=== PATIENT | female | born 1935 | race Caucasian/White ===

== ENCOUNTER 2024-10-03 18:05 | Inpatient (IN) | payer MEDICARE, SELFPAY ==
[2024-10-03] VITALS (13 sets, daily range): BP systolic 95–109; BP diastolic 48–83; PULSE 83–165; RESP 16–23; TEMP 37.2–37.4; O2SAT 96–99; BMI 19.4
--- NOTE | 2024-10-03 18:19 | EKG_ITS ---
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
--- NOTE | 2024-10-03 19:09 | EDNOTE_ITS ---
ED Arrhythmia Palp. RME/HPI General Chief Complaint: Arrhythmia/Palpitations Stated Complaint: WEAKNESS Time Seen by Provider: 10/03/24 18:58 Arrival date/time: 10/03/24 18:05 RME / HPI RME / HPI narrative: 89 y/o female presents to ED BIBA from [facility] c/o heart palpitations x 1 day. In addition, patient also complains of constipation, dark colored urine, and rectal pain x 1 week. Patient lives in an independent residential facility. She states she requested laxatives each time she had a visitor, but none have obliged her request. Also states that staff does not regularly check up on her. Patient had an appointment with an at-home health nurse at 3 PM today, but the nurse failed to show to the appointment. She has been frequently changing her pads and noted passing only small amounts of excrement but feels that she cannot get it all out. Denies any vomiting. Also denies fever and chills. Denies any dysuria or any other associated symptoms or aggravating factors. No modifying factors, no radiation, no migration. Patient also denies any use of blood thinners or history of elevated heart rate. No other concerns or complaints expressed at this time. Related Data Home Medications ?Medication ?Instructions ?Recorded ?Confirmed chlorpheniramine maleate 4 mg 4 mg PO Q8H PRN Allergy Symptoms 05/28/23 05/28/23 tablet (Allergy (chlorpheniramine)) melatonin 1 mg tablet 1 mg PO HS PRN Insomnia 05/1305/28/23 fsqntthokzvl-Wa-axza-minerals 18 1 tab PO QDAY 4 05/28/23 mg-0.4 mg tablet naproxen sodium 220 mg capsule 220 mg PO BID PRN Pain, Mild 05/28/23 05/28/23 (Aleve) Allergies Allergy/AdvReac Type Severity Reaction Status Date / Time adhesive tape Allergy Verified 10/03/24 18:17 codeine Allergy Verified 10/03/24 18:17 isosorbide (From Imdur) Allergy Verified 10/03/24 18:17 Penicillins Allergy Verified 10/03/24 18:17 Review of Systems Review of Systems Systems Reviewed: All systems reviewed, normal except as documented Past Medical History Past Medical History MUSCULOSKELETAL: Positive Musculoskeletal Disorders, Arthritis and Carpal Tunnel Syndrome ENT: Positive Cataracts and Deafness OTHER HISTORY: Positive Chicken Pox, Measles and Mumps Surgical History SURGICAL: Positive Abdominal Surgery (ulcer repair, rectal seal), Joint Replacement (feet bilateral), Knee Sx and Hysterectomy ED Exam Narrative Physical exam: GENERAL APPEARANCE: alert and oriented x 4, well-developed, well-nourished, no acute distress VITALS: All vitals were reviewed and the pulse ox is 99% on room air, which is normal according to my interpretation. HEENT: Normocephalic, atraumatic; pupils equal, round, reactive to light; EOMI; mucous membranes pink, moist; oropharynx clear NECK: Supple LUNGS: CTABL; no wheezes, no rales, no rhonchi HEART: Tachycardia, regular rhythm; normal S1, S2; no murmurs ABDOMEN: non distended; normal BS; soft, no tenderness, no guarding, no rebound; no masses, no organomegaly, no hernia BACK: no CVA tenderness EXTREMITIES: atraumatic; no edema NEUROLOGIC: awake; alert and oriented x4; cranial nerves II-XII grossly intact; no focal sensory or motor deficits PSYCHIATRIC: appropriate mood and affect SKIN: warm, dry, palor; no rashes Course Quality Measures none Orders Category Date Time Status Bedside COVID-19 Antigen Test NOW Care 10/03/24 18:59 Active Bedside Influenza A&B Antigen Test NOW Care 10/03/24 18:59 Active University Relations Recruiter NOW Care 10/03/24 18:59 Active EKG (ED ONLY) *Do not use* NOW Care 10/03/24 18:19 Completed EKG (ED Only) Stat Exams 10/03/24 18:19 Draft XR abdomen series w chest 1V Stat Exams 10/03/24 19:08 Ordered XR chest 1V portable Stat Exams 10/03/24 18:59 Stop Req B-Type Natriuretic Peptide Stat Lab 10/03/24 18:59 Ordered CBC Stat Lab 10/03/24 18:59 Ordered Comprehensive Metabolic Panel Stat Lab 10/03/24 18:59 Ordered Lipase Stat Lab 10/03/24 18:59 Ordered Magnesium Stat Lab 10/03/24 18:59 Ordered Partial Thromboplastin Time Stat Lab 10/03/24 18:59 Ordered Prothrombin Time with INR Stat Lab 10/03/24 18:59 Ordered Troponin I Stat Lab 10/03/24 18:59 Ordered Vital Signs Vital signs: Vital Signs Temperature 99.3 F 10/03/24 18:07 Pulse Rate 126 H 10/03/24 18:07 Respiratory Rate 18 10/03/24 18:07 Blood Pressure 109/70 10/03/24 18:07 Pulse Oximetry (%) 96 10/03/24 18:07 Oxygen Delivery Method Room Air 10/03/24 18:07 Arrhythmia/Palpitations MDM Narrative MDM Narrative:: Scribe Attestation: Carline Arzate, am scribing for and in the presence of Dr. Marvin. Provider Notation: Although this document has been carefully reviewed, there may still be some phonetic and other typographical errors.? These errors are purely grammatical due to imperfections in the software program and should not be construed in any way to? compromise the substance of the patient's medical care during this visit. Patient data External records reviewed:: [facility] previous records (Reviewed prior ED records from 11/01/23. Patient was seen for Closed fracture of distal clavicle.), EMS form and PCP records Clinical information provided by:: patient and EMS Social determinants that could affect healthcare access:: housing (Independent residential facility) Patient has the following chronic illnesses:: Arthritis, Carpal Tunnel Syndrome, Cataracts and Deafness How is presenting disease/condition affected by chronic disease/condition?: uneffected by Evaluation data The following diagnostics were reviewed and interpreted by me:: lab results, radiology exam(s) and EKG tracing(s) (EKG performed at 18:24, manual reading, my interpretation: Atrial fibrillation, rate: 127 bpm, no acute ischemic changes.) Lab and/or radiology exams considered but not ordered:: None Interpretation Summary: RADIOLOGY Chest/Abdomen X-Ray: Patient: BEKA BURGOS. Record#: [id number] Birthdate: 1935 Age/Sex: 89 / F Location: [facility] Attending Dr: Ordering Physician: Rosalie Marvin MD Date of Service: 10/03/24 Procedure(s): XR abdomen series w chest 1V Accession Number(s): [id number] cc: Braxton Newby MD; Agustín Dawson MD; Rosalie Marvin MD~ Examination: Abdominal series 3 views including AP portable upright chest TECHNIQUE: AP portable upright chest AP upright AP supine abdomen total 3 views October 03, 2024 1923 hours INDICATIONS: Abdominal pain today. FINDINGS: Normal heart size Lungs are clear Abundant stool throughout the colon No obstruction A few loops of air distended small bowel No free air History vascular congestion Severe osteopenia IMPRESSION: Abundant stool throughout the colon, no obstruction Dictated By: Agustín Dawson MD Signed By: <Electronically signed by Agustín Dawson MD in OV> 10/03/242106 Medications / Prescriptions Medications or Prescriptions considered but not ordered:: None Medication administrations:: See above if any. Consultations Consultation(s) initiated? (list below): Yes Consultation #1 (Physician, Specialty, Details): Discussed with Dr. Clancy for admission. Reviewed the patient?s HPI, PMHx, lab and/or radiology results. Discussed treatment plan. Will consult an admission to the hospitalist. Time: 02:35 Diagnosis Differential diagnosis arrhythmia/palpitations: palpitations, anxiety, sinus tachycardia, artial fibrillation, artial flutter, supraventricular tachycardia and ventricular tachycardia Most likely diagnosis given after review of the tests above:: Atrial Fibrillation with RvR, Constipation Admission Indicated Admission indicated?: indicated Explain why admission is indicated or not indicated:: Atrial Fibrillation with RvR, Constipation Admission Request Was there a request for admission?: Yes Admission Attestation Admission request attestation: Discussed case with [] from Hospitalist service regarding admission. Discussed patients ED course, exam findings, labs, and radiology results. The Hospitalist [agrees,declines] to accept the patient for admission. Disposition Plan Disposition Plan: Admit Discharge Plan Plan Patient Disposition: Admit Acute Care w/in Hospital Problem List Clinical Impression: Atrial fibrillation with RVR, Constipation
[2024-10-03 20:01] LABS: Basophils # (Auto) 0.1 Thou/mm3 (0.0-0.2); Basophils % (Auto) 1 % (0-2.5); Eosinophils # (Auto) 0.0 Thou/mm3 (0.0-0.5); Eosinophils % (Auto) 0 % (0-10); Hematocrit 36.9 % (36.0-46.0); Hemoglobin 12.8 g/dL (12.0-16.0); Immature Granulocytes Auto 0.05 Thou/mm3 (0.00-0.00); Lymphocytes # (Auto) 1.9 Thou/mm3 (1.0-4.8); Lymphocytes % (Auto) 22 % (10-50); Mean Corpuscular HGB Conc 34.7 g/dl (31.0-37.0); Mean Corpuscular Hemoglobin 31.6 pg (25.0-35.0); Mean Corpuscular Volume 91 fL (80-100); Monocytes # (Auto) 1.1 Thou/mm3 (0.0-0.8); Monocytes % (Auto) 13 % (0-12); Neutrophils # (Auto) 5.7 Thou/mm3 (1.8-7.7); Neutrophils % (Auto) 64 % (37-80); Nucleated Red Blood Cell # 0.00 Thou/mm3 (0.00-0.00); Nucleated Red Blood Cell % 0 /100 WBC (0); Platelet Count 279 Thou/mm3 (140-440); RDW Standard Deviation 48.7 fL (36.4-46.3); Red Blood Count 4.05 Miln/mm3 (4.00-5.20); White Blood Count 8.8 Thou/mm3 (3.6-11.0)
--- NOTE | 2024-10-03 20:07 | PC.NURSE ---
pt resting quietly at this time. family frialexandre came in to see pt.
[2024-10-03 20:18] LABS: INR 1.1 (0.9-1.3); Partial Thromboplastin Time 26.9 Seconds (22.0-36.0); Prothrombin Time 11.8 Seconds (9.0-12.2)
[2024-10-03 20:22] LABS: B-Type Natriuretic Peptide 264 pg/mL (0-100)
[2024-10-03 20:23] LABS: Alanine Aminotransferase 21 U/L (10-49); Albumin, Serum 4.5 gm/dL (3.4-4.8); Albumin/Globulin Ratio 2.6 (1.2-2.2); Alkaline Phosphatase 79 U/L (46-116); Anion Gap 11 (7-16); Aspartate Amino Transferase 25 U/L (0-34); BUN/Creatinine Ratio 17 Ratio (12-20); Bilirubin,Total 1.0 mg/dL (0.3-1.2); Blood Urea Nitrogen 15 mg/dL (9-23); Calcium 10.2 mg/dL (8.3-10.6); Calcium (Corrected) 10.2 mg/dL (8.5-10.1); Carbon Dioxide 26.4 mMol/L (20.0-31.0); Chloride 104 mMol/L (98-107); Creatinine (Component) 0.9 mg/dL (0.6-1.3); Estimated Creatinine Clearance 36.9 mL/min (>60); Globulin 1.7 gm/dL (2.3-3.5); Glucose 126 mg/dL (74-106); Lipase 24 U/L (12-53); Magnesium 2.0 mg/dL (1.6-2.6); Osmolality,Calculated 284 (275-295); Potassium 4.0 mMol/L (3.4-5.1); Sodium 141 mMol/L (136-145); Total Protein 6.2 gm/dL (5.7-8.2); Troponin I < 0.020 ng/mL (0.0-0.045); eGFR > 60 See Note
[2024-10-03] MEDS: DILTIAZEM INJ 5 MG/ML VIAL 5 ML 15 MG IV (21:33)
--- NOTE | 2024-10-03 23:55 | PC.NURSE ---
pt was given an enema and placed on BSC. no results. However, pt used her finger and was able to pull small to medium amount of stool out.
[2024-10-04] VITALS (18 sets, daily range): BP systolic 93–120; BP diastolic 63–99; PULSE 86–136; RESP 14–23; TEMP 36.3–37.2; O2SAT 94–99
--- NOTE | 2024-10-04 00:53 | EKG_ITS ---
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
--- NOTE | 2024-10-04 02:57 | ECHO_ITS ---
Transthoracic Echo Report Ht (in): 65 Wt (lb): 117 Exam Location: Echo Lab Status: Emergency Court Registry Officer: Lennie Barrow Indications: Procedure Performed: BP: 107 / 72 HR: 107 Technical Quality: Adequate MEASUREMENTS (Male / Female) Normal Values 2D ECHO LV Diastolic Diameter PLAX 4.1 cm 4.2 - 5.9 / 3.9 - 5.3 cm LV Systolic Diameter PLAX 3.0 cm IVS Diastolic Thickness 0.7 cm 0.6 - 1.0 / 0.6 - 0.9 cm LVPW Diastolic Thickness 0.9 cm 0.6 - 1.0 / 0.6 - 0.9 cm LV Relative Wall Thickness 0.4 LVOT Diameter 1.8 cm LA Volume Index 58.8 cm?/m? 16 - 28 cm?/m? DOPPLER AV Peak Velocity 101.6 cm/s AV Peak Gradient 4.1 mmHg LVOT Peak Velocity 55.0 cm/s LVOT Peak Gradient 1.2 mmHg AV Area Cont Eq pk 1.4 cm? TR Peak Velocity 204.0 cm/s TR Peak Gradient 16.6 mmHg PV Peak Velocity 57.5 cm/s PV Peak Gradient 1.3 mmHg FINDINGS Left Ventricle Normal left ventricular size, wall thickness, systolic function with no obvious regional wall motion abnormalities. Diastology not assessed due to Afib. The ejection fraction is visually estimated at 55%. Right Ventricle The right ventricle is mildly enlarged. The estimated right ventricular systolic pressure 16 mmHg. RAP 10mmHg. Left Atrium The left atrium is severely enlarged. Right Atrium The right atrium is normal by two-dimensional imaging, color flow and Doppler imaging with no structural abnormalities, no thrombus formation present. Atrial Septum There is a small PFO per color flow/Doppler with left to right shunting. Aorta The aorta is normal by two-dimensional, color flow and Doppler interrogation. Mitral Valve The mitral valve annulus is mildly calcified without stenosis. There are two mild regurgitant jets noted. Aortic Valve The aortic valve is mildly calcified without stenosis. There is no significant aortic valve regurgitation. Tricuspid Valve The tricuspid valve is normal by two-dimensional, color flow and Doppler interrogation. There is mild to moderate tricuspid regurgitation. Pulmonic Valve The pulmonic valve is not well visualized. There is no significant pulmonic valve regurgitation. Vessels The pulmonary artery appears normal. The inferior vena cava pulmonary and hepatic veins appear normal. Pericardium The pericardium is normal by two-dimensional imaging. There is no significant pericardial effusion. CONCLUSIONS Indications: New Onset Afib Normal LV. Estimated EF 55%. Mild RVE. RVSP 16mmHg. RAP 10mmHg. Severe LAE. Mild MAC. Dual Jet Mild MR. Mild AOV Calcification. Mild to Moderate TR. Small PFO. No Pericardial Effusion. Nel Edwards (Electronically Signed) Final Date: 04 October 2024 14:32
--- NOTE | 2024-10-04 03:06 | ESHP_ITS ---
<Statement entered by Joe Troncoso MD - 10/04/24 06:37> I Joe Troncoso MD reviewed the note and agree with the resident's assessment & plan with exceptions as below. I have personally reviewed labs, imaging, home meds/prior records, examined the patient, formulated and discussed management plan with the IM team. An 89-year-old female with history of gastric ulcer, CTS was sent from [facility] to ED after being noted to be in A-fib with RVR. Patient does not have any palpitations, chest pain, shortness of breath however has been having constipation and attempting manual disimpaction for herself. S/p IV digoxin bolus with resultant rate control currently in 100-110. Will start on metoprolol 25 mg twice daily, continue high intensity statin, obtain TSH, echocardiogram, lipid panel. Will provide aggressive bowel regimen. Documentation for date of: 10/04/24 HPI History of Present Illness Chief complaint: New onset atrial fibrillation with RVR History of present illness: 89-year-old female with past medical history of cataracts, gastric ulcer, and carpal tunnel syndrome who is very hard of hearing presented to the ED from [facility] due to palpitations. Apparently patient has been constipated for couple days while living in a senior assisted facility was requesting laxatives but nobody would help her. She states she had to scoop out her feces herself. Later started developing some rectal pain and heart palpitations and was brought here to the ER. In the ED patient was found with atrial fibrillation with RVR with rate approximately in the 140s was given 1 push of diltiazem and rate was controlled in the low 90s. When I went to evaluate the patient heart rate was back in the 140s 150s while speaking when she goes back to sleep break goes down to 120s. When patient was asked if she has any cardiac history she denies having any medical conditions as she always feels fine. At this time patient denies any fever, chills, blurry vision, lightheadedness, shortness of breath, chest pain, palpitations. Patient will be admitted for further atrial fibrillation. ED course: ED vitals: BP 109/70, HR 126, temperature 99.3 ?F, saturating 96% on room air ED labs: CBC unremarkable, CHEM panel unremarkable, BNP 264, EKG shows atrial fibrillation rate in the 120s, subsequent EKGs show atrial fibrillation with a rate in the 90s Chest abdomen x-ray shows abundant stool throughout the colon. PMHx: As above SX Hx: Unknown Social Hx: Denies cigarette use, denies alcohol use, denies illicit substance including THC Hx: Unknown Review of Systems Review of Systems Systems Reviewed: All systems reviewed, normal except as documented Narrative Review of Systems: All 12 systems reviewed and found negative unless otherwise stated in the HPI. Exam Vital Signs Temp Pulse Resp BP Pulse Ox O2 Del Method 98.3 F 97 19 114/74 95 Room Air 10/04/24 01:33 10/04/24 02:00 10/04/24 02:00 10/04/24 02:00 10/04/24 02:00 10/04/24 01:33 Narrative Exam Physical Exam GENERAL: NAD, AAOx3, very hard of hearing, HEENT: Moist mucosa. Eyes open, symmetrical, & clear CARDIO: Heart RRR, no obvious murmurs PULM: No noted coughing/dyspnea CTA B/L, no R/W/R GI: Abdomen soft, nondistended, no pain on palpation. BSx4 SKIN/MSK/EXT: +1 bilateral lower extremity edema, no pain on palpation. Pedal pulses present B/L NEURO: AAOx3, no focal neuro deficits, able to move all 4 extremities Results: Labs 10/03/24 19:43 10/03/24 19:43 Labs: Short CBC 10/03/24 Range/Units 19:43 WBC 8.8 (3.6-11.0) Thou/mm3 Hgb 12.8 (12.0-16.0) g/dL Hct 36.9 (36.0-46.0) % Plt Count 279 (140-440) Thou/mm3 BMP 10/03/24 19:43 Sodium 141 Potassium 4.0 Chloride 104 Carbon Dioxide 26.4 BUN 15 Creatinine 0.9 Glucose 126 H Calcium 10.2 Cardiac Enzymes 10/03/24 Range/Units 19:43 Troponin I < 0.020 (0.0-0.045) ng/mL Liver Function 10/03/24 Range/Units 19:43 Total Bilirubin 1.0 (0.3-1.2) mg/dL AST 25 (0-34) U/L ALT 21 (10-49) U/L Alkaline Phosphatase 79 (46-116) U/L Albumin 4.5 (3.4-4.8) gm/dL Quality Measures Quality Measures none Advance care planning discussed with:: patient Medications Home Medications and Allergies Home Medications ?Medication ?Instructions ?Recorded ?Confirmed ?Type chlorpheniramine maleate 4 mg 4 mg PO Q8H PRN Allergy Symptoms 05/28/23 05/28/23 History tablet (Allergy (chlorpheniramine)) melatonin 1 mg tablet 1 mg PO HS PRN Insomnia 05/1305/28/23 History zyckvrqqybud-Ns-wyow-minerals 18 1 tab PO QDAY 4 05/28/23 History mg-0.4 mg tablet naproxen sodium 220 mg capsule 220 mg PO BID PRN Pain, Mild 05/28/23 05/28/23 History (Aleve) Allergies Allergy/AdvReac Type Severity Reaction Status Date / Time adhesive tape Allergy Verified 10/03/24 18:17 codeine Allergy Verified 10/03/24 18:17 isosorbide (From Imdur) Allergy Verified 10/03/24 18:17 Penicillins Allergy Verified 10/03/24 18:17 Visit Medications Acetaminophen (Acetaminophen 325 Mg Tablet) 650 mg PO Q6H PRN PRN Reason: Fever >100.5 Stop: 11/03/24 02:56 Acetaminophen (Acetaminophen 325 Mg Tablet) 1,000 mg PO Q6H PRN PRN Reason: PAIN SCALE 1-3 (mild Stop: 11/03/24 02:56 Docusate Sodium (Docusate Sod 100 Mg Capsule) 100 mg PO QDAY [place]; Protocol Stop: 11/03/24 08:59 Enoxaparin Sodium (Enoxaparin Sod Inj 100 Mg/Ml Syringe) 53 mg 1 mg/kg (53 mg) SC BID [place] Stop: 10/18/24 08:59 Magnesium Hydroxide (Milk Of Magnesia Susp 30 Ml Udc) 30 ml PO QDAY PRN; Protocol PRN Reason: CONSTIPATION Stop: 11/03/24 02:56 Metoprolol Succinate (Metoprolol Succinate Xl 25 Mg Tabcr) 25 mg PO QDAY [place] Stop: 11/03/24 08:59 Ondansetron HCl (Ondansetron Inj 2 Mg/Ml Inj 2 Ml) 4 mg IVP Q6H PRN; Protocol PRN Reason: NAUSEA OR VOMITING Stop: 11/03/24 02:56 Sennosides (Senna Tablet) 1 tab PO QDAY [place]; Protocol Stop: 11/03/24 08:59 Discontinued Medications Diltiazem HCl (Diltiazem Inj 5 Mg/Ml Vial 5 Ml) 15 mg IV X1 ONE Stop: 10/03/24 20:51 Last Admin: 10/03/24 21:33 Dose: 15 mg Assessment & Plan Plan 89-year-old female with past medical history as stated above who presented to the ED with heart palpitations patient will be admitted for management of atrial fibrillation with RVR. #New onset atrial fibrillation with RVR Presented with new-onset atrial fibrillation with rate in the 140s EKG shows: Atrial fibrillation with RVR, post diltiazem 50 mg x 1 EKG shows A- fib rate controlled CHADSVasc= 3 indicating 3.2% risk of stroke per year HAS-BLED= 0 Current rate in the 120s, but patient is asymptomatic denies any chest pain, palpitations, shortness of breath and hemodynamically stable ? Telemetry ? Metoprolol XL for rate control ? Keep K> 4, Mg> 2 ? Echo ordered ? Lovenox 1 Mg per KG twice daily ? Follow-up TSH, free T4, lipid panel ? Consider consult to cardiology #Constipation ? Bowel regimen ordered Health Maintenance: Disposition: Telemetry, eval for A-fib with RVR Fluids: None Feeding: Low-sodium diet Thrombo prophylaxis: Lovenox 1 Mg per KG twice daily Gastric Ulcer prophylaxis: Not indicated CODE STATUS: DNR Case discussed with my attending Dr. Aba Newby MD PGY-1 Disclaimer: Despite multiple revisions, due to the dictation software being used, the document bellow may not be free of grammatical errors including phonetic/typographic errors. However, this does not deter from our commitment to providing health care in the patient's best interest in mind.
--- NOTE | 2024-10-04 05:02 | PC.NURSE ---
pot inc of sm brown loose stool. pt cleaned and changed.
--- NOTE | 2024-10-04 05:32 | PC.NURSE ---
pt still afib. hr 108.
--- NOTE | 2024-10-04 06:25 | PC.NURSE ---
pt resting quietly. no changes. wating for rm. remains in a fib hr 102.
[2024-10-04 06:38] LABS: Basophils # (Auto) 0.1 Thou/mm3 (0.0-0.2); Basophils % (Auto) 1 % (0-2.5); Eosinophils # (Auto) 0.1 Thou/mm3 (0.0-0.5); Eosinophils % (Auto) 1 % (0-10); Hematocrit 35.3 % (36.0-46.0); Hemoglobin 12.4 g/dL (12.0-16.0); Immature Granulocytes Auto 0.02 Thou/mm3 (0.00-0.00); Lymphocytes # (Auto) 2.6 Thou/mm3 (1.0-4.8); Lymphocytes % (Auto) 33 % (10-50); Mean Corpuscular HGB Conc 35.1 g/dl (31.0-37.0); Mean Corpuscular Hemoglobin 31.1 pg (25.0-35.0); Mean Corpuscular Volume 89 fL (80-100); Monocytes # (Auto) 1.1 Thou/mm3 (0.0-0.8); Monocytes % (Auto) 14 % (0-12); Neutrophils # (Auto) 4.0 Thou/mm3 (1.8-7.7); Neutrophils % (Auto) 51 % (37-80); Nucleated Red Blood Cell # 0.00 Thou/mm3 (0.00-0.00); Nucleated Red Blood Cell % 0 /100 WBC (0); Platelet Count 245 Thou/mm3 (140-440); RDW Standard Deviation 46.9 fL (36.4-46.3); Red Blood Count 3.99 Miln/mm3 (4.00-5.20); White Blood Count 7.9 Thou/mm3 (3.6-11.0)
[2024-10-04 07:03] LABS: Alanine Aminotransferase 20 U/L (10-49); Albumin, Serum 3.9 gm/dL (3.4-4.8); Albumin/Globulin Ratio 2.1 (1.2-2.2); Alkaline Phosphatase 79 U/L (46-116); Anion Gap 8 (7-16); Aspartate Amino Transferase 23 U/L (0-34); BUN/Creatinine Ratio 18 Ratio (12-20); Bilirubin,Total 0.8 mg/dL (0.3-1.2); Blood Urea Nitrogen 14 mg/dL (9-23); Calcium 8.8 mg/dL (8.3-10.6); Calcium (Corrected) 8.9 mg/dL (8.5-10.1); Carbon Dioxide 30.0 mMol/L (20.0-31.0); Cardiac Risk Estimate 2.7 RATIO (3.7-5.6); Chloride 106 mMol/L (98-107); Cholesterol 124 mg/dL (132-200); Creatinine (Component) 0.8 mg/dL (0.6-1.3); Estimated Creatinine Clearance 41.5 mL/min (>60); Free T4 (Free Thyroxine) 1.13 ng/dL (0.89-1.76); Globulin 1.9 gm/dL (2.3-3.5); Glucose 117 mg/dL (74-106); HDL Cholesterol 46 mg/dL (40-60); LDL Cholesterol,Calculated 63 mg/dL (0-130); Magnesium 2.0 mg/dL (1.6-2.6); Osmolality,Calculated 288 (275-295); Potassium 3.8 mMol/L (3.4-5.1); Sodium 144 mMol/L (136-145); Thyroid Stimulating Hormone 1.92 uIU/mL (0.55-4.78); Total Protein 5.8 gm/dL (5.7-8.2); Triglycerides 77 mg/dL (30-150); eGFR > 60 See Note
--- NOTE | 2024-10-04 07:25 | PC.NURSE ---
report called to Floor RN
[2024-10-04] MEDS: METOPROLOL SUCCINATE XL 25 MG TABCR PO (08:56)
[2024-10-04] MEDS: DOCUSATE SOD 100 MG CAPSULE PO (08:57)
[2024-10-04] MEDS: ENOXAPARIN SOD INJ 100 MG/ML SYRINGE 50 MG SC ×2 (08:58→20:22)
[2024-10-04] MEDS: AMIODARONE 150 MG IVPB 150 MG/100 ML BAG 600 MG IV (11:23)
[2024-10-04] MEDS: AMIODARONE 360 MG IVPB 360 MG/200 ML BAG 33.333 MG IV (11:56)
--- NOTE | 2024-10-04 13:22 | PD.RESPRO ---
Documentation for date of: 10/04/24 Subjective Subjective Interval history: Patient examined at bedside. Has no major complaints states that she did have a bowel movement since admission. She has tried minimal hukn-vrb-vibermh remedies the past week for treatment of her constipation. Currently denies any shortness of breath, chest pain, palpitations, headaches. Reviewed telemetry this morning and she remains in A-fib at a rate of 120?130. We consulted cardiology Dr. Edwards, appreciate the recommendations. Started amiodarone drip and continue PO metoprolol 25 mg XL for rhythm and rate control. Patient's Adi Vascor calculated to be 3 (+2 points for age, +1 for gender). Therefore she was started on Lovenox 50mg BID and will transition to p.o. Eliquis 5 mg twice daily at discharge. Continue monitoring symptoms and replete electrolytes. Echo is pending. Continue daily bowel regimen until regular. Exam Vital Signs Temp Pulse Resp BP Pulse Ox O2 Del Method 97.3 F 96 18 118/76 98 Room Air 10/04/24 11:59 10/04/24 11:59 10/04/24 11:59 10/04/24 11:59 10/04/24 11:59 10/04/24 11:59 Narrative Exam General: Elderly female, no acute distress, cooperative HEENT: NCAT, No JVD noted. Mucosa moist. Pupils are equal and reactive to light bilaterally Cardiovascular: Normal S1 and S2. Irregular rhythm and rate Respiratory: Lungs are clear to auscultation bilaterally. No wheezing or crackles heard. Abdomen: Soft, nontender, not distended, normal bowel sounds. Skin: Warm to touch, dry, no rashes noted Musculoskeletal: No gross injuries. Able to move all 4 extremities. No pitting edema Neuro: Alert and oriented x3. No focal neuro deficits. Psych: Normal affect and mood Objective Labs 10/05/24 04:48 10/05/24 04:48 Labs: Laboratory Results - last 24 hr 10/03/24 10/04/24 19:43 06:28 WBC 8.8 7.9 RBC 4.05 3.99 L Hgb 12.8 12.4 Hct 36.9 35.3 L MCV 91 89 MCH 31.6 31.1 MCHC 34.7 35.1 RDW Std Deviation 48.7 H 46.9 H Plt Count 279 245 D Neut % (Auto) 64 51 Lymph % (Auto) 22 33 [place] % (Auto) 13 H 14 H Eos % (Auto) 0 1 Baso % (Auto) 1 1 Neut # (Auto) 5.7 4.0 Lymph # (Auto) 1.9 2.6 [place] # (Auto) 1.1 H 1.1 H Eos # (Auto) 0.0 0.1 Baso # (Auto) 0.1 0.1 Immature Gran # (Auto) 0.05 H 0.02 H Absolute Nucleated RBC 0.00 0.00 Immature Gran % 1 H 0 Nucleated RBC % 0 0 PT 11.8 INR 1.1 APTT 26.9 Sodium 141 144 Potassium 4.0 3.8 Chloride 104 106 Carbon Dioxide 26.4 30.0 Anion Gap 11 8 BUN 15 14 Creatinine 0.9 0.8 Estim Creat Clear Calc 36.9 L 41.5 L eGFR > 60 > 60 BUN/Creatinine Ratio 17 18 Glucose 126 H 117 H Calculated Osmolality 284 288 Calcium 10.2 8.8 Corrected Calcium 10.2 H 8.9 Magnesium 2.0 2.0 Total Bilirubin 1.0 0.8 AST 25 23 ALT 21 20 Alkaline Phosphatase 79 79 Troponin I < 0.020 B-Natriuretic Peptide 264 H Total Protein 6.2 5.8 Albumin 4.5 3.9 D Globulin 1.7 L 1.9 L Albumin/Globulin Ratio 2.6 H 2.1 Triglycerides 77 Cholesterol 124 L LDL Cholesterol, Calc 63 HDL Cholesterol 46 Cholesterol/HDL Ratio 2.7 L Lipase 24 TSH 1.92 Free T4 1.13 Quality Measures Quality Measures none Advance care planning discussed with:: patient Assessment & Plan Assessment Current Active Medications: Generic Name Dose Route Start Last Admin Trade Name Freq PRN Reason Stop Dose Admin Acetaminophen 650 mg 10/04/24 02:57 Acetaminophen 325 Mg Tablet PO 11/03/24 02:56 Q6H PRN Fever >100.5 Acetaminophen 1,000 mg 10/04/24 03:07 Acetaminophen 500 Mg Tablet PO 11/03/24 03:06 Q6H PRN PAIN SCALE 1-3 (mild Docusate Sodium 100 mg 10/04/24 09:00 10/04/24 08:57 Docusate Sod 100 Mg Capsule PO 11/03/24 08:59 100 mg QDAY GEOR[place]NA Administration Protocol Enoxaparin Sodium 50 mg 10/04/24 09:00 10/04/24 08:58 Enoxaparin Sod Inj 100 Mg/Ml Syringe SC 10/18/24 08:59 50 mg BID GE[place]NA Administration Protocol Amiodarone HCl/Dextrose 360 mg in 200 mls @ 33.333 mls/hr 10/04/24 10:59 10/04/24 11:56 Nexterone Ivpb IV 10/04/24 16:58 33.333 mls/hr .Q6H ONE Administration Amiodarone HCl/Dextrose 360 mg in 200 mls @ 16.667 mls/hr 10/04/24 16:58 Nexterone Ivpb IV 10/05/24 16:57 .Q12H GE[place]NA Magnesium Hydroxide 30 ml 10/04/24 02:57 Milk Of Magnesia Susp 30 Ml Udc PO 11/03/24 02:56 QDAY PRN CONSTIPATION Protocol Melatonin 3 mg 10/04/24 21:00 Melatonin 3 Mg Tablet PO 11/03/24 20:59 HS GEORG[place]NA Metoprolol Succinate 25 mg 10/04/24 03:20 10/04/24 08:56 Metoprolol Succinate Xl 25 Mg Tabcr PO 11/03/24 03:19 25 mg QDAY GE[place]NA Administration Ondansetron HCl 4 mg 10/04/24 02:57 Ondansetron Inj 2 Mg/Ml Inj 2 Ml IVP 11/03/24 02:56 Q6H PRN NAUSEA OR VOMITING Protocol Sennosides 1 tab 10/04/24 09:00 10/04/24 08:56 Senna Tablet PO 11/03/24 08:59 1 tab QDAY GE[place]NA Administration Protocol Plan Ysabel Campbell is 89-year-old female with past medical history cataracts, gastric ulcer, carpal tunnel syndrome who presented to the ED from senior resident home with chief complaint of constipation. For the past week has not been able to have a bowel movement. While in the ED workup showed A-fib with RVR rate 140?150. Cardiology Dr. Edwards was consulted and patient mated for management of constipation and new onset A-fib with RVR. #New onset atrial fibrillation with RVR Presented with new-onset atrial fibrillation with rate in the 140s EKG showed: Atrial fibrillation with RVR, post diltiazem 50 mg x 1. She was started on p.o. metoprolol succinate 25 mg daily. Currently denying any shortness of breath, chest pain, palpitations. Possible cause of onset of this atrial fibrillation may be due to stress from the constipation, autonomic dysfunction. CHADSVasc= 3 indicating 3.2% risk of stroke per year HAS-BLED= 0 TSH normal (1.92), lipid panel normal -Cardiology Dr. Edwards was consulted, appreciate recommendations--start amiodarone drip, PO Eliquis 5mg BID on discharge ? Metoprolol XL25 mg daily for rate control ? Keep K> 4, Mg> 2 ? Echo pending ? Lovenox 1 Mg per KG twice daily (50mg BID) #Constipation Ongoing for the past 1 week, has used minimal gmlb-znd-fvibuyo medications. Ended up trying to manually disimpact herself did not appear to be successful. Presented to ED for management of constipation. Since starting docusate, she has had 2 BM. ? docusate 100mg daily -monitor BM Health Maintenance: Disposition: Telemetry, A-fib with RVR, echo Feeding: Low-sodium diet DVT proph: Lovenox 1 Mg per KG BID (50mg BID) CODE STATUS: DNR The patient's management plan was discussed with my attending physician Dr. Ingram. Michelle Madison, PGY-1 Attending Provider Attestation/Addendum I have examined the patient, reviewed labs and imaging findings, discussed the case with the resident(s), and reviewed entered orders. I agree with the plan of care as outlined in this note, with these additional summaries/recommendations: Patient seen at bedside. She currently denies shortness of breath, palpitations or chest pain. Patient was diagnosed with new onset atrial fibrillation with rapid ventricular response. Patient remains in RVR this morning with rates into the 130s. Cardiology consulted and patient started on amiodarone drip. We will monitor for improvement. Patient was also started on daily metoprolol. Echocardiogram pending. Unclear trigger for new onset A-fib although patient endorses being severely constipated and not having a bowel movement in over 1 week. Patient found to have elevated [id number] score and started on therapeutic Lovenox which we will continue and likely transition to NOAC within the next 24 to 48 hours. Patient reports she had a bowel movement and has had significant improvement in abdominal discomfort. Continue to monitor electrolytes and hemodynamics closely. Patient updated on the plan and in agreement. All questions answered to satisfaction. Please see residents note for additional details and management. Dr. Nataly MD
--- NOTE | 2024-10-04 16:52 | PC.NURSE ---
pt does not have list of medications, per pt family to bring in medication list, med rec not complete at this time
--- NOTE | 2024-10-04 16:53 | PC.NURSE ---
at 0900, Dr. Madison notified of patient heart rate in 150s at times, no orders received
[2024-10-04] MEDS: AMIODARONE 360 MG IVPB 360 MG/200 ML BAG 16.667 MG IV (19:34)
[2024-10-04] MEDS: MELATONIN 3 MG TABLET PO (20:21)
[2024-10-05] VITALS (16 sets, daily range): BP systolic 96–116; BP diastolic 57–76; PULSE 74–130; RESP 18–26; TEMP 36.1–36.9; O2SAT 93–96; BMI 19.1
[2024-10-05 06:04] LABS: Basophils # (Auto) 0.0 Thou/mm3 (0.0-0.2); Basophils % (Auto) 0 % (0-2.5); Eosinophils # (Auto) 0.1 Thou/mm3 (0.0-0.5); Eosinophils % (Auto) 1 % (0-10); Hematocrit 37.5 % (36.0-46.0); Hemoglobin 12.4 g/dL (12.0-16.0); Immature Granulocytes Auto 0.03 Thou/mm3 (0.00-0.00); Lymphocytes # (Auto) 2.1 Thou/mm3 (1.0-4.8); Lymphocytes % (Auto) 24 % (10-50); Mean Corpuscular HGB Conc 33.1 g/dl (31.0-37.0); Mean Corpuscular Hemoglobin 30.8 pg (25.0-35.0); Mean Corpuscular Volume 93 fL (80-100); Monocytes # (Auto) 1.3 Thou/mm3 (0.0-0.8); Monocytes % (Auto) 15 % (0-12); Neutrophils # (Auto) 5.4 Thou/mm3 (1.8-7.7); Neutrophils % (Auto) 60 % (37-80); Nucleated Red Blood Cell # 0.00 Thou/mm3 (0.00-0.00); Nucleated Red Blood Cell % 0 /100 WBC (0); Platelet Count 231 Thou/mm3 (140-440); RDW Standard Deviation 50.3 fL (36.4-46.3); Red Blood Count 4.03 Miln/mm3 (4.00-5.20); White Blood Count 8.9 Thou/mm3 (3.6-11.0)
[2024-10-05 06:26] LABS: Alanine Aminotransferase 16 U/L (10-49); Albumin, Serum 3.7 gm/dL (3.4-4.8); Albumin/Globulin Ratio 2.1 (1.2-2.2); Alkaline Phosphatase 76 U/L (46-116); Anion Gap 9 (7-16); Aspartate Amino Transferase 20 U/L (0-34); BUN/Creatinine Ratio 15 Ratio (12-20); Bilirubin,Total 0.5 mg/dL (0.3-1.2); Blood Urea Nitrogen 12 mg/dL (9-23); Calcium 8.9 mg/dL (8.3-10.6); Calcium (Corrected) 9.1 mg/dL (8.5-10.1); Carbon Dioxide 29.5 mMol/L (20.0-31.0); Chloride 103 mMol/L (98-107); Creatinine (Component) 0.8 mg/dL (0.6-1.3); Estimated Creatinine Clearance 40.7 mL/min (>60); Globulin 1.8 gm/dL (2.3-3.5); Glucose 115 mg/dL (74-106); Magnesium 1.8 mg/dL (1.6-2.6); Osmolality,Calculated 281 (275-295); Phosphorous 3.1 mg/dL (2.4-5.1); Potassium 4.0 mMol/L (3.4-5.1); Sodium 141 mMol/L (136-145); Total Protein 5.5 gm/dL (5.7-8.2); eGFR > 60 See Note
--- NOTE | 2024-10-05 07:51 | PD.IMCONS ---
HPI Data of Consult Requesting Physician: Chris Ingram MD Primary Care Provider: Braxton Newby MD Consult Narrative History of present illness: This is a 89-year-old female with past medical history of cataracts, gastric ulcer, and carpal tunnel syndrome Patient was seen in the emergency room with a history of palpitation Also gives a history of constipation In the emergency room patient's EKG shows rapid atrial fibrillation heart rate was 140-150 range Patient received diltiazem IV push Patient's. Subsequently was started on amiodarone drip as per protocol Also receiving metoprolol 25 Daily Patient denies any prior cardiac history no prior history of atrial fibrillation Echocardiographic exam shows normal LV size and function Small PFO noted Ejection fraction 55% cc:: cc: Chris Ingram MD Meds Home Medications and Allergies Home Medications ?Medication ?Instructions ?Recorded ?Confirmed ?Type chlorpheniramine maleate 4 mg 4 mg PO Q8H PRN Allergy Symptoms 05/28/23 05/28/23 History tablet (Allergy (chlorpheniramine)) melatonin 1 mg tablet 1 mg PO HS PRN Insomnia 05/28/23 05/28/23 History wbqtuydpsfvf-Ql-wjun-minerals 18 1 tab PO QDAY 05/28/23 05/28/23 History mg-0.4 mg tablet naproxen sodium 220 mg capsule 220 mg PO BID PRN Pain, Mild 05/28/23 05/28/23 History (Aleve) Allergies Allergy/AdvReac Type Severity Reaction Status Date / Time adhesive tape Allergy Verified 10/03/24 18:17 codeine Allergy Verified 10/03/24 18:17 isosorbide (From Imdur) Allergy Verified 10/03/24 18:17 Penicillins Allergy Verified 10/03/24 18:17 Exam Vital Signs Temp Pulse Resp BP Pulse Ox O2 Del Method 97.5 F 94 19 103/63 94 L Room Air 10/05/24 04:00 10/05/24 04:00 10/05/24 04:00 10/05/24 04:00 10/05/24 04:00 10/05/24 04:00 Routine HEENT Exam Head: Present normocephalic and atraumatic Eye: Present EOMI and PERRL ENT: Present mucous membranes moist Routine Neck Exam Neck: Present supple and trachea midline Routine Respiratory Exam Respiratory: Present chest non-tender, lungs clear, normal breath sounds and no resp distress Routine Cardiovascular Exam Cardiovascular: Present RRR Routine Abdominal Exam Abdominal: Present soft and normoactive bowel sounds Routine Extremities Exam Extremities: Present full ROM Routine Skin Exam Skin: Present intact, dry and warm Routine Neurological Exam Neurological: Present alert, oriented X3 and CN II-XII intact Routine Psychiatric Exam Psychiatric: Present normal affect and normal thought process Results Labs 10/05/24 04:48 10/05/24 04:48 Labs: Short CBC 10/05/24 Range/Units 04:48 WBC 8.9 (3.6-11.0) Thou/mm3 Hgb 12.4 (12.0-16.0) g/dL Hct 37.5 (36.0-46.0) % Plt Count 231 (140-440) Thou/mm3 BMP 10/05/24 04:48 Sodium 141 Potassium 4.0 Chloride 103 Carbon Dioxide 29.5 BUN 12 Creatinine 0.8 Glucose 115 H Calcium 8.9 Liver Function 10/05/24 Range/Units 04:48 Total Bilirubin 0.5 (0.3-1.2) mg/dL AST 20 (0-34) U/L ALT 16 (10-49) U/L Alkaline Phosphatase 76 (46-116) U/L Albumin 3.7 (3.4-4.8) gm/dL Assessment and Plan Assessment and plan (1) Atrial fibrillation with RVR: Status: Acute (2) Constipation: Status: Acute Additional Assessment & Plan Additional Plan: Continue amiodarone as per protocol Heart rate currently varies between 90-110 Agree with treatment with metoprolol Continue anticoagulation start Eliquis 5 mg twice daily if there is no bleeding issues Echo shows normal LV size and function small PFO the PFO could be managed as outpatient Troponins negative If patient's heart rate does not improve we will add jad Hill
[2024-10-05] MEDS: DOCUSATE SOD 100 MG CAPSULE PO (08:21)
[2024-10-05] MEDS: METOPROLOL SUCCINATE XL 25 MG TABCR PO (08:21)
[2024-10-05] MEDS: ENOXAPARIN SOD INJ 100 MG/ML SYRINGE 50 MG SC (08:22)
[2024-10-05] MEDS: AMIODARONE 360 MG IVPB 360 MG/200 ML BAG 16.667 MG IV (08:26)
[2024-10-05] MEDS: Magnesium Sulfate 2 GM Ivpb 2 GM/50 ML BAG IV (08:37)
[2024-10-05] MEDS: APIXABAN 2.5 MG TABLET 5 MG PO (08:39)
--- NOTE | 2024-10-05 10:05 | PC.SS ---
PC MAINTENANCE TECHNICIAN conducted bedside contact with the patient conduct initial assessment and to discuss discharge planning.? Patient confirmed demographic information.? Patient resides alone at home. ?Patient is retired.? Patient utilizes a walker to assist with ambulation.? Patient does not utilize home oxygen.? Patient describes the ability to complete ADL?s independently.? Patient identified sister in law, Tena Campbell ; as medical surrogate decision maker.? Patient?s PCP is Dr. Newby [facility].? Patient does not possess any specialty provider.? Patient utilizes [facility] for medication services.? Patient confirms access to provisions and basic utilities.? Plan is for the patient to return home at the time of discharge.? Family will provide transportation on behalf of the patient. ?No further discharge needs identified by the patient.? No further intervention required at this time, older adult social work specialist will be available to address any further concerns.? Next of Kin: Tena Campbell D/C Plan: Home
[2024-10-05] MEDS: LACTULOSE SYRUP 20 GM/30 ML UDC PO (10:34)
[2024-10-05] MEDS: DILTIAZEM 30 MG TABLET PO ×3 (12:19→23:36)
--- NOTE | 2024-10-05 14:22 | PD.RESPRO ---
Documentation for date of: 10/05/24 Subjective Subjective Interval history: Patient examined at bedside. No events overnight. No major complaints. Per nursing, patient has had good bowel movement. Continue current bowel regimen. Reviewed telemetry and patient remains in A-fib with heart rate 110?115 while even on metoprolol. She will finish her last bag of amiodarone loading dose this afternoon. Transition to p.o. amiodarone 200 twice daily. Echo completed yesterday showed EF 55%, small PFO. She will continue p.o. Eliquis 2.5 twice daily and diltiazem 30 mg q6hr PO for rate control as BP not permissible for metoprolol. Physical therapy evaluation is pending. Anticipate discharge next 24 hours. Exam Vital Signs Temp Pulse Resp BP Pulse Ox O2 Del Method 97.0 F 98 18 98/76 94 L Room Air 10/05/24 12:00 10/05/24 12:19 10/05/24 12:00 10/05/24 12:19 10/05/24 12:00 10/05/24 12:00 Narrative Exam General: Elderly female, no acute distress, cooperative HEENT: NCAT, No JVD noted. Mucosa moist. Pupils are equal and reactive to light bilaterally Cardiovascular: Normal S1 and S2. Irregular rhythm and rate Respiratory: Lungs are clear to auscultation bilaterally. No wheezing or crackles heard. Abdomen: Soft, nontender, not distended, normal bowel sounds. Skin: Warm to touch, dry, no rashes noted Musculoskeletal: No gross injuries. Able to move all 4 extremities. No pitting edema Neuro: Alert and oriented x3. No focal neuro deficits. Psych: Normal affect and mood Objective Labs 10/06/24 04:38 10/06/24 04:38 Labs: Laboratory Results - last 24 hr 10/05/24 04:48 WBC 8.9 RBC 4.03 Hgb 12.4 Hct 37.5 MCV 93 MCH 30.8 MCHC 33.1 RDW Std Deviation 50.3 H Plt Count 231 Neut % (Auto) 60 Lymph % (Auto) 24 [place] % (Auto) 15 H Eos % (Auto) 1 Baso % (Auto) 0 Neut # (Auto) 5.4 Lymph # (Auto) 2.1 [place] # (Auto) 1.3 H Eos # (Auto) 0.1 Baso # (Auto) 0.0 Immature Gran # (Auto) 0.03 H Absolute Nucleated RBC 0.00 Immature Gran % 0 Nucleated RBC % 0 Sodium 141 Potassium 4.0 Chloride 103 Carbon Dioxide 29.5 Anion Gap 9 BUN 12 Creatinine 0.8 Estim Creat Clear Calc 40.7 L eGFR > 60 BUN/Creatinine Ratio 15 Glucose 115 H Calculated Osmolality 281 Calcium 8.9 Corrected Calcium 9.1 Phosphorus 3.1 Magnesium 1.8 Total Bilirubin 0.5 AST 20 ALT 16 Alkaline Phosphatase 76 Total Protein 5.5 L Albumin 3.7 Globulin 1.8 L Albumin/Globulin Ratio 2.1 Quality Measures Quality Measures none Advance care planning discussed with:: patient Assessment & Plan Assessment Current Active Medications: Generic Name Dose Route Start Last Admin Trade Name Freq PRN Reason Stop Dose Admin Acetaminophen 650 mg 10/04/24 02:57 Acetaminophen 325 Mg Tablet PO 11/03/24 02:56 Q6H PRN Fever >100.5 Acetaminophen 1,000 mg 10/04/24 03:07 Acetaminophen 500 Mg Tablet PO 11/03/24 03:06 Q6H PRN PAIN SCALE 1-3 (mild Amiodarone HCl 200 mg 10/05/24 17:00 Amiodarone Hcl 200 Mg Tablet PO 11/04/24 16:59 BID GEOR[place]NA Apixaban 5 mg 10/05/24 09:00 10/05/24 08:39 Apixaban 2.5 Mg Tablet PO 11/04/24 08:59 5 mg BID GE[place]NA Administration Diltiazem HCl 30 mg 10/05/24 12:00 10/05/24 12:19 Diltiazem 30 Mg Tablet PO 11/04/24 11:59 30 mg Q6HR GE[place]NA Administration Docusate Sodium 100 mg 10/04/24 09:00 10/05/24 08:21 Docusate Sod 100 Mg Capsule PO 11/03/24 08:59 100 mg QDAY GE[place]NA Administration Protocol Amiodarone HCl/Dextrose 360 mg in 200 mls @ 16.667 mls/hr 10/04/24 16:58 10/05/24 08:26 Nexterone Ivpb IV 10/05/24 16:57 16.667 mls/hr .Q12H GE[place]NA Administration Lactulose 20 gm 10/05/24 10:30 10/05/24 10:34 Lactulose Syrup 20 Gm/30 Ml Udc PO 11/04/24 10:29 20 gm DAILY GEOR[place]NA Administration Protocol Magnesium Hydroxide 30 ml 10/04/24 02:57 Milk Of Magnesia Susp 30 Ml Udc PO 11/03/24 02:56 QDAY PRN CONSTIPATION Protocol Melatonin 3 mg 10/04/24 21:00 10/04/24 20:21 Melatonin 3 Mg Tablet PO 11/03/24 20:59 3 mg HS GE[place]NA Administration Ondansetron HCl 4 mg 10/04/24 02:57 Ondansetron Inj 2 Mg/Ml Inj 2 Ml IVP 11/03/24 02:56 Q6H PRN NAUSEA OR VOMITING Protocol Plan Ysabel Campbell is 89-year-old female with past medical history cataracts, gastric ulcer, carpal tunnel syndrome who presented to the ED from senior resident home with chief complaint of constipation. For the past week has not been able to have a bowel movement. While in the ED workup showed A-fib with RVR rate 140?150. Cardiology Dr. Edwards was consulted and patient mated for management of constipation and new onset A-fib with RVR. #New onset atrial fibrillation with RVR Presented with new-onset atrial fibrillation with rate in the 140s EKG showed: Atrial fibrillation with RVR, post diltiazem 50 mg x 1. She was started on p.o. metoprolol succinate 25 mg daily. Currently denying any shortness of breath, chest pain, palpitations. Possible cause of onset of this atrial fibrillation may be due to stress from the constipation, autonomic dysfunction. CHADSVasc= 3 indicating 3.2% risk of stroke per year HAS-BLED= 0 TSH normal (1.92), lipid panel normal Echo completed 10/04/24 showed EF 55%, small PFO. -Cardiology Dr. Edwards was consulted, appreciate recommendations--will complete IV amiodarone this PM, transition to PO Eliquis 2.5mg BID ? held Metoprolol XL25 mg daily due to low BP ? Keep K> 4, Mg> 2 - Discharge on diltiazem 30 mg q6hr and PO amiodarone 200mg BID #Constipation-improving Ongoing for the past 1 week, has used minimal eswk-qtr-xmrwufo medications. Ended up trying to manually disimpact herself did not appear to be successful. Presented to ED for management of constipation. Since starting docusate, she has had 2 BM. ? docusate 100mg daily -lacutlose 20mg daily -monitor BM Health Maintenance: Disposition: Telemetry, A-fib with RVR, PT pending Feeding: Low-sodium diet DVT proph:Elquis 2.5 BID CODE STATUS: DNR The patient's management plan was discussed with my attending physician Dr. Ingram. Michelle Madison, PGY-1 Attending Provider Attestation/Addendum I have examined the patient, reviewed labs and imaging findings, discussed the case with the resident(s), and reviewed entered orders. I agree with the plan of care as outlined in this note, with these additional summaries/recommendations: Patient seen at bedside. She currently denies shortness of breath, palpitations or chest pain. Patient noted to have soft blood pressure this morning although no complaints at this time. Patient was diagnosed with new onset atrial fibrillation with rapid ventricular response. Overall heart rate has significantly improved after starting amiodarone gtt, although pulse remains labile. Cardiology following. We will monitor for improvement. S/P Amio drip and transitioned to oral amiodarone 200mg PO BID. Start oral Cardizem for better rate control and monitor hemodynamics closely. Echocardiogram howed EF 55%, Severe LAE, and small PFO. Patient found to have elevated [id number] score and started on therapeutic Lovenox and transitioned to NOAC. Risks and benefits of anticoagulation explained to patient and daughter and both in agreement with anticoagulation at this time. Continue aggressive bowel regimen or severe constipation. Patient updated on the plan and in agreement. All questions answered to satisfaction. Please see residents note for additional details and management. Dr. Nataly MD
--- NOTE | 2024-10-05 16:01 | PC.SS ---
ROLLING MACHINE OPERATOR conducted bedside contact with the patient. Patient informed ROLLING MACHINE OPERATOR of desire to transition to SNF upon discharge. Preferred SNF is [facility]. ROLLING MACHINE OPERATOR informed patient that authorization would need to be obtained and that physical therapy would be required. ROLLING MACHINE OPERATOR notified bedside nurse of revised d/c plan and need to submit PT order.
--- NOTE | 2024-10-05 16:04 | PC.SS ---
Patient's friend at bedside, Vipul Mosqueda; .
[2024-10-05] MEDS: AMIODARONE HCL 200 MG TABLET PO ×2 (16:41→20:49)
--- NOTE | 2024-10-05 17:18 | PC.SS ---
PASSR completed. Meets Level I criteria.
--- NOTE | 2024-10-05 17:19 | PC.SS ---
SNF referral submitted. Responses pending. [facility] preferred. PT evaluation pending.
[2024-10-05] MEDS: APIXABAN 2.5 MG TABLET PO (20:49)
[2024-10-05] MEDS: MELATONIN 3 MG TABLET PO (20:50)
[2024-10-06] VITALS (12 sets, daily range): BP systolic 97–123; BP diastolic 54–66; PULSE 57–89; RESP 13–25; TEMP 36.1–36.8; O2SAT 92–96; BMI 19.6; BMI 13.0
[2024-10-06 05:35] LABS: Basophils # (Auto) 0.0 Thou/mm3 (0.0-0.2); Basophils % (Auto) 0 % (0-2.5); Eosinophils # (Auto) 0.1 Thou/mm3 (0.0-0.5); Eosinophils % (Auto) 1 % (0-10); Hematocrit 36.6 % (36.0-46.0); Hemoglobin 12.3 g/dL (12.0-16.0); Immature Granulocytes Auto 0.03 Thou/mm3 (0.00-0.00); Lymphocytes # (Auto) 2.6 Thou/mm3 (1.0-4.8); Lymphocytes % (Auto) 31 % (10-50); Mean Corpuscular HGB Conc 33.6 g/dl (31.0-37.0); Mean Corpuscular Hemoglobin 30.9 pg (25.0-35.0); Mean Corpuscular Volume 92 fL (80-100); Monocytes # (Auto) 1.3 Thou/mm3 (0.0-0.8); Monocytes % (Auto) 15 % (0-12); Neutrophils # (Auto) 4.5 Thou/mm3 (1.8-7.7); Neutrophils % (Auto) 53 % (37-80); Nucleated Red Blood Cell # 0.00 Thou/mm3 (0.00-0.00); Nucleated Red Blood Cell % 0 /100 WBC (0); Platelet Count 258 Thou/mm3 (140-440); RDW Standard Deviation 49.9 fL (36.4-46.3); Red Blood Count 3.98 Miln/mm3 (4.00-5.20); White Blood Count 8.6 Thou/mm3 (3.6-11.0)
[2024-10-06 05:56] LABS: Alanine Aminotransferase 15 U/L (10-49); Albumin, Serum 3.8 gm/dL (3.4-4.8); Albumin/Globulin Ratio 2.4 (1.2-2.2); Alkaline Phosphatase 69 U/L (46-116); Anion Gap 10 (7-16); Aspartate Amino Transferase 15 U/L (0-34); BUN/Creatinine Ratio 20 Ratio (12-20); Bilirubin,Total 0.5 mg/dL (0.3-1.2); Blood Urea Nitrogen 16 mg/dL (9-23); Calcium 9.1 mg/dL (8.3-10.6); Calcium (Corrected) 9.3 mg/dL (8.5-10.1); Carbon Dioxide 27.0 mMol/L (20.0-31.0); Chloride 100 mMol/L (98-107); Creatinine (Component) 0.8 mg/dL (0.6-1.3); Estimated Creatinine Clearance 39.2 mL/min (>60); Globulin 1.6 gm/dL (2.3-3.5); Glucose 127 mg/dL (74-106); Magnesium 2.0 mg/dL (1.6-2.6); Osmolality,Calculated 277 (275-295); Phosphorous 3.9 mg/dL (2.4-5.1); Potassium 3.9 mMol/L (3.4-5.1); Sodium 137 mMol/L (136-145); Total Protein 5.4 gm/dL (5.7-8.2); eGFR > 60 See Note
[2024-10-06] MEDS: AMIODARONE HCL 200 MG TABLET PO (08:20)
[2024-10-06] MEDS: LACTULOSE SYRUP 20 GM/30 ML UDC PO (08:20)
[2024-10-06] MEDS: DOCUSATE SOD 100 MG CAPSULE PO (08:21)
[2024-10-06] MEDS: APIXABAN 2.5 MG TABLET PO ×2 (08:21→20:40)
--- NOTE | 2024-10-06 10:05 | PD.IMCONS ---
HPI Data of Consult Requesting Physician: Chris Ingram MD Primary Care Provider: rBaxton Newby MD Consult Narrative History of present illness: Patient converted to sinus rhythm heart rate 66 Continue amiodarone p.o. Eliquis and diltiazem 30 mg 3 times daily Patient appears hemodynamically stable Denies any chest pain neck pain left arm pain cc:: cc: Chris Ingram MD Meds Home Medications and Allergies Home Medications ?Medication ?Instructions ?Recorded ?Confirmed ?Type chlorpheniramine maleate 4 mg 4 mg PO Q8H PRN Allergy Symptoms 05/28/23 05/28/23 History tablet (Allergy (chlorpheniramine)) melatonin 1 mg tablet 1 mg PO HS PRN Insomnia 05/28/23 05/28/23 History cqmueswghzwh-Pi-mzcw-minerals 18 1 tab PO QDAY 05/28/23 05/28/23 History mg-0.4 mg tablet Allergies Allergy/AdvReac Type Severity Reaction Status Date / Time adhesive tape Allergy Verified 10/03/24 18:17 codeine Allergy Verified 10/03/24 18:17 isosorbide (From Imdur) Allergy Verified 10/03/24 18:17 Penicillins Allergy Verified 10/03/24 18:17 Exam Vital Signs Temp Pulse Resp BP Pulse Ox O2 Del Method 96.9 F 66 25 H 113/66 95 Room Air 10/06/24 08:00 10/06/24 08:20 10/06/24 08:00 10/06/24 08:20 10/06/24 08:00 10/06/24 08:00 Routine HEENT Exam Head: Present normocephalic and atraumatic Eye: Present EOMI and PERRL ENT: Present mucous membranes moist Routine Neck Exam Neck: Present supple and trachea midline Routine Respiratory Exam Respiratory: Present chest non-tender, lungs clear, normal breath sounds and no resp distress Routine Cardiovascular Exam Cardiovascular: Present RRR Routine Abdominal Exam Abdominal: Present soft and normoactive bowel sounds Routine Extremities Exam Extremities: Present full ROM Routine Skin Exam Skin: Present intact, dry and warm Routine Neurological Exam Neurological: Present alert, oriented X3 and CN II-XII intact Routine Psychiatric Exam Psychiatric: Present normal affect and normal thought process Results Labs 10/06/24 04:38 10/06/24 04:38 Labs: Short CBC 10/06/24 Range/Units 04:38 WBC 8.6 (3.6-11.0) Thou/mm3 Hgb 12.3 (12.0-16.0) g/dL Hct 36.6 (36.0-46.0) % Plt Count 258 (140-440) Thou/mm3 BMP 10/06/24 04:38 Sodium 137 Potassium 3.9 Chloride 100 Carbon Dioxide 27.0 BUN 16 Creatinine 0.8 Glucose 127 H Calcium 9.1 Liver Function 10/06/24 Range/Units 04:38 Total Bilirubin 0.5 (0.3-1.2) mg/dL AST 15 (0-34) U/L ALT 15 (10-49) U/L Alkaline Phosphatase 69 (46-116) U/L Albumin 3.8 (3.4-4.8) gm/dL Assessment and Plan Assessment and plan (1) Atrial fibrillation with RVR: Status: Acute (2) Closed sacral fracture: Status: Acute (3) Constipation: Status: Acute Additional Assessment & Plan Additional Plan: Back in sinus rhythm continue current medical management amiodarone Eliquis to continue Stable hemodynamics
--- NOTE | 2024-10-06 12:22 | PC.PT ---
Patient is safe to ambulate to the bathroom with 1 staff and a FWW. RN made aware.
--- NOTE | 2024-10-06 13:56 | PC.SS ---
Addendum entered by EMMA Landis 10/06/24 14:28: Rounding note: patient medically cleared for d/c. Insurance authorization is pending to [facility]- SNF. Original Note: SS follow up: provided choices for SNF to the patient. She selected [facility]. Dina is aware and will initiate insurance authorization today. PT note sent via [employer].
--- NOTE | 2024-10-06 15:19 | PD.RESPRO ---
Documentation for date of: 10/06/24 Subjective Subjective Interval history: Patient was seen and examined at bedside. Overnight blood pressure intact. Was on the lower end, diltiazem was held, cardiology was contacted, evaluated the patient and recommended to switch amiodarone 200 twice daily to amiodarone 200 daily, will stop diltiazem as patient cannot is in sinus rhythm. PT evaluated the patient, recommended SNF placement. Pending insurance authorization, patient is interested to going to coordinate placement. Will follow-up with the social workers. Exam Vital Signs Temp Pulse Resp BP Pulse Ox O2 Del Method 98.0 F 61 16 113/56 L 94 L Room Air 10/06/24 12:00 10/06/24 13:11 10/06/24 13:11 10/06/24 12:00 10/06/24 13:11 10/06/24 12:00 Narrative Exam GENERAL: no acute distress, AAO x3, elderly female, comfortably laying in bed HEENT: Head AT/ NC. Mucous membranes moist. PERRL. Left ear hearing device NECK: Supple, no lymphadenopathy, no carotid bruits. CARDIOVASCULAR: RRR. Normal S1/S2, No m/r/g. No pitting edema of bilateral LEs. RESPIRATORY: CTAB. No wheezing, rhonchi, crackles. GASTROINTESTINAL: Abdomen soft, non tender no palpable masses. Bowel sounds present in all 4 quadrants. MUSCULOSKELETAL:? No cyanosis or edema, no visible joint swelling. NEUROLOGICAL: CN II-XII grossly intact. No focal deficits. Sensation intact, symmetric. PSYCHIATRIC: Awake and alert, not agitated, normal mood and affect. INTEGUMENTARY: No obvious rashes, no jaundice, normal turgor. Objective Labs 10/07/24 05:14 10/07/24 05:14 Labs: Laboratory Results - last 24 hr 10/06/24 04:38 WBC 8.6 RBC 3.98 L Hgb 12.3 Hct 36.6 MCV 92 MCH 30.9 MCHC 33.6 RDW Std Deviation 49.9 H Plt Count 258 Neut % (Auto) 53 Lymph % (Auto) 31 [place] % (Auto) 15 H Eos % (Auto) 1 Baso % (Auto) 0 Neut # (Auto) 4.5 Lymph # (Auto) 2.6 [place] # (Auto) 1.3 H Eos # (Auto) 0.1 Baso # (Auto) 0.0 Immature Gran # (Auto) 0.03 H Absolute Nucleated RBC 0.00 Immature Gran % 0 Nucleated RBC % 0 Sodium 137 Potassium 3.9 Chloride 100 Carbon Dioxide 27.0 Anion Gap 10 BUN 16 Creatinine 0.8 Estim Creat Clear Calc 39.2 L eGFR > 60 BUN/Creatinine Ratio 20 Glucose 127 H Calculated Osmolality 277 Calcium 9.1 Corrected Calcium 9.3 Phosphorus 3.9 Magnesium 2.0 Total Bilirubin 0.5 AST 15 ALT 15 Alkaline Phosphatase 69 Total Protein 5.4 L Albumin 3.8 Globulin 1.6 L Albumin/Globulin Ratio 2.4 H Quality Measures Quality Measures none Advance care planning discussed with:: patient Assessment & Plan Assessment Current Active Medications: Generic Name Dose Route Start Last Admin Trade Name Freq PRN Reason Stop Dose Admin Acetaminophen 650 mg 10/04/24 02:57 Acetaminophen 325 Mg Tablet PO 11/03/24 02:56 Q6H PRN Fever >100.5 Acetaminophen 1,000 mg 10/04/24 03:07 Acetaminophen 500 Mg Tablet PO 11/03/24 03:06 Q6H PRN PAIN SCALE 1-3 (mild Amiodarone HCl 200 mg 10/05/24 17:00 10/06/24 08:20 Amiodarone Hcl 200 Mg Tablet PO 11/04/24 16:59 200 mg BID [place] Administration Apixaban 2.5 mg 10/05/24 21:00 10/06/24 08:21 Apixaban 2.5 Mg Tablet PO 11/04/24 20:59 2.5 mg BID [place] Administration Docusate Sodium 100 mg 10/04/24 09:00 10/06/24 08:21 Docusate Sod 100 Mg Capsule PO 11/03/24 08:59 100 mg QDAY [place] Administration Protocol Lactulose 20 gm 10/05/24 10:30 10/06/24 08:20 Lactulose Syrup 20 Gm/30 Ml Udc PO 11/04/24 10:29 20 gm DAILY [place] Administration Protocol Magnesium Hydroxide 30 ml 10/04/24 02:57 Milk Of Magnesia Susp 30 Ml Udc PO 11/03/24 02:56 QDAY PRN CONSTIPATION Protocol Melatonin 3 mg 10/04/24 21:00 10/05/24 20:50 Melatonin 3 Mg Tablet PO 11/03/24 20:59 3 mg HS [place] Administration Ondansetron HCl 4 mg 06/25/25 02:57 Ondansetron Inj 2 Mg/Ml Inj 2 Ml IVP 11/03/24 02:56 Q6H PRN NAUSEA OR VOMITING Protocol Plan Ysabel Campbell is 89-year-old female with past medical history cataracts, gastric ulcer, carpal tunnel syndrome who presented to the ED from [facility] with chief complaint of constipation. For the past week has not been able to have a bowel movement. While in the ED workup showed A-fib with RVR rate 140?150. Cardiology Dr. Edwards was consulted and patient mated for management of constipation and new onset A-fib with RVR. #New onset atrial fibrillation with RVR #Paroxismal Afib Presented with new-onset atrial fibrillation with rate in the 140s EKG showed: Atrial fibrillation with RVR, post diltiazem 50 mg x 1. She was started on p.o. metoprolol succinate 25 mg daily. Currently denying any shortness of breath, chest pain, palpitations. Possible cause of onset of this atrial fibrillation may be due to stress from the constipation, autonomic dysfunction. CHADSVasc= 3 indicating 3.2% risk of stroke per year HAS-BLED= 0 TSH normal (1.92), lipid panel normal Echo completed 10/04/24 showed EF 55%, small PFO. - Cardiology Dr. Edwards was consulted, appreciate recommendations-,completed Amiodoron drip and transitioned to PO amiodoron 200 qday - on Elequise BID, will be continued ? Keep K> 4, Mg> 2 - patient back to sinus rhythm, plan is to DC with PO amio and Elequise , #Constipation-resolved Ongoing for the past 1 week, has used minimal [id number]-[id number] medications. Ended up trying to manually disimpact herself did not appear to be successful. Presented to ED for management of constipation. Since starting docusate, she has had 2 BM. ?docusate 100mg daily -lacutlose 20mg daily -monitor BM Health Maintenance: Disposition: Telemetry, A-fib with RVR, PT recs -> SNF placement, pending insurance Authorization Feeding: Low-sodium diet DVT proph:Elquis BID CODE STATUS: DNR Patient care was discussed with attending physician Dr. Nataly Cárdenas MD PGY-2 I have carefully reviewed this document. Due to imperfections in the voice software, there could be grammatical errors including phonetic/typographic errors. This in no way compromises the medical care the patient is receiving Attending Provider Attestation/Addendum I have examined the patient, reviewed labs and imaging findings, discussed the case with the resident(s), and reviewed entered orders. I agree with the plan of care as outlined in this note, with these additional summaries/recommendations: Patient seen at bedside. She currently denies shortness of breath, palpitations or chest pain. Patient was diagnosed with new onset atrial fibrillation with rapid ventricular response. S/P Amio drip and transitioned to oral amiodarone 200mg PO BID. Start oral Cardizem for better rate control and monitor hemodynamics closely. Echocardiogram howed EF 55%, Severe LAE, and small PFO. Patient found to have elevated [id number] score and started on therapeutic Lovenox and transitioned to NOAC. Risks and benefits of anticoagulation explained to patient and daughter and both in agreement with anticoagulation at this time. Continue aggressive bowel regimen or severe constipation. Patient seen by physical therapy who recommends SNF placement. Patient updated on the plan and in agreement. All questions answered to satisfaction. Please see residents note for additional details and management. Dr. Nataly MD
[2024-10-06] MEDS: MELATONIN 3 MG TABLET PO (20:39)
[2024-10-07] VITALS (12 sets, daily range): BP systolic 104–114; BP diastolic 50–90; PULSE 56–122; RESP 16–98; TEMP 36.3–36.7; O2SAT 93–99; BMI 20.1
[2024-10-07 06:19] LABS: Basophils # (Auto) 0.0 Thou/mm3 (0.0-0.2); Basophils % (Auto) 0 % (0-2.5); Eosinophils # (Auto) 0.1 Thou/mm3 (0.0-0.5); Eosinophils % (Auto) 1 % (0-10); Hematocrit 34.2 % (36.0-46.0); Hemoglobin 11.7 g/dL (12.0-16.0); Immature Granulocytes Auto 0.03 Thou/mm3 (0.00-0.00); Lymphocytes # (Auto) 2.5 Thou/mm3 (1.0-4.8); Lymphocytes % (Auto) 30 % (10-50); Mean Corpuscular HGB Conc 34.2 g/dl (31.0-37.0); Mean Corpuscular Hemoglobin 31.0 pg (25.0-35.0); Mean Corpuscular Volume 91 fL (80-100); Monocytes # (Auto) 1.3 Thou/mm3 (0.0-0.8); Monocytes % (Auto) 16 % (0-12); Neutrophils # (Auto) 4.3 Thou/mm3 (1.8-7.7); Neutrophils % (Auto) 52 % (37-80); Nucleated Red Blood Cell # 0.00 Thou/mm3 (0.00-0.00); Nucleated Red Blood Cell % 0 /100 WBC (0); Platelet Count 249 Thou/mm3 (140-440); RDW Standard Deviation 49.1 fL (36.4-46.3); Red Blood Count 3.77 Miln/mm3 (4.00-5.20); White Blood Count 8.2 Thou/mm3 (3.6-11.0)
[2024-10-07 06:49] LABS: Alanine Aminotransferase 15 U/L (10-49); Albumin, Serum 3.7 gm/dL (3.4-4.8); Albumin/Globulin Ratio 1.9 (1.2-2.2); Alkaline Phosphatase 73 U/L (46-116); Anion Gap 7 (7-16); Aspartate Amino Transferase 17 U/L (0-34); BUN/Creatinine Ratio 20 Ratio (12-20); Bilirubin,Total 0.8 mg/dL (0.3-1.2); Blood Urea Nitrogen 16 mg/dL (9-23); Calcium 8.8 mg/dL (8.3-10.6); Calcium (Corrected) 9.0 mg/dL (8.5-10.1); Carbon Dioxide 30.0 mMol/L (20.0-31.0); Chloride 104 mMol/L (98-107); Creatinine (Component) 0.8 mg/dL (0.6-1.3); Estimated Creatinine Clearance 42.6 mL/min (>60); Globulin 2.0 gm/dL (2.3-3.5); Glucose 111 mg/dL (74-106); Osmolality,Calculated 283 (275-295); Phosphorous 3.7 mg/dL (2.4-5.1); Potassium 3.9 mMol/L (3.4-5.1); Sodium 141 mMol/L (136-145); Total Protein 5.7 gm/dL (5.7-8.2); eGFR > 60 See Note
[2024-10-07] MEDS: APIXABAN 2.5 MG TABLET PO ×2 (08:54→20:31)
[2024-10-07] MEDS: DOCUSATE SOD 100 MG CAPSULE PO (08:54)
[2024-10-07] MEDS: AMIODARONE HCL 200 MG TABLET PO (08:54)
[2024-10-07] MEDS: LACTULOSE SYRUP 20 GM/30 ML UDC PO (08:55)
--- NOTE | 2024-10-07 09:33 | PC.SS ---
Addendum entered by Kiana Mary 10/07/24 15:47: Dina [phone] from [facility] stated that if pt has a bowel movement later on this evening, she said to go ahead and arrange transport at any time and staff will accept the pt. Addendum entered by Kiana Mary 10/07/24 15:44: ASW cancelled transportation today due to the update from the rounding meeting. At rounding meeting, ASW as informed that pt has not had a bowel movement and was not truly medically cleared. Therefore, pts d/c was cancelled. Residence will inform SS if pt had a successful bowel movement tomorrow so pt can d/c to [facility]. ASW contacted Dina from [facility] Addendum entered by Kiana Mary 10/07/24 12:15: ASW ARRANGED TRANSPORTATION AND PT WILL BE PICKED UP AT 1400 AND TRANSPORTED TO [facility]. RN IS AWARE. Addendum entered by Kiana Mary 10/07/24 11:14: ASW SPOKE WITH DINA FROM [facility] AND THE AUTH WAS ACCEPTED. ASW WILL ARRANGE TRANSPORTATION Original Note: Pt is medically cleared and waiting on SNF placement to [facility]. [employer] contacted [facility] to inquire any updates on the AUTH; however, as of this writing Dina has not returned the call. As of now, pt remains admitted and is waiting on AUTH for SNF placement.
--- NOTE | 2024-10-07 11:44 | ESPR_ITS ---
Documentation for date of: 10/07/24 Subjective Subjective Interval history: Patient is back in sinus rhythm Currently continuing on amiodarone 200 daily Eliquis 2.5 mg twice a day Patient appears hemodynamically stable Exam Vital Signs Temp Pulse Resp BP Pulse Ox O2 Del Method 98.0 F 68 17 110/50 L 93 L Room Air 10/07/24 08:00 10/07/24 08:54 10/07/24 08:15 10/07/24 08:54 10/07/24 08:00 10/07/24 08:00 Routine HEENT Exam Head: Present normocephalic and atraumatic Eye: Present EOMI and PERRL ENT: Present mucous membranes moist Routine Neck Exam Neck: Present supple and trachea midline Routine Respiratory Exam Respiratory: Present chest non-tender, lungs clear, normal breath sounds and no resp distress Routine Cardiovascular Exam Cardiovascular: Present RRR Routine Abdominal Exam Abdominal: Present soft and normoactive bowel sounds Routine Extremities Exam Extremities: Present full ROM Routine Skin Exam Skin: Present intact, dry and warm Routine Neurological Exam Neurological: Present alert, oriented X3 and CN II-XII intact Routine Psychiatric Exam Psychiatric: Present normal affect and normal thought process Objective Labs 10/07/24 05:14 10/07/24 05:14 Labs: Laboratory Results - last 24 hr 10/07/24 05:14 WBC 8.2 RBC 3.77 L Hgb 11.7 L Hct 34.2 L MCV 91 MCH 31.0 MCHC 34.2 RDW Std Deviation 49.1 H Plt Count 249 Neut % (Auto) 52 Lymph % (Auto) 30 [place] % (Auto) 16 H Eos % (Auto) 1 Baso % (Auto) 0 Neut # (Auto) 4.3 Lymph # (Auto) 2.5 [place] # (Auto) 1.3 H Eos # (Auto) 0.1 Baso # (Auto) 0.0 Immature Gran # (Auto) 0.03 H Absolute Nucleated RBC 0.00 Immature Gran % 0 Nucleated RBC % 0 Sodium 141 Potassium 3.9 Chloride 104 Carbon Dioxide 30.0 Anion Gap 7 BUN 16 Creatinine 0.8 Estim Creat Clear Calc 42.6 L eGFR > 60 BUN/Creatinine Ratio 20 Glucose 111 H Calculated Osmolality 283 Calcium 8.8 Corrected Calcium 9.0 Phosphorus 3.7 Total Bilirubin 0.8 AST 17 ALT 15 Alkaline Phosphatase 73 Total Protein 5.7 Albumin 3.7 Globulin 2.0 L Albumin/Globulin Ratio 1.9 Assessment & Plan A&P Narrative Back in sinus rhythm continue current medical management amiodarone Eliquis to continue Stable hemodynamics Time Spent With Patient Time: Total time spent is greater than 50% in coordination of care (as documented) at patient's floor/unit and/or counseling patient:
--- NOTE | 2024-10-07 12:18 | PD.HHDS ---
Planned Discharge Date 10/07/24 DS: Providers Provider Date of admission: 10/04/24 02:57 Primary care physician: Braxton Newby MD Admitting Provider: Joe Troncoso MD Attending Provider on Admission: Chris Ingram MD Consults: 10/04/24 10:54 Consult to Cardiology Routine Comment: new onset afib rvr Consulting Provider: Neel Edwards 10/05/24 14:26 Referral Physical Therapy Routine Comment: Physician Instructions: Instructions: Lives in senior resident apts. chief complaint of constipation Attending Provider on DC: Chris Ingram MD Discharging Provider: Chris Ingram MD Hospital Course - Hospitalist Time Spent with Patient Time attestation: Total time spent providing and/or coordinating discharge services: Discharge Results Labs Diagrams: 10/07/24 05:14 10/07/24 05:14 Labs: Short CBC 10/07/24 Range/Units 05:14 WBC 8.2 (3.6-11.0) Thou/mm3 Hgb 11.7 L (12.0-16.0) g/dL Hct 34.2 L (36.0-46.0) % Plt Count 249 (140-440) Thou/mm3 BMP 10/07/24 05:14 Sodium 141 Potassium 3.9 Chloride 104 Carbon Dioxide 30.0 BUN 16 Creatinine 0.8 Glucose 111 H Calcium 8.8 Liver Function 10/07/24 Range/Units 05:14 Total Bilirubin 0.8 (0.3-1.2) mg/dL AST 17 (0-34) U/L ALT 15 (10-49) U/L Alkaline Phosphatase 73 (46-116) U/L Albumin 3.7 (3.4-4.8) gm/dL Exam Vital Signs Temp Pulse Resp BP Pulse Ox O2 Del Method 98.0 F 68 17 110/50 L 93 L Room Air 10/07/24 08:00 10/07/24 08:54 10/07/24 08:15 10/07/24 08:54 10/07/24 08:00 10/07/24 08:00 Discharge Plan Prescriptions/Referrals Prescriptions/Med Rec: New sennosides [Laxative (sennosides)] 8.6 mg tablet 8.6 mg PO QDAY PRN (Reason: constipation) 14 Days Qty: 14 0RF amiodarone 200 mg tablet 200 mg PO QDAY 30 Days Qty: 30 0RF Continued chlorpheniramine maleate [Allergy (chlorpheniramine)] 4 mg Tablet 4 mg PO Q8H PRN (Reason: Allergy Symptoms) Rx Instructions: do not exceed 2 doses per 24 hrs melatonin 1 mg Tablet 1 mg PO HS PRN (Reason: Insomnia) [id number]-Wp-ilce-minerals 18-0.4 mg Tablet 1 tab PO QDAY Discontinued naproxen sodium [Aleve] 220 mg Capsule 220 mg PO BID PRN (Reason: Pain, Mild) Referrals: Braxton Newby MD [Primary Care Provider] - Neel Edwards MD [Physician] - Patient/Caregiver Discharge Instructions Other Discharge Activity Instructions:: Start taking amiodarone 200 mg daily Close monitor blood pressure, if blood pressure drops, you can hold 1 dose of the diltiazem and follow-up with PCP and/or cardiology Start taking Eliquis twice daily, you started on anticoagulation, please watch signs of bleeding, if you notice any blood in the stool or in the urine, frequent bruises, please follow-up with primary care physician. Fall precaution is strongly advised. You are also prescribed senna which is a laxative as needed for constipation. Follow-up with PCP in 1 to 2 weeks after discharge You were referred to cardiology Dr Edwards, please follow-up outpatient with cardiology for further recommendation and management. Return to ED anytime symptoms worsens. Education Materials: AFL/Afib Print Language: Monegasque Discharge Order Discharge Orders: Discharge (Routine); Ordered 10/07/24 Ordered By: Chris Ingram
--- NOTE | 2024-10-07 13:30 | PC.NURSE ---
Pt scheduled for discharged @1400 to [facility], however upon assisting pt to bathroom on BSC pt was crying and straining, stating she can feel the BM at her rectum and unable to push. Pt was assisted back to bed and upon exam it felt like a soft ball size stool at the rectum. Pt was crying and I was unable to dis-impact manually. Dr. Ingram notified and examined patient at the bedside. Order for soap suds enema was ordered and carried out. During administration of enema, pt went back into A-fib/RVR, however a large BM was extracted and remaining residual of enema water was clear.
--- NOTE | 2024-10-07 14:00 | PC.NURSE ---
Dr. Madison notified of patient results of enema and pt back in A-Fib/RVR (HR 105-117bpm); HOLDING on discharge.
--- NOTE | 2024-10-07 14:19 | PD.HHPROG ---
Documentation for date of: 10/07/24 Subjective - Hospitalist Subjective Interval history: Patient seen at bedside. No acute overnight events. Patient was planned for discharge today although she endorsed significant constipation. On to direct examination patient appears to still have a significant stool burden with only minimal improvement with manual disimpaction. We will start aggressive bowel regimen today with enema and continued laxatives. Discussed that patient will remain hospitalized today and she is in agreement. Heart rate remains well-controlled. She reports she is hard of hearing but has no other acute complaints today. She is in agreement with group home facility when medically cleared for discharge. I spoke with patient's daughter Heather and updated her at patient's request and she is also in agreement with the plan. Patient denies headache, chest pain, abdominal pain, urinary symptoms, fever/chills, or shortness of breath. She continues to work with physical therapy. Review of Systems Review of Systems Systems Reviewed: All systems reviewed, normal except as documented Exam Vital Signs Temp Pulse Resp BP Pulse Ox O2 Del Method 97.9 F 64 16 104/52 L 94 L Room Air 10/07/24 12:00 10/07/24 12:00 10/07/24 12:00 10/07/24 12:00 10/07/24 12:10/07/24 12:00 Narrative GENERAL: no acute distress, AAO x3, elderly female, comfortably laying in bed HEENT: Head AT/ NC. Mucous membranes moist. PERRL. Left ear hearing device NECK: Supple, no lymphadenopathy, no carotid bruits. CARDIOVASCULAR: RRR. Normal S1/S2, No m/r/g. No pitting edema of bilateral LEs. RESPIRATORY: CTAB. No wheezing, rhonchi, crackles. GASTROINTESTINAL: Abdomen soft, non tender no palpable masses. Bowel sounds present in all 4 quadrants. MUSCULOSKELETAL: No cyanosis or edema, no visible joint swelling. NEUROLOGICAL: CN II-XII grossly intact. No focal deficits. Sensation intact, symmetric. PSYCHIATRIC: Awake and alert, not agitated, normal mood and affect. INTEGUMENTARY: No obvious rashes, no jaundice, normal turgor. Objective - Hospitalist Labs Diagram: 10/07/24 05:14 10/07/24 05:14 Labs: Laboratory Results - last 24 hr 10/07/24 05:14 WBC 8.2 RBC 3.77 L Hgb 11.7 L Hct 34.2 L MCV 91 MCH 31.0 MCHC 34.2 RDW Std Deviation 49.1 H Plt Count 249 Neut % (Auto) 52 Lymph % (Auto) 30 [place] % (Auto) 16 H Eos % (Auto) 1 Baso % (Auto) 0 Neut # (Auto) 4.3 Lymph # (Auto) 2.5 [place] # (Auto) 1.3 H Eos # (Auto) 0.1 Baso # (Auto) 0.0 Immature Gran # (Auto) 0.03 H Absolute Nucleated RBC 0.00 Immature Gran % 0 Nucleated RBC % 0 Sodium 141 Potassium 3.9 Chloride 104 Carbon Dioxide 30.0 Anion Gap 7 BUN 16 Creatinine 0.8 Estim Creat Clear Calc 42.6 L eGFR > 60 BUN/Creatinine Ratio 20 Glucose 111 H Calculated Osmolality 283 Calcium 8.8 Corrected Calcium 9.0 Phosphorus 3.7 Total Bilirubin 0.8 AST 17 ALT 15 Alkaline Phosphatase 73 Total Protein 5.7 Albumin 3.7 Globulin 2.0 L Albumin/Globulin Ratio 1.9 Assessment & Plan Plan: Ysabel Campbell is 89-year-old female with past medical history cataracts, gastric ulcer, carpal tunnel syndrome who [facility] with chief complaint of constipation. For the past week has not been able to have a bowel movement. While in the ED workup showed A-fib with RVR rate 140?150. Cardiology Dr. Edwards was consulted and patient mated for management of constipation and new onset A-fib with RVR. #Constipation-Severe Ongoing for the past 1 week, has used minimal vfrp-fen-tqqbjqw medications. Ended up trying to manually disimpact herself did not appear to be successful. Presented to ED for management of constipation. Since starting docusate, she has had 2 BM. ?docusate 100mg daily -lacutlose 20mg daily -Plan: Manual disimpaction was attempted today without significant improvement. Order soapsuds enema and continue oral laxatives. Given that patient developed new onset atrial fibrillation most likely secondary to severe constipation, she will remain hospitalized pending further improvement in stool burden. If unresolving we may have to call consult gastroenterology. #New onset atrial fibrillation #Paroxismal Afib Presented with new-onset atrial fibrillation with rate in the 140s EKG showed: Atrial fibrillation with RVR, post diltiazem 50 mg x 1. She was started on p.o. metoprolol succinate 25 mg daily. Currently denying any shortness of breath, chest pain, palpitations. Possible cause of onset of this atrial fibrillation may be due to stress from the constipation, autonomic dysfunction. CHADSVasc= 3 indicating 3.2% risk of stroke per year HAS-BLED= 0 TSH normal (1.92), lipid panel normal Echo completed 10/04/24 showed EF 55%, small PFO. - Cardiology Dr. Edwards was consulted, appreciate recommendations-,completed Amiodarone drip and transitioned to PO Amiodarone 200 qday - on Elequise BID, will be continued ? Keep K> 4, Mg> 2 - patient back to sinus rhythm, plan is to DC with PO amio and Eliquis Dr. Nataly MD Time Spent with Patient Time: Total time spent is greater than 50% in coordination of care (as documented) at patient's floor/unit and/or counseling patient: Time with patient: Greater than 35 minutes Reason for Continued Stay Reason for continued stay: further monitoring and other Quality Measures Quality Measures none Advance care planning discussed with:: patient and child
[2024-10-07] MEDS: ACETAMINOPHEN 500 MG TABLET 1000 MG PO (17:57)
--- NOTE | 2024-10-07 18:18 | PC.NURSE ---
Spoke with Db about pt maintaining a HR of 130-140s for quite awhile (over 30, while eating dinner and after). Awaiting new order
[2024-10-07] MEDS: MELATONIN 3 MG TABLET PO (20:31)
[2024-10-08] VITALS (10 sets, daily range): BP systolic 97–113; BP diastolic 57–79; PULSE 89–131; RESP 13–26; TEMP 36.3–36.7; O2SAT 94–99
[2024-10-08 06:09] LABS: Basophils # (Auto) 0.0 Thou/mm3 (0.0-0.2); Basophils % (Auto) 1 % (0-2.5); Eosinophils # (Auto) 0.1 Thou/mm3 (0.0-0.5); Eosinophils % (Auto) 2 % (0-10); Hematocrit 38.2 % (36.0-46.0); Hemoglobin 12.9 g/dL (12.0-16.0); Immature Granulocytes Auto 0.02 Thou/mm3 (0.00-0.00); Lymphocytes # (Auto) 1.8 Thou/mm3 (1.0-4.8); Lymphocytes % (Auto) 22 % (10-50); Mean Corpuscular HGB Conc 33.8 g/dl (31.0-37.0); Mean Corpuscular Hemoglobin 30.5 pg (25.0-35.0); Mean Corpuscular Volume 90 fL (80-100); Monocytes # (Auto) 1.2 Thou/mm3 (0.0-0.8); Monocytes % (Auto) 14 % (0-12); Neutrophils # (Auto) 5.3 Thou/mm3 (1.8-7.7); Neutrophils % (Auto) 62 % (37-80); Nucleated Red Blood Cell # 0.02 Thou/mm3 (0.00-0.00); Nucleated Red Blood Cell % 0 /100 WBC (0); Platelet Count 289 Thou/mm3 (140-440); RDW Standard Deviation 48.0 fL (36.4-46.3); Red Blood Count 4.23 Miln/mm3 (4.00-5.20); White Blood Count 8.5 Thou/mm3 (3.6-11.0)
[2024-10-08 06:51] LABS: Alanine Aminotransferase 14 U/L (10-49); Albumin, Serum 3.6 gm/dL (3.4-4.8); Albumin/Globulin Ratio 1.8 (1.2-2.2); Alkaline Phosphatase 79 U/L (46-116); Anion Gap 7 (7-16); Aspartate Amino Transferase 15 U/L (0-34); BUN/Creatinine Ratio 16 Ratio (12-20); Bilirubin,Total 1.1 mg/dL (0.3-1.2); Blood Urea Nitrogen 13 mg/dL (9-23); Calcium 8.9 mg/dL (8.3-10.6); Calcium (Corrected) 9.2 mg/dL (8.5-10.1); Carbon Dioxide 28.6 mMol/L (20.0-31.0); Chloride 106 mMol/L (98-107); Creatinine (Component) 0.8 mg/dL (0.6-1.3); Estimated Creatinine Clearance 42.6 mL/min (>60); Globulin 2.0 gm/dL (2.3-3.5); Glucose 117 mg/dL (74-106); Osmolality,Calculated 284 (275-295); Potassium 4.2 mMol/L (3.4-5.1); Sodium 142 mMol/L (136-145); Total Protein 5.6 gm/dL (5.7-8.2); eGFR > 60 See Note
--- NOTE | 2024-10-08 08:32 | PD.RESDS ---
Planned Discharge Date 10/08/24 DS: Providers Provider Date of admission: 10/04/24 02:57 Primary care physician: Braxton Newby MD Admitting Provider: Joe Troncoso MD Attending Provider on Admission: Chris Ingram MD Consults: 10/04/24 10:54 Consult to Cardiology Routine Comment: new onset afib rvr Consulting Provider: Neel Edwards 10/05/24 14:26 Referral Physical Therapy Routine Comment: Physician Instructions: Instructions: Lives in senior resident apts. chief complaint of constipation Attending Provider on DC: Cynthia Cárdenas MD Discharging Provider: Cynthia Cárdenas MD Hospital Course Hospital Course Hospital course: Patient is back in sinus rhythm Currently continuing on amiodarone 200 daily Eliquis 2.5 mg twice a day Patient appears hemodynamically stable Time Spent with Patient Time attestation: Total time spent providing and/or coordinating discharge services: Exam Vital Signs Temp Pulse Resp BP Pulse Ox O2 Del Method 97.4 F 105 H 17 104/69 98 Room Air 10/08/24 04:00 10/08/24 04:00 10/08/24 04:00 10/08/24 04:00 10/08/24 04:00 10/08/24 04:00 Discharge Plan Plan Patient Disposition: Xfer [facility]illed [facility] Fac (SNF) Patient condition on transfer: Stable Prescriptions/Referrals Prescriptions/Med Rec: New sennosides [Laxative (sennosides)] 8.6 mg tablet 8.6 mg PO QDAY PRN (Reason: constipation) 14 Days Qty: 14 0RF amiodarone 200 mg Tablet 200 mg PO QDAY Qty: 30 0RF apixaban 2.5 mg tablet 2.5 mg PO BID Qty: 30 0RF lactulose 10 gram/15 mL solution 15 ml PO QDAY MDD 3 PRN (Reason: constipation) Qty: 1200 0RF Rx Instructions: take as needed for constipation, Titrate if bowel movement is more than 2-3 daily Continued chlorpheniramine maleate [Allergy (chlorpheniramine)] 4 mg Tablet 4 mg PO Q8H PRN (Reason: Allergy Symptoms) Rx Instructions: do not exceed 2 doses per 24 hrs melatonin 1 mg Tablet 1 mg PO HS PRN (Reason: Insomnia) ivbghbiwvmye-Zz-dbha-minerals 18-0.4 mg Tablet 1 tab PO QDAY Discontinued naproxen sodium [Aleve] 220 mg Capsule 220 mg PO BID PRN (Reason: Pain, Mild) Referrals: Braxton Newby MD [Primary Care Provider] - Neel Edwards MD [Physician] - Patient/Caregiver Discharge Instructions Other Discharge Activity Instructions:: Start taking amiodarone 200 mg once a day and Eliquis 2.5 mg twice a day as management for your new onset atrial fibrillation. Eliquis is an anticoagulant and cause side effects of bleeding. Please watch for signs of bleeding. If you notice any blood in the stool, urine, or frequent bruises, please follow-up with primary care physician. Fall precaution is strongly advised. You are also prescribed senna which is a laxative as needed for constipation. Follow-up with PCP in 1 to 2 weeks after discharge. You were referred to cardiology Dr Edwards, please follow-up outpatient with cardiology for further recommendation and management. Return to ED anytime symptoms worsens. Education Materials: Eliquis Oral Tablet 2.5 mg, AFL/Afib, Discharge Instructions for ..., ED Constipation (Adult) Print Language: Slovenian Stand Alone Forms: Marily Award Info., Patient Portal Info Letter
[2024-10-08] MEDS: AMIODARONE HCL 200 MG TABLET PO ×2 (09:01→21:07)
[2024-10-08] MEDS: DOCUSATE SOD 100 MG CAPSULE PO (09:01)
[2024-10-08] MEDS: LACTULOSE SYRUP 20 GM/30 ML UDC PO (09:02)
[2024-10-08] MEDS: APIXABAN 2.5 MG TABLET PO ×2 (09:02→21:08)
--- NOTE | 2024-10-08 09:26 | PC.SS ---
Per RN Juan F [phone], pt had bowel movement last night. Per Dr. Madison, pt is in A-Fib again and is tachy but will consult to see if pt needs to stay longer due increases heart rate. Dr. Ivey will call back with a decision. Possible cancelation of d/c today or later d/c today if pt needs to stay longer for observation. SS to f/u with Dr. Ivey.
[2024-10-08] MEDS: SODIUM CHLORIDE 0.9% 250 ML 250 ML 999 ML IV (10:19)
[2024-10-08] MEDS: METOPROLOL TARTRATE INJ 1 MG/ML AMP 5 ML 2 MG IVP (10:47)
--- NOTE | 2024-10-08 10:53 | ESPR_ITS ---
Documentation for date of: 10/08/24 Subjective Subjective Interval history: Patient was seen and examined at bedside, Labs are stable. Overnight patient developed Afib with RVR with heart rate of 130s patient was evaluated at bedside, appears to be dehydrated, blood pressure on the lower side, patient was given a small bolus to 50 cc, which helped with the BP, 2 mg of IV metoprolol push was given. Patient is on and off of A-fib, cardiology was contacted and recommended to start diltiazem 3 times daily, will close monitor hemodynamics. Patient was encouraged to increase oral fluid intake and continue working with physical therapist. We will hold off on discharge, will evaluate the patient tomorrow. Exam Vital Signs Temp Pulse Resp BP Pulse Ox O2 Del Method 97.7 F 128 H 26 H 113/71 96 Room Air 10/08/24 08:00 10/08/24 10:47 10/08/24 08:00 10/08/24 10:47 10/08/24 08:00 10/08/24 08:00 Narrative Exam GENERAL: no acute distress, AAO x3, elderly female, comfortably laying in bed HEENT: Head AT/ NC. Mucous membranes moist. PERRL. Left ear hearing device NECK: Supple, no lymphadenopathy, no carotid bruits. CARDIOVASCULAR: RRR. Normal S1/S2, No m/r/g. No pitting edema of bilateral LEs. RESPIRATORY: CTAB. No wheezing, rhonchi, crackles. GASTROINTESTINAL: Abdomen soft, non tender no palpable masses. Bowel sounds present in all 4 quadrants. MUSCULOSKELETAL:? No cyanosis or edema, no visible joint swelling. NEUROLOGICAL: CN II-XII grossly intact. No focal deficits. Sensation intact, symmetric. PSYCHIATRIC: Awake and alert, not agitated, normal mood and affect. INTEGUMENTARY: No obvious rashes, no jaundice, normal turgor. Objective Labs 10/09/24 05:33 10/09/24 05:33 Labs: Laboratory Results - last 24 hr 10/08/24 05:31 WBC 8.5 RBC 4.23 Hgb 12.9 Hct 38.2 MCV 90 MCH 30.5 MCHC 33.8 RDW Std Deviation 48.0 H Plt Count 289 D Neut % (Auto) 62 Lymph % (Auto) 22 [place] % (Auto) 14 H Eos % (Auto) 2 Baso % (Auto) 1 Neut # (Auto) 5.3 Lymph # (Auto) 1.8 [place] # (Auto) 1.2 H Eos # (Auto) 0.1 Baso # (Auto) 0.0 Immature Gran # (Auto) 0.02 H Absolute Nucleated RBC 0.02 H Immature Gran % 0 Nucleated RBC % 0 Sodium 142 Potassium 4.2 Chloride 106 Carbon Dioxide 28.6 Anion Gap 7 BUN 13 Creatinine 0.8 Estim Creat Clear Calc 42.6 L eGFR > 60 BUN/Creatinine Ratio 16 Glucose 117 H Calculated Osmolality 284 Calcium 8.9 Corrected Calcium 9.2 Total Bilirubin 1.1 AST 15 ALT 14 Alkaline Phosphatase 79 Total Protein 5.6 L Albumin 3.6 Globulin 2.0 L Albumin/Globulin Ratio 1.8 Quality Measures Quality Measures none Advance care planning discussed with:: patient Assessment & Plan Assessment Current Active Medications: Generic Name Dose Route Start Last Admin Trade Name Freq PRN Reason Stop Dose Admin Acetaminophen 650 mg 10/04/24 02:57 Acetaminophen 325 Mg Tablet PO 11/03/24 02:56 Q6H PRN Fever >100.5 Acetaminophen 1,000 mg 10/04/24 03:07 10/07/24 17:57 Acetaminophen 500 Mg Tablet PO 11/03/24 03:06 1,000 mg Q6H PRN Administration PAIN SCALE 1-3 (mild Amiodarone HCl 200 mg 10/08/24 21:00 Amiodarone Hcl 200 Mg Tablet PO 11/07/24 20:59 BID [place] Apixaban 2.5 mg 10/05/24 21:00 10/08/24 09:02 Apixaban 2.5 Mg Tablet PO 11/04/24 20:59 2.5 mg BID [place] Administration Docusate Sodium 100 mg 10/04/24 09:00 10/08/24 09:01 Docusate Sod 100 Mg Capsule PO 11/03/24 08:59 100 mg QDAY [place] Administration Protocol Lactulose 20 gm 10/05/24 10:30 10/08/24 09:02 Lactulose Syrup 20 Gm/30 Ml Udc PO 11/04/24 10:29 20 gm DAILY [place] Administration Protocol Magnesium Hydroxide 30 ml 10/04/24 02:57 Milk Of Magnesia Susp 30 Ml Udc PO 11/03/24 02:56 QDAY PRN CONSTIPATION Protocol Melatonin 3 mg 10/04/24 21:00 10/07/24 20:31 Melatonin 3 Mg Tablet PO 11/03/24 20:59 3 mg HS [place] Administration Ondansetron HCl 4 mg 10/04/24 02:57 Ondansetron Inj 2 Mg/Ml Inj 2 Ml IVP 11/03/24 02:56 Q6H PRN NAUSEA OR VOMITING Protocol Plan Ysabel Campbell is 89-year-old female with past medical history cataracts, gastric ulcer, carpal tunnel syndrome who presented to the ED from senior resident home with chief complaint of constipation. For the past week has not been able to have a bowel movement. While in the ED workup showed A-fib with RVR rate 140?150. Cardiology Dr. Edwards was consulted and patient mated for management of constipation and new onset A-fib with RVR. #New onset atrial fibrillation with RVR #Paroxismal Afib Presented with new-onset atrial fibrillation with rate in the 140s EKG showed: Atrial fibrillation with RVR, post diltiazem 50 mg x 1. She was started on p.o. metoprolol succinate 25 mg daily. Currently denying any shortness of breath, chest pain, palpitations. Possible cause of onset of this atrial fibrillation may be due to stress from the constipation, autonomic dysfunction. CHADSVasc= 3 indicating 3.2% risk of stroke per year HAS-BLED= 0 TSH normal (1.92), lipid panel normal Echo completed 10/04/24 showed EF 55%, small PFO. - Cardiology Dr. Edwards was consulted, appreciate recommendations-,completed Amiodoron drip and transitioned to PO amiodoron 200 - increased amiodoron 200 qday to amiodoron 200 BID. - added Diltiazem 30 mg Q8H - on Elequise 2.5 BID, will be continued ? Keep K> 4, Mg> 2 - patient back to sinus rhythm, plan is to DC with PO amio and Elequise , #Constipation-resolved Ongoing for the past 1 week, has used minimal [id number] medications. Ended up trying to manually disimpact herself did not appear to be successful. Presented to ED for management of constipation. Since starting docusate, she has had 2 BM. Yesterday manual disimpaction was attempted without significant improvement. Order soapsuds enema and continue oral laxatives. had BM today ?docusate 100mg daily -lacutlose 20mg daily -monitor BM Health Maintenance: Disposition: Telemetry, Patient was accepted to SNF. Still need management of A-fib Feeding: Low-sodium diet DVT proph:Elquis BID CODE STATUS: DNR Patient care was discussed with attending physician Dr. Nataly Cárdenas MD PGY-2 I have carefully reviewed this document. Due to imperfections in the voice software, there could be grammatical errors including phonetic/typographic errors. This in no way compromises the medical care the patient is receiving Attending Provider Attestation/Addendum I have examined the patient, reviewed labs and imaging findings, discussed the case with the resident(s), and reviewed entered orders. I agree with the plan of care as outlined in this note, with these additional summaries/recommendations: Patient seen at bedside. Patient was planned for discharge yesterday although still noted to have significant stool burden. Manual disimpaction was attempted with only minimal relief. Patient unfortunately went back into atrial fibrillation with rapid ventricular response. Patient remained in RVR this morning and cardiology was contacted and patient was started on oral diltiazem. Continue amiodarone 200 mg p.o. twice daily, and Eliquis. Echocardiogram howed EF 55%, Severe LAE, and small PFO. Continue aggressive bowel regimen or severe constipation. Patient seen by physical therapy who recommends SNF placement and patient in agreement. Anticipate discharge in the next 24 to 48 hours if atrial fibrillation becomes controlled. Patient updated on the plan and in agreement. All questions answered to satisfaction. Please see residents note for additional details and management. Dr. Nataly MD
[2024-10-08] MEDS: DILTIAZEM 30 MG TABLET PO ×2 (11:59→21:07)
--- NOTE | 2024-10-08 13:17 | PD.IMPROG ---
Documentation for date of: 10/08/24 Subjective Subjective Interval history: pt developed rapid afib again start po cardizem ; [id number] Exam Vital Signs Temp Pulse Resp BP Pulse Ox O2 Del Method 97.4 F 89 13 101/57 L 94 L Room Air 10/08/24 12:00 10/08/24 12:00 10/08/24 12:00 10/08/24 12:00 10/08/24 12:00 10/08/24 12:00 Routine HEENT Exam Head: Present normocephalic and atraumatic Eye: Present EOMI and PERRL ENT: Present mucous membranes moist Routine Neck Exam Neck: Present supple and trachea midline Routine Respiratory Exam Respiratory: Present chest non-tender, lungs clear, normal breath sounds and no resp distress Routine Cardiovascular Exam Cardiovascular: Present RRR Routine Abdominal Exam Abdominal: Present soft and normoactive bowel sounds Routine Extremities Exam Extremities: Present full ROM Routine Skin Exam Skin: Present intact, dry and warm Routine Neurological Exam Neurological: Present alert, oriented X3 and CN II-XII intact Routine Psychiatric Exam Psychiatric: Present normal affect and normal thought process Objective Labs 10/08/24 05:31 10/08/24 05:31 Labs: Laboratory Results - last 24 hr 10/08/24 05:31 WBC 8.5 RBC 4.23 Hgb 12.9 Hct 38.2 MCV 90 MCH 30.5 MCHC 33.8 RDW Std Deviation 48.0 H Plt Count 289 D Neut % (Auto) 62 Lymph % (Auto) 22 [place] % (Auto) 14 H Eos % (Auto) 2 Baso % (Auto) 1 Neut # (Auto) 5.3 Lymph # (Auto) 1.8 [place] # (Auto) 1.2 H Eos # (Auto) 0.1 Baso # (Auto) 0.0 Immature Gran # (Auto) 0.02 H Absolute Nucleated RBC 0.02 H Immature Gran % 0 Nucleated RBC % 0 Sodium 142 Potassium 4.2 Chloride 106 Carbon Dioxide 28.6 Anion Gap 7 BUN 13 Creatinine 0.8 Estim Creat Clear Calc 42.6 L eGFR > 60 BUN/Creatinine Ratio 16 Glucose 117 H Calculated Osmolality 284 Calcium 8.9 Corrected Calcium 9.2 Total Bilirubin 1.1 AST 15 ALT 14 Alkaline Phosphatase 79 Total Protein 5.6 L Albumin 3.6 Globulin 2.0 L Albumin/Globulin Ratio 1.8 Assessment & Plan A&P Narrative pt developed rapid afib currently on amiodrone / eliquis ; PO cardizem to start Time Spent With Patient Time: Total time spent is greater than 50% in coordination of care (as documented) at patient's floor/unit and/or counseling patient:
[2024-10-08] MEDS: MELATONIN 3 MG TABLET PO (21:08)
[2024-10-09] VITALS (12 sets, daily range): BP systolic 104–119; BP diastolic 64–79; PULSE 89–132; RESP 18–24; TEMP 36.1–37.1; O2SAT 92–99; BMI 19.9; BMI 13.0
[2024-10-09] MEDS: DILTIAZEM 30 MG TABLET PO ×3 (05:13→21:16)
[2024-10-09 06:12] LABS: Basophils # (Auto) 0.0 Thou/mm3 (0.0-0.2); Basophils % (Auto) 1 % (0-2.5); Eosinophils # (Auto) 0.1 Thou/mm3 (0.0-0.5); Eosinophils % (Auto) 2 % (0-10); Hematocrit 39.7 % (36.0-46.0); Hemoglobin 13.4 g/dL (12.0-16.0); Immature Granulocytes Auto 0.02 Thou/mm3 (0.00-0.00); Lymphocytes # (Auto) 1.9 Thou/mm3 (1.0-4.8); Lymphocytes % (Auto) 25 % (10-50); Mean Corpuscular HGB Conc 33.8 g/dl (31.0-37.0); Mean Corpuscular Hemoglobin 31.3 pg (25.0-35.0); Mean Corpuscular Volume 93 fL (80-100); Monocytes # (Auto) 1.1 Thou/mm3 (0.0-0.8); Monocytes % (Auto) 13 % (0-12); Neutrophils # (Auto) 4.7 Thou/mm3 (1.8-7.7); Neutrophils % (Auto) 60 % (37-80); Nucleated Red Blood Cell # 0.02 Thou/mm3 (0.00-0.00); Nucleated Red Blood Cell % 0 /100 WBC (0); Platelet Count 302 Thou/mm3 (140-440); RDW Standard Deviation 49.6 fL (36.4-46.3); Red Blood Count 4.28 Miln/mm3 (4.00-5.20); White Blood Count 7.9 Thou/mm3 (3.6-11.0)
[2024-10-09 06:29] LABS: Alanine Aminotransferase 13 U/L (10-49); Albumin, Serum 3.8 gm/dL (3.4-4.8); Albumin/Globulin Ratio 2.2 (1.2-2.2); Alkaline Phosphatase 79 U/L (46-116); Anion Gap 6 (7-16); Aspartate Amino Transferase 15 U/L (0-34); BUN/Creatinine Ratio 24 Ratio (12-20); Bilirubin,Total 0.9 mg/dL (0.3-1.2); Blood Urea Nitrogen 19 mg/dL (9-23); Calcium 9.4 mg/dL (8.3-10.6); Calcium (Corrected) 9.6 mg/dL (8.5-10.1); Carbon Dioxide 27.6 mMol/L (20.0-31.0); Chloride 103 mMol/L (98-107); Creatinine (Component) 0.8 mg/dL (0.6-1.3); Estimated Creatinine Clearance 42.5 mL/min (>60); Globulin 1.7 gm/dL (2.3-3.5); Glucose 127 mg/dL (74-106); Osmolality,Calculated 278 (275-295); Potassium 4.0 mMol/L (3.4-5.1); Sodium 137 mMol/L (136-145); Total Protein 5.5 gm/dL (5.7-8.2); eGFR > 60 See Note
--- NOTE | 2024-10-09 07:41 | PD.IMPROG ---
Documentation for date of: 10/09/24 Subjective Subjective Interval history: Patient remains in A-fib Currently heart rate is around 100 Patient is continuing on Cardizem 30 mg Q8 amiodarone 200 twice daily We will add Lopressor 25 twice a day to better control the heart rate Patient could be discharged from cardiac standpoint for outpatient management of A-fib Exam Vital Signs Temp Pulse Resp BP Pulse Ox O2 Del Method 97.9 F 102 H 21 H 106/79 99 Room Air 10/09/24 04:00 10/09/24 05:13 10/09/24 04:00 10/09/24 05:13 10/09/24 04:00 10/09/24 04:00 Routine HEENT Exam Head: Present normocephalic and atraumatic Eye: Present EOMI and PERRL ENT: Present mucous membranes moist Routine Neck Exam Neck: Present supple and trachea midline Routine Respiratory Exam Respiratory: Present chest non-tender, lungs clear, normal breath sounds and no resp distress Routine Cardiovascular Exam Cardiovascular: Present RRR Routine Abdominal Exam Abdominal: Present soft and normoactive bowel sounds Routine Extremities Exam Extremities: Present full ROM Routine Skin Exam Skin: Present intact, dry and warm Routine Neurological Exam Neurological: Present alert, oriented X3 and CN II-XII intact Routine Psychiatric Exam Psychiatric: Present normal affect and normal thought process Objective Labs 10/09/24 05:33 10/09/24 05:33 Labs: Laboratory Results - last 24 hr 10/09/24 05:33 WBC 7.9 RBC 4.28 Hgb 13.4 Hct 39.7 MCV 93 MCH 31.3 MCHC 33.8 RDW Std Deviation 49.6 H Plt Count 302 Neut % (Auto) 60 Lymph % (Auto) 25 [place] % (Auto) 13 H Eos % (Auto) 2 Baso % (Auto) 1 Neut # (Auto) 4.7 Lymph # (Auto) 1.9 [place] # (Auto) 1.1 H Eos # (Auto) 0.1 Baso # (Auto) 0.0 Immature Gran # (Auto) 0.02 H Absolute Nucleated RBC 0.02 H Immature Gran % 0 Nucleated RBC % 0 Sodium 137 Potassium 4.0 Chloride 103 Carbon Dioxide 27.6 Anion Gap 6 L BUN 19 Creatinine 0.8 Estim Creat Clear Calc 42.5 L eGFR > 60 BUN/Creatinine Ratio 24 H Glucose 127 H Calculated Osmolality 278 Calcium 9.4 Corrected Calcium 9.6 Total Bilirubin 0.9 AST 15 ALT 13 Alkaline Phosphatase 79 Total Protein 5.5 L Albumin 3.8 Globulin 1.7 L Albumin/Globulin Ratio 2.2 Assessment & Plan A&P Narrative Add Lopressor 25 twice a day Patient appears stable heart rate is around 100 Further cardiac management could be done as outpatient Time Spent With Patient Time: Total time spent is greater than 50% in coordination of care (as documented) at patient's floor/unit and/or counseling patient:
[2024-10-09] MEDS: Milk Of Magnesia Susp 30 ML UDC PO (08:34)
[2024-10-09] MEDS: APIXABAN 2.5 MG TABLET PO ×2 (08:34→21:17)
[2024-10-09] MEDS: LACTULOSE SYRUP 20 GM/30 ML UDC PO (08:34)
[2024-10-09] MEDS: AMIODARONE HCL 200 MG TABLET PO ×2 (08:35→21:16)
[2024-10-09] MEDS: DOCUSATE SOD 100 MG CAPSULE PO (08:35)
--- NOTE | 2024-10-09 09:19 | ESPR_ITS ---
Documentation for date of: 10/09/24 Subjective Subjective Interval history: Patient was seen and examined at bedside. Overnight patient was still on A-fib with heart rate of above 110, patient currently is on amiodarone 200 twice daily, Cardizem 30 mg every 8 hours started, cardiology evaluated the patient, recommended to start Lopressor 25 mg twice daily, patient appears to be dehydrated, blood pressure was on the lower end,, small bolus to 50 cc NS was given, after which blood pressure significantly improved to 119/73, will continue close monitor heart rate, patient is on and off A-fib. Will follow-up with cardiology recommendations, patient currently is not stable to be discharged to SNF, will continue close monitor hemodynamics. Patient had a bowel movement yesterday, constipation has resolved, patient is currently on bowel regimen, continue with diet, if patient remains stable, anticipate discharge in next 24 hours. Exam Vital Signs Temp Pulse Resp BP Pulse Ox O2 Del Method 97.0 F 114 H 18 104/65 98 Room Air 10/09/24 08:00 10/09/24 08:35 10/09/24 08:00 10/09/24 08:35 10/09/24 08:00 10/09/24 08:00 Narrative Exam GENERAL: no acute distress, AAO x3, elderly female, comfortably laying in bed HEENT: Head AT/ NC. Mucous membranes moist. PERRL. Left ear hearing device NECK: Supple, no lymphadenopathy, no carotid bruits. CARDIOVASCULAR: RRR. Normal S1/S2, No m/r/g. No pitting edema of bilateral LEs. RESPIRATORY: CTAB. No wheezing, rhonchi, crackles. GASTROINTESTINAL: Abdomen soft, non tender no palpable masses. Bowel sounds present in all 4 quadrants. MUSCULOSKELETAL:? No cyanosis or edema, no visible joint swelling. NEUROLOGICAL: CN II-XII grossly intact. No focal deficits. Sensation intact, symmetric. PSYCHIATRIC: Awake and alert, not agitated, normal mood and affect. INTEGUMENTARY: No obvious rashes, no jaundice, normal turgor. Objective Labs 10/09/24 05:33 10/09/24 05:33 Labs: Laboratory Results - last 24 hr 10/09/24 05:33 WBC 7.9 RBC 4.28 Hgb 13.4 Hct 39.7 MCV 93 MCH 31.3 MCHC 33.8 RDW Std Deviation 49.6 H Plt Count 302 Neut % (Auto) 60 Lymph % (Auto) 25 [place] % (Auto) 13 H Eos % (Auto) 2 Baso % (Auto) 1 Neut # (Auto) 4.7 Lymph # (Auto) 1.9 [place] # (Auto) 1.1 H Eos # (Auto) 0.1 Baso # (Auto) 0.0 Immature Gran # (Auto) 0.02 H Absolute Nucleated RBC 0.02 H Immature Gran % 0 Nucleated RBC % 0 Sodium 137 Potassium 4.0 Chloride 103 Carbon Dioxide 27.6 Anion Gap 6 L BUN 19 Creatinine 0.8 Estim Creat Clear Calc 42.5 L eGFR > 60 BUN/Creatinine Ratio 24 H Glucose 127 H Calculated Osmolality 278 Calcium 9.4 Corrected Calcium 9.6 Total Bilirubin 0.9 AST 15 ALT 13 Alkaline Phosphatase 79 Total Protein 5.5 L Albumin 3.8 Globulin 1.7 L Albumin/Globulin Ratio 2.2 Quality Measures Quality Measures none Advance care planning discussed with:: patient Assessment & Plan Assessment Current Active Medications: Generic Name Dose Route Start Last Admin Trade Name Freq PRN Reason Stop Dose Admin Acetaminophen 650 mg 10/04/24 02:57 Acetaminophen 325 Mg Tablet PO 11/03/24 02:56 Q6H PRN Fever >100.5 Acetaminophen 1,000 mg 10/04/24 03:07 10/07/24 17:57 Acetaminophen 500 Mg Tablet PO 11/03/24 03:06 1,000 mg Q6H PRN Administration PAIN SCALE 1-3 (mild Amiodarone HCl 200 mg 10/08/24 21:00 10/09/24 08:35 Amiodarone Hcl 200 Mg Tablet PO 11/07/24 20:59 200 mg BID [place] Administration Apixaban 2.5 mg 10/05/24 21:00 10/09/24 08:34 Apixaban 2.5 Mg Tablet PO 11/04/24 20:59 2.5 mg BID [place] Administration Diltiazem HCl 30 mg 10/08/24 11:15 10/09/24 05:13 Diltiazem 30 Mg Tablet PO 11/07/24 11:14 30 mg Q8HR [place] Administration Docusate Sodium 100 mg 10/04/24 09:00 10/09/24 08:35 Docusate Sod 100 Mg Capsule PO 11/03/24 08:59 100 mg QDAY [place] Administration Protocol Sodium Chloride 250 mls @ 999 mls/hr 10/09/24 09:10 Ns IV 10/09/24 09:25 .Q16M ONE Lactulose 20 gm 10/05/24 10:30 10/09/24 08:34 Lactulose Syrup 20 Gm/30 Ml Udc PO 11/04/24 10:29 20 gm DAILY [place] Administration Protocol Magnesium Hydroxide 30 ml 10/09/24 09:00 10/09/24 08:34 Milk Of Magnesia Susp 30 Ml Udc PO 11/08/24 08:59 30 ml QDAY [place] Administration Protocol Melatonin 3 mg 10/04/24 21:00 10/08/24 21:08 Melatonin 3 Mg Tablet PO 11/03/24 20:59 3 mg HS [place] Administration Metoprolol Tartrate 12.5 mg 10/09/24 09:10 Metoprolol Tartrate 25 Mg Tablet PO 11/08/24 09:09 BID [place] Ondansetron HCl 4 mg 10/04/24 02:57 Ondansetron Inj 2 Mg/Ml Inj 2 Ml IVP 11/03/24 02:56 Q6H PRN NAUSEA OR VOMITING Protocol Plan Ysabel Campbell is 89-year-old female with past medical history cataracts, gastric ulcer, carpal tunnel syndrome who presented to the ED from senior resident home with chief complaint of constipation. For the past week has not been able to have a bowel movement. While in the ED workup showed A-fib with RVR rate 140?150. Cardiology Dr. Edwards was consulted and patient mated for management of constipation and new onset A-fib with RVR. #New onset atrial fibrillation with RVR Presented with new-onset atrial fibrillation with rate in the 140s EKG showed: Atrial fibrillation with RVR, post diltiazem 15 mg x 1. Currently denying any shortness of breath, chest pain, palpitations. Possible cause of onset of this atrial fibrillation may be due to stress from the constipation, autonomic dysfunction. CHADSVasc= 3 indicating 3.2% risk of stroke per year HAS-BLED= 0 TSH normal (1.92), lipid panel normal Echo completed 10/04/24 showed EF 55%, small PFO. - Cardiology Dr. Edwards was consulted, appreciate recommendations-,completed Amiodoron drip and transitioned to PO amiodoron - amiodoron 200 BID. - added Diltiazem 30 mg Q8H - Lopressor 12.5 - Elequise 2.5 BID, will be continued ? Keep K> 4, Mg> 2 - patient back to sinus rhythm, plan is to DC with PO amio, cardizem, metorprolol(dosages as tolerates) and Elequise , #Constipation-resolved Ongoing for the past 1 week, has used minimal [id number] medications. Ended up trying to manually disimpact herself did not appear to be successful. Presented to ED for management of constipation. Since starting docusate, she has had 2 BM. Manual disimpaction was attempted without significant improvement. Order soapsuds enema and continue oral laxatives. had BM today ?docusate 100mg daily - lacutlose 20mg daily - monitor BM Health Maintenance: Disposition: Telemetry, Patient was accepted to SNF. Still need management of A-fib Feeding: Low-sodium diet DVT proph:Elquis BID CODE STATUS: DNR Patient care was discussed with attending physician Dr. Nataly Cárdenas MD PGY-2 I have carefully reviewed this document. Due to imperfections in the voice software, there could be grammatical errors including phonetic/typographic errors. This in no way compromises the medical care the patient is receiving Attending Provider Attestation/Addendum I have examined the patient, reviewed labs and imaging findings, discussed the case with the resident(s), and reviewed entered orders. I agree with the plan of care as outlined in this note, with these additional summaries/recommendations: Patient seen at bedside. No acute overnight events. Patient has no new complaints today but continues to be in atrial fibrillation with rapid ventricular response. At bedside her heart rate is noted to be in the 130s. Cardiology following. Patient receiving amiodarone 200 mg p.o. twice daily, oral diltiazem, and Eliquis. Given that heart remains uncontrolled cardiology recommends adding metropolol today. We will monitor blood pressure closely to see if patient can tolerate. Echocardiogram howed EF 55%, Severe LAE, and small PFO. Continue aggressive bowel regimen or severe constipation. S/P manual disimpaction. Patient seen by physical therapy who recommends SNF placement and patient in agreement. Patient updated on the plan and in agreement. All questions answered to satisfaction. Please see residents note for additional details and management. Dr. Nataly MD
[2024-10-09] MEDS: METOPROLOL TARTRATE 25 MG TABLET 12.5 MG PO ×2 (10:21→21:16)
[2024-10-09] MEDS: SODIUM CHLORIDE 0.9% 250 ML 250 ML 999 ML IV (10:23)
--- NOTE | 2024-10-09 17:25 | PC.SS ---
Rounding Note: Plan is to continue to control heart rate. Possible d/c tomorrow.
[2024-10-09] MEDS: MELATONIN 3 MG TABLET PO (21:16)
[2024-10-10] VITALS (12 sets, daily range): BP systolic 98–114; BP diastolic 65–79; PULSE 83–124; RESP 17–29; TEMP 35.9–36.9; O2SAT 90–96; BMI 19.8; BMI 13.0
[2024-10-10] MEDS: DILTIAZEM 30 MG TABLET PO ×3 (05:26→21:46)
--- NOTE | 2024-10-10 07:48 | EKG_ITS ---
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
--- NOTE | 2024-10-10 07:49 | PD.IMPROG ---
Documentation for date of: 10/10/24 Subjective Subjective Interval history: Patient still in atrial fibrillation heart rate in the 100 We will add Lopressor 25 twice daily Exam Vital Signs Temp Pulse Resp BP Pulse Ox O2 Del Method 97.9 F 92 20 98/74 90 L Room Air 10/10/24 04:00 10/10/24 05:26 10/10/24 04:00 10/10/24 05:26 10/10/24 04:00 10/09/24 20:00 Routine HEENT Exam Head: Present normocephalic and atraumatic Eye: Present EOMI and PERRL ENT: Present mucous membranes moist Routine Neck Exam Neck: Present supple and trachea midline Routine Respiratory Exam Respiratory: Present chest non-tender, lungs clear, normal breath sounds and no resp distress Routine Cardiovascular Exam Cardiovascular: Present RRR Routine Abdominal Exam Abdominal: Present soft and normoactive bowel sounds Routine Extremities Exam Extremities: Present full ROM Routine Skin Exam Skin: Present intact, dry and warm Routine Neurological Exam Neurological: Present alert, oriented X3 and CN II-XII intact Routine Psychiatric Exam Psychiatric: Present normal affect and normal thought process Objective Labs 10/09/24 05:33 10/09/24 05:33 Assessment & Plan A&P Narrative Patient's heart rate is still around 90-100 We will add Lopressor 25 twice daily Time Spent With Patient Time: Total time spent is greater than 50% in coordination of care (as documented) at patient's floor/unit and/or counseling patient:
[2024-10-10] MEDS: Milk Of Magnesia Susp 30 ML UDC PO (08:11)
[2024-10-10] MEDS: LACTULOSE SYRUP 20 GM/30 ML UDC PO (08:11)
[2024-10-10] MEDS: AMIODARONE HCL 200 MG TABLET PO ×2 (08:11→21:46)
[2024-10-10] MEDS: APIXABAN 2.5 MG TABLET PO ×2 (08:12→21:46)
[2024-10-10] MEDS: METOPROLOL TARTRATE 25 MG TABLET PO ×2 (08:12→21:45)
[2024-10-10] MEDS: DOCUSATE SOD 100 MG CAPSULE PO (08:12)
--- NOTE | 2024-10-10 11:11 | ESPR_ITS ---
<Statement entered by Ricci Crystal MD - 10/12/24 09:25> I have discussed and was present for the essential components of the history, physical examination, diagnosis, and treatment plan with the resident. I agree with the patient's care as documented by the resident and amended herein by me. Ricci Crystal MD FACP. Documentation for date of: 10/10/24 Subjective Subjective Interval history: No acute events overnight Pt reports feeling eager to ambulate Exam Vital Signs Temp Pulse Resp BP Pulse Ox O2 Del Method 97.9 F 84 202 H 114/74 94 L Room Air 10/10/24 08:00 10/10/24 08:12 10/10/24 08:00 10/10/24 08:12 10/10/24 08:00 10/10/24 08:00 Vitals over the past 24hours were reviewed: Temp: Afebrile HR: 84-115 (tachycardic @2100- on tele) BP: 110s/70s RR: satting well on RA Narrative Exam GENERAL: no acute distress, AAO x3, comfortably laying in bed HEENT: Head AT/ NC. Mucous membranes mildly dry. CARDIOVASCULAR: Tachycardic. No pitting edema of bilateral LEs. RESPIRATORY: Normal work of breathing on RA GASTROINTESTINAL: Abdomen soft, non tender no palpable masses. Bowel sounds present MUSCULOSKELETAL:? No cyanosis or edema, no visible joint swelling. PSYCHIATRIC: Awake and alert, not agitated, normal mood and affect. SKIN: No obvious rashes, no jaundice, normal turgor. Objective Labs 10/09/24 05:33 10/09/24 05:33 Quality Measures Quality Measures none Advance care planning discussed with:: patient Assessment & Plan Assessment Current Active Medications: Generic Name Dose Route Start Last Admin Trade Name Freq PRN Reason Stop Dose Admin Acetaminophen 650 mg 10/04/24 02:57 Acetaminophen 325 Mg Tablet PO 11/03/24 02:56 Q6H PRN Fever >100.5 Acetaminophen 1,000 mg 10/04/24 03:07 10/07/24 17:57 Acetaminophen 500 Mg Tablet PO 11/03/24 03:06 1,000 mg Q6H PRN Administration PAIN SCALE 1-3 (mild Amiodarone HCl 200 mg 10/08/24 21:00 10/10/24 08:11 Amiodarone Hcl 200 Mg Tablet PO 11/07/24 20:59 200 mg BID [place] Administration Apixaban 2.5 mg 10/05/24 21:00 10/10/24 08:12 Apixaban 2.5 Mg Tablet PO 11/04/24 20:59 2.5 mg BID [place] Administration Diltiazem HCl 30 mg 10/08/24 11:15 10/10/24 05:26 Diltiazem 30 Mg Tablet PO 11/07/24 11:14 30 mg Q8HR [place] Administration Docusate Sodium 100 mg 10/04/24 09:00 10/10/24 08:12 Docusate Sod 100 Mg Capsule PO 11/03/24 08:59 100 mg QDAY [place] Administration Protocol Lactulose 20 gm 10/05/24 10:30 10/10/24 08:11 Lactulose Syrup 20 Gm/30 Ml Udc PO 11/04/24 10:29 20 gm DAILY [place] Administration Protocol Magnesium Hydroxide 30 ml 10/09/24 09:00 10/10/24 08:11 Milk Of Magnesia Susp 30 Ml Udc PO 11/08/24 08:59 30 ml QDAY [place] Administration Protocol Melatonin 3 mg 10/04/24 21:00 10/09/24 21:16 Melatonin 3 Mg Tablet PO 11/03/24 20:59 3 mg HS [place] Administration Metoprolol Tartrate 25 mg 10/10/24 09:00 10/10/24 08:12 Metoprolol Tartrate 25 Mg Tablet PO 11/09/24 08:59 25 mg BID [place] Administration Ondansetron HCl 4 mg 10/04/24 02:57 Ondansetron Inj 2 Mg/Ml Inj 2 Ml IVP 11/03/24 02:56 Q6H PRN NAUSEA OR VOMITING Protocol Plan Ysabel Campbell is 89-year-old woman with past medical history gastric ulcer, who presented to the ED from senior resident home with chief concern of constipation. 1 week without BM, in the ED she was found to have Afib with RVR (rates to 150, CARDS consulted (Dr. Edwards). Pending adequate management of HR. #New onset atrial fibrillation with RVR Presented with new-onset atrial fibrillation with rate in the 140s EKG showed: Atrial fibrillation with RVR, post diltiazem 15 mg x 1. Currently denying any shortness of breath, chest pain, palpitations. Possible cause of onset of this atrial fibrillation may be due to stress from the constipation, autonomic dysfunction. SCORES CHADSVasc= 3 indicating 3.2% risk of stroke per year HAS-BLED= 0 Dx - TSH normal (1.92), lipid panel normal - Echo completed 10/04/24 showed EF 55%, small PFO. - Cardiology Dr. Edwards consulted, appreciate recommendations -completed Amiodoron drip and transitioned to PO amiodoron Tx - amiodoron 200 BID. - Diltiazem 30 mg Q8H, per CARDS - increased Metoprolol to 25mg BID - Apixaban 2.5 BID ? Keep K> 4, Mg> 2 - encourage increased PO intake - patient back to sinus rhythm, plan is to DC with PO amio, diltiazem, metoprolol(dosages as tolerates) and apixaban #Constipation Ongoing for the past 1 week, has used minimal [id number] medications. Pt tried to manually disimpact herself, but was not successful . Presented to ED for management of constipation. Since starting docusate, she has had 2 BM. on 10/10 pt reports difficulty with BM, requesting enema Tx ?docusate 100mg daily - lacutlose 20mg daily - milk of magnesia daily - saline enema PRN - monitor BM Health Maintenance: Disposition: Telemetry, Patient was accepted to SNF. Ongoing management of elevated HR, associated with A-fib. Feeding: Low-sodium diet DVT proph:Elquis BID Bowel Reg: lactulose qd, milk of magnesia qd, docusate, saline enema PRN CODE STATUS: DNR Patient care was discussed with attending physician Dr. Marah Espitai MD PGY-1 I have carefully reviewed this document. Due to imperfections in the voice software, there could be grammatical errors including phonetic/typographic errors. This in no way compromises the medical care the patient is receiving. Patient seen and examined at bedside, no acute overnight events. I discussed and supervised with the brand marketing intern physician who took care of this patient. I personally saw and examined the patient. I agree with most of the assessment and plan. Patient receiving treatment for new onset afib with RVR. Currently on eliquis, cardizem, amiodarone, started on metoprolol tartrate today. HR irregular, 90- 110. Will continue to monitor, titrate meds with cardiology as needed. Patient started on bowel regiment, given enema for difficulty passing stool. Plan of care discussed with attending Dr. Crystal. Zachary Rizzo MD PGY-2
--- NOTE | 2024-10-10 11:14 | PC.SS ---
Update: Plan is to d/c patient to SNF today.
--- NOTE | 2024-10-10 11:34 | PC.SS ---
MANAGER EMERGENCY DEPARTMENT confirmed with patient discharge plan to transition to [facility] at time of discharge. Patient provided consent for MANAGER EMERGENCY DEPARTMENT to provide update to patient's daughter, Zuleima Melgar. MANAGER EMERGENCY DEPARTMENT contacted patient's daughter to provide update on discharge plan.
--- NOTE | 2024-10-10 15:40 | PC.SS ---
Rounding Note: Plan is to continue to manage A-Fib. Possible d/c to SNF tomorrow.
[2024-10-10] MEDS: MELATONIN 3 MG TABLET PO (21:45)
[2024-10-11] VITALS (10 sets, daily range): BP systolic 96–113; BP diastolic 65–82; PULSE 82–103; RESP 15–21; TEMP 36.1–36.8; O2SAT 92–94; BMI 19.8
[2024-10-11] MEDS: DILTIAZEM 30 MG TABLET PO ×2 (05:22→14:42)
[2024-10-11 06:06] LABS: Basophils # (Auto) 0.0 Thou/mm3 (0.0-0.2); Basophils % (Auto) 0 % (0-2.5); Eosinophils # (Auto) 0.1 Thou/mm3 (0.0-0.5); Eosinophils % (Auto) 1 % (0-10); Hematocrit 39.2 % (36.0-46.0); Hemoglobin 13.4 g/dL (12.0-16.0); Immature Granulocytes Auto 0.06 Thou/mm3 (0.00-0.00); Lymphocytes # (Auto) 1.7 Thou/mm3 (1.0-4.8); Lymphocytes % (Auto) 13 % (10-50); Mean Corpuscular HGB Conc 34.2 g/dl (31.0-37.0); Mean Corpuscular Hemoglobin 31.0 pg (25.0-35.0); Mean Corpuscular Volume 91 fL (80-100); Monocytes # (Auto) 1.6 Thou/mm3 (0.0-0.8); Monocytes % (Auto) 13 % (0-12); Neutrophils # (Auto) 9.4 Thou/mm3 (1.8-7.7); Neutrophils % (Auto) 73 % (37-80); Nucleated Red Blood Cell # 0.00 Thou/mm3 (0.00-0.00); Nucleated Red Blood Cell % 0 /100 WBC (0); Platelet Count 323 Thou/mm3 (140-440); RDW Standard Deviation 49.0 fL (36.4-46.3); Red Blood Count 4.32 Miln/mm3 (4.00-5.20); White Blood Count 12.8 Thou/mm3 (3.6-11.0)
[2024-10-11 07:05] LABS: Alanine Aminotransferase 14 U/L (10-49); Albumin, Serum 3.9 gm/dL (3.4-4.8); Albumin/Globulin Ratio 1.8 (1.2-2.2); Alkaline Phosphatase 88 U/L (46-116); Anion Gap 8 (7-16); Aspartate Amino Transferase 18 U/L (0-34); BUN/Creatinine Ratio 24 Ratio (12-20); Bilirubin,Total 1.1 mg/dL (0.3-1.2); Blood Urea Nitrogen 19 mg/dL (9-23); Calcium 9.0 mg/dL (8.3-10.6); Calcium (Corrected) 9.1 mg/dL (8.5-10.1); Carbon Dioxide 27.0 mMol/L (20.0-31.0); Chloride 105 mMol/L (98-107); Creatinine (Component) 0.8 mg/dL (0.6-1.3); Estimated Creatinine Clearance 42.2 mL/min (>60); Globulin 2.2 gm/dL (2.3-3.5); Glucose 124 mg/dL (74-106); Magnesium 2.1 mg/dL (1.6-2.6); Osmolality,Calculated 282 (275-295); Phosphorous 3.9 mg/dL (2.4-5.1); Potassium 4.2 mMol/L (3.4-5.1); Sodium 140 mMol/L (136-145); Total Protein 6.1 gm/dL (5.7-8.2); eGFR > 60 See Note
[2024-10-11] MEDS: AMIODARONE HCL 200 MG TABLET PO (08:57)
[2024-10-11] MEDS: DOCUSATE SOD 100 MG CAPSULE PO (08:57)
[2024-10-11] MEDS: METOPROLOL TARTRATE 25 MG TABLET PO (08:58)
[2024-10-11] MEDS: LACTULOSE SYRUP 20 GM/30 ML UDC PO (08:59)
[2024-10-11] MEDS: APIXABAN 2.5 MG TABLET PO (08:59)
[2024-10-11] MEDS: Milk Of Magnesia Susp 30 ML UDC PO (09:00)
--- NOTE | 2024-10-11 09:03 | PC.SS ---
Addendum entered by EMMA Landis 10/11/24 16:11: Patient will d/c to [facility]. Patient's daughter, Zuleima was updated and agreeable with d/c for today. 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 [facility] transport services contacted and they provided an ETA at 1700. Alina and Dina at [facility], and community services manager November updated. Original Note: SS follow up: confirmed with Dina at [facility] that insurance authorization remains in place and patient can d/c to their facility today. Pending d/c orders.
[2024-10-11 11:25] LABS: Collection Type, Urine Clean Catch
[2024-10-11 11:37] LABS: Amorphous Crystals,Urine Present (Absent); Bacteria,Urine 3+; Bilirubin,Urine Negative (Negative); Blood,Urine 1+ (Negative); Glucose, Urine Negative (Negative); Ketones,Urine Negative (Negative); Leukocyte Esterase,Urine Positive (Negative); Nitrite,Urine Negative (Negative); PH,Urine 8.0 (5.0-7.0); Protein,Urine Trace (Neg - Trace); RBC,Urine 21 /hpf (0-3); Specific Gravity,Urine 1.010 (1.001-1.035); Squamous Epithelial Cell,Urine 10 /hpf (0-5); Triple Phosphate Crystal,Urine 2+; Urobilinogen,Urine Negative mg/dL (0.0-1.0); WBC,Urine 155 /hpf (0-5)
[2024-10-11 12:01] LABS: Clarity,Urine Cloudy (Clear/Hazy); Color,Urine Lt-Yellow (Lt Yel-Yel)
[2024-10-11] MEDS: POLYETHYLENE GLYCOL 17 GM PACKET PO (12:46)
--- NOTE | 2024-10-11 13:57 | PC.NURSE ---
spoke with Priyank Espitia, Student Re re: enema, pt had a bm today, she says we'll hold the enema for now
[2024-10-11] MEDS: NITROFURANTOIN MACRO 100 MG CAPSULE PO (14:42)
--- NOTE | 2024-10-11 17:52 | ESDS_ITS ---
<Statement entered by Ricci Crystal MD - 10/13/24 09:34> I have discussed and was present for the essential components of the history, physical examination, diagnosis, and treatment plan with the resident. I agree with the patient's care as documented by the resident and amended herein by me. Ricci Crystal MD FACP. <Statement entered by Zachary Rizzo MD - 10/11/24 18:39> Patient seen and examined at bedside, no acute overnight events. I discussed and supervised with the athletic training internship physician who took care of this patient. I personally saw and examined the patient. I agree with most of the assessment and plan. Plan of care discussed with attending Dr. Crystal. Zachary Rizzo MD PGY-2 Planned Discharge Date 10/11/24 DS: Providers Provider Date of admission: 10/04/24 02:57 Primary care physician: Braxton Newby MD Admitting Provider: Joe Troncoso MD Attending Provider on Admission: Ricci Crystal MD Consults: 10/04/24 10:54 Consult to Cardiology Routine Comment: new onset afib rvr Consulting Provider: Neel Edwards 10/05/24 14:26 Referral Physical Therapy Routine Comment: Physician Instructions: Instructions: Lives in senior resident apts. chief complaint of constipation Attending Provider on DC: Ricci Crystal MD Discharging Provider: RESIDENT Yumiko DS: Diagnosis Problem List Completed Was Problem List Reviewed/Reconciled?: Yes Hospital Course Hospital Course Hospital course: Ms. Campbell was admitted to the hospital for [facility] Afib with RVR. Cardiology was consulted (Dr. Edwards) who helped to manage her tachycardia. Pt was started on amiodorone, apixiban, and diltiazem for managment of her Afib with RVR. Once HRs were stable and at goal, per CARDS, ok for discharge to SNF. on 10/11 (last day of hospitalization) pt was found to have UTI, and then discharged on Nitrofuranotoin 5 day course. While inpatient, she experienced intermittent difficulty stooling, and recieved saline enemas, Milk of Mg, senna, and docusate. Diagnosis at time of discharge #new found Afib with RVR D/c Plan : You have been started on the following meds: -amiodarone 200mg daily -diltiazem 30mg three times daily -metoprolol tartrate 25mg twice daily -eliquis 2.5mg daily Eliquis is a blood thinner, and a bleeding risk. Please go to your priumary doctor if you develop blood in your stool or urine, or frequent bruising. Please continue taking all other meds as previously prescribed Please follow up with cardiology Dr. Edwards in 2 weeks. Please follow up with your primary doctor in 7-10 days. Case discussed with my attending Dr. Arina Espitia MD PGY-1 Status at Discharge Cognitive/behavioral status at discharge: fair Functional status at discharge: uses cane/walker Time Spent with Patient Time attestation: Total time spent providing and/or coordinating discharge services: Time spent: Greater than 30 minutes Exam Vital Signs Temp Pulse Resp BP Pulse Ox O2 Del Method 98.2 F 103 H 20 106/73 93 L Room Air 10/11/24 16:00 10/11/24 16:00 10/11/24 16:00 10/11/24 16:00 10/11/24 16:00 10/11/24 16:00 Narrative Exam GENERAL: no acute distress, AAO x3, comfortably laying in bed HEENT: Head AT/ NC. Mucous membranes mildly dry. CARDIOVASCULAR: mildly tachycardic . No pitting edema of bilateral LEs. RESPIRATORY: Normal work of breathing on RA GASTROINTESTINAL: Abdomen soft, non tender no palpable masses. Bowel sounds present MUSCULOSKELETAL:? No cyanosis or edema, no visible joint swelling. PSYCHIATRIC: Awake and alert, not agitated, normal mood and affect. SKIN: No obvious rashes, no jaundice, Discharge Plan Plan Patient Disposition: Xfer Skilled Nsg Fac (SNF) Patient condition on transfer: Stable Care Plan Goals: You have been started on the following meds: -amiodarone 200mg daily -diltiazem 30mg three times daily -metoprolol tartrate 25mg twice daily -eliquis 2.5mg daily Eliquis is a blood thinner, and a bleeding risk. Please go to your priumary doctor if you develop blood in your stool or urine, or frequent bruising. Please continue taking all other meds as previously prescribed Please follow up with cardiology Dr. Edwards in 2 weeks. Please follow up with your primary doctor in 7-10 days. Please return to ED if you develop new or worsening symptoms. Prescriptions/Referrals Prescriptions/Med Rec: New sennosides [Laxative (sennosides)] 8.6 mg tablet 8.6 mg PO QDAY PRN (Reason: constipation) 14 Days Qty: 14 0RF amiodarone 200 mg Tablet 200 mg PO QDAY Qty: 30 0RF apixaban 2.5 mg tablet 2.5 mg PO BID Qty: 30 0RF lactulose 10 gram/15 mL solution 15 ml PO QDAY MDD 3 PRN (Reason: constipation) Qty: 1200 0RF Rx Instructions: take as needed for constipation, Titrate if bowel movement is more than 2-3 daily diltiazem HCl 30 mg Tablet 30 mg PO Q8HR 30 Days Qty: 90 0RF metoprolol tartrate 25 mg Tablet 25 mg PO BID 30 Days Qty: 60 0RF nitrofurantoin monohyd/m-cryst [Macrobid] 100 mg capsule 100 mg PO BID 7 Days Qty: 14 0RF Rx Instructions: must administer with a meal/food Continued chlorpheniramine maleate [Allergy (chlorpheniramine)] 4 mg Tablet 4 mg PO HSPRN PRN (Reason: Allergy Symptoms) Rx Instructions: do not exceed 2 doses per 24 hrs melatonin 1 mg Tablet 1 mg PO HS PRN (Reason: Insomnia) dhoqmmfmarze-Jm-ianh-minerals 18-0.4 mg Tablet 1 tab PO QDAY Discontinued naproxen sodium [Aleve] 220 mg Capsule 220 mg PO BID PRN (Reason: Pain, Mild) Referrals: Braxton Newby MD [Primary Care Provider] - Neel Edwards MD [Physician] - Patient/Caregiver Discharge Instructions Discharge Activity: resume usual activities Education Materials: Eliquis Oral Tablet 2.5 mg, AFL/Afib, Discharge Instructions for ..., ED Constipation (Adult) Print Language: Amharic Stand Alone Forms: Marily Award Info., Patient Portal Info Letter Discharge Order Discharge Orders: Discharge (Routine); Ordered 10/11/24 Ordered By: Zachary Rizzo Quality Discharge Quality Measures VTE prophylaxis
== END 2024-10-11 17:08 | disposition skilled nursing facility (03) | DRG 309 ==
LOC: SERX 19:09 → SERHOLD 10-04 03:56 → S2NX 10-04 08:17 → S3NX 10-10 22:58
PROVIDERS: Emergency Medicine; Student in an Organized Health Care Education/Training Program; Admitting Provider Student in an Organized Health Care Education/Training Program; Emergency Provider Emergency Medicine; PCP Family Medicine; Visit Provider Internal Medicine
DX: I48.0 Paroxysmal atrial fibrillation (principal); N39.0 Urinary tract infection, site not specified; S32.10XA Unspecified fracture of sacrum, initial encounter for closed fracture; Q21.12 Patent foramen ovale; H91.90 Unspecified hearing loss, unspecified ear; R00.2 Palpitations; K62.89 Other specified diseases of anus and rectum; G56.00 Carpal tunnel syndrome, unspecified upper limb; Z87.11 Personal history of peptic ulcer disease; Z66 Do not resuscitate; Z79.01 Long term (current) use of anticoagulants; Z79.899 Other long term (current) drug therapy; K59.00 Constipation, unspecified; Z88.5 Allergy status to narcotic agent; Z88.0 Allergy status to penicillin; R00.0 Tachycardia, unspecified
CPT/HCPCS: 36415; 74022; 80053; 80061; 81001; 83690; 83735; 83880; 84100; 84439; 84443; 84484; 85025; 85610; 85730; 87086; 87400; 87811; 93005; 93306; 97162; 99285; J0283; J1650; J3475; J3490; J7050; A9270

== ENCOUNTER 2024-10-14 09:48 | Inpatient (IN) | payer MEDICARE, SELFPAY ==
[2024-10-14] VITALS (15 sets, daily range): BP systolic 92–119; BP diastolic 58–74; PULSE 103–130; RESP 16–97; TEMP 36.6–37.4; O2SAT 95–99; BMI 21.6; BMI 21.2
--- NOTE | 2024-10-14 10:07 | XR_ITS ---
Examination: AP chest single view Technique one AP portable upright chest single view Date and time: October 14, 2024 1108 hrs. Comparison October 03, 2024 Indications: Shortness of breath today. Findings: Normal heart size. No pneumonia or pulmonary edema. Significant osteopenia Impression: No pneumonia or pulmonary edema.
--- NOTE | 2024-10-14 10:07 | EKG_ITS ---
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
--- NOTE | 2024-10-14 10:29 | EDNOTE_ITS ---
ED Arrhythmia Palp. RME/HPI General Chief Complaint: Urogenital-Female Stated Complaint: POSSIBLE SEPSIS Time Seen by Provider: 10/14/24 10:29 Arrival date/time: 10/14/24 09:48 RME / HPI RME / HPI narrative: DR. MCCRAY MAIN ED EVALUATION: This section includes all my notes and documentations, including HPI, PE, and ED course.? 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 With decreased urination and dysuria. No other complaints. ROS: All negative except as documented in HPI. Physical Exam: General:? Alert and oriented.? No acute distress when remaining still.? Eyes:? Conjunctivae and lids clear. ENT:? No nasal congestion.? ? Neck:? Supple. Heart: Irregularly irregular (137 bpm). Lungs:? No respiratory distress.? Good air movement.? No severe rhonchi, wheezing, rales.? Abdomen:? Soft with severe suprapubic distention and tenderness. Skin:? Warm and dry.? Neuro:? Alert and oriented X 3.? I reviewed all diagnostic test results. My interpretation of the EKG is: Atrial fibrillation with RVR (137 bpm) with nonspecific ST-T changes. My interpretation of the chest x-ray is no pneumonia or pulmonary edema. Blood tests and urine tests remarkable for UTI. At this point, diagnoses include atrial fibrillation with RVR, UTI, and urinary retention. Treatment here included Davila catheter, Rocephin, and Cardizem bolus and drip. Significant improvement noted. I discussed the case with our hospitalist.? About the presentation and exam and diagnostics and treatments here.? And need of further care in the hospital. Will accept the patient. Jamshid Mccray MD Related Data Home Medications ?Medication ?Instructions ?Recorded ?Confirmed chlorpheniramine maleate 4 mg 4 mg PO HSPRN PRN Allerg y Symptoms 05/28/23 10/15/24 tablet (Allergy (chlorpheniramine)) melatonin 1 mg tablet 3 mg PO HS PRN Insomnia 05/1310/15/24 gghbazugwotv-Be-qugn-minerals 18 1 tab PO QDAY 4 10/15/24 mg-0.4 mg tablet Previous Rx's ?Medication ?Instructions ?Recorded sennosides 8.6 mg tablet (Laxative 8.6 mg PO QDAY PRN constipation 2 10/06/24 (sennosides)) weeks #14 tabs amiodarone 200 mg tablet 200 mg PO QDAY #30 tabs 09/11 12/04 apixaban 2.5 mg tablet 2.5 mg PO BID #30 tabs 10/08 lactulose 10 gram/15 mL oral 15 ml PO QDAY PRN constip ation 10/08/24 solution #1,200 mL diltiazem HCl 30 mg tablet 30 mg PO Q8HR 1 month #90 t abs 10/11/24 metoprolol tartrate 25 mg tablet 25 mg PO BID 1 month #60 tabs 10/11/24 nitrofurantoin 100 mg PO BID 1 week #14 cap s 10/11/24 monohydrate/macrocrystals 100 mg capsule (Macrobid) Allergies Allergy/AdvReac Type Severity Reaction Status Date / Time adhesive tape Allergy Verified 10/03/24 18:17 codeine Allergy Verified 10/03/24 18:17 isosorbide (From Imdur) Allergy Verified 10/03/24 18:17 Penicillins Allergy Verified 10/03/24 18:17 Course Quality Measures none Orders Category Date Time Status Bedside COVID-19 Antigen Test NOW Care 10/14/24 10:06 Active Bedside Influenza A&B Antigen Test NOW Care 10/14/24 10:06 Active Bladder Scan NEEDED Care 10/14/24 10:08 Active EKG (ED ONLY) *Do not use* NOW Care 10/14/24 10:07 Completed Davila to [place] Routine Care 10/14/24 10:06 Ordered Saline [Insert IV] NOW Care 10/14/24 10:06 Active EKG (ED Only) Stat Exams 10/14/24 10:07 Draft XR chest 1V portable Stat Exams 10/14/24 10:07 Ordered ABG [Arterial Blood Gas] Stat Lab 10/14/24 10:07 Ordered BNP [B-Type Natriuretic Peptide] Stat Lab 10/14/24 10:07 Ordered Bilirubin,Direct Stat Lab 10/14/24 10:07 Ordered Blood Culture (Lab) Stat Lab 10/14/24 10:07 Ordered CBC Stat Lab 10/14/24 10:07 Ordered CMP [Comprehensive Metabolic Panel] Stat Lab 10/14/24 10:07 Ordered CRP [C-Reactive Protein] Stat Lab 10/14/24 10:07 Ordered D-Dimer Stat Lab 10/14/24 10:07 Ordered ESR [Sed Rate (ESR)] Stat Lab 10/14/24 10:07 Ordered Free T4 (Free Thyroxine) Stat Lab 10/14/24 10:07 Ordered Lactate (Lactic Acid) Stat Lab 10/14/24 10:07 Ordered Magnesium Stat Lab 10/14/24 10:07 Ordered PT [Prothrombin Time with INR] Stat Lab 10/14/24 10:07 Ordered PTT [Partial Thromboplastin Time] Stat Lab 10/14/24 10:07 Ordered Procalcitonin Stat Lab 10/14/24 10:07 Ordered TSH [Thyroid Stimulating Hormone] Stat Lab 10/14/24 10:07 Ordered Troponin I Stat Lab 10/14/24 10:07 Ordered UA, C/S IF [Urinalysis, C/S if Indicated] Stat Lab 10/14/24 10:08 Ordered DILTIAZEM in D5W 125 MG Med 10/14/24 10:15 Active 125 mg in 125 ml IV 5 mls/hr Diltiazem Inj [Cardizem Inj] Med 10/14/24 10:06 Discontinued 20 mg IV X1 ONE Vital Signs Vital signs: Vital Signs Temperature 98.7 F 10/14/24 09:51 Pulse Rate 130 H 10/14/24 09:51 Respiratory Rate 18 10/14/24 09:51 Blood Pressure 109/73 10/14/24 09:51 Pulse Oximetry (%) 96 10/14/24 09:51 Oxygen Delivery Method Room Air 10/14/24 09:51 Arrhythmia/Palpitations MDM Narrative MDM Narrative:: Moraima Arzate am scribing for and in the presence of Dr. Mccray. 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 With decreased urination and dysuria. No other complaints. Patient data External records reviewed:: [facility] previous records and EMS form Clinical information provided by:: patient and EMS Social determinants that could affect healthcare access:: none Patient has the following chronic illnesses:: Cataracts, gastric ulcer, carpal tunnel syndrome How is presenting disease/condition affected by chronic disease/condition?: uneffected by Evaluation data The following diagnostics were reviewed and interpreted by me:: lab results, radiology exam(s) and EKG tracing(s) (My interpretation of the EKG is: Atrial fibrillation with RVR (137 bpm) with nonspecific ST-T changes. Jamshid Mccray MD) Lab and/or radiology exams considered but not ordered:: none Interpretation Summary: I reviewed all diagnostic test results. My interpretation of the EKG is: Atrial fibrillation with RVR (137 bpm) with nonspecific ST-T changes. My interpretation of the chest x-ray is no pneumonia or pulmonary edema. Blood tests and urine tests remarkable for UTI. Medications / Prescriptions Medications or Prescriptions considered but not ordered:: none Medication administrations:: Medication Administration History Diltiazem HCl (Diltiazem In D5w 125 Mg) 125 mg in 125 mls @ 5 mls/hr IV .Q24H [place] Stop: 11/13/24 10:14 Discontinued Medications Diltiazem HCl (Diltiazem Inj 5 Mg/Ml Vial 5 Ml) 20 mg IV X1 ONE Stop: 10/14/24 10:07 Consultations Consultation(s) initiated? (list below): Yes Consultation #1 (Physician, Specialty, Details): I discussed the case with our hospitalist.? About the presentation and exam and diagnostics and treatments here.? And need of further care in the hospital. Will accept the patient. Diagnosis Differential diagnosis arrhythmia/palpitations: palpitations, anxiety, sinus tachycardia, artial fibrillation, supraventricular tachycardia and ventricular tachycardia Most likely diagnosis given after review of the tests above:: At this point, diagnoses include atrial fibrillation with RVR, UTI, and urinary retention. Admission Indicated Admission indicated?: indicated Explain why admission is indicated or not indicated:: Atrial fibrillation with RVR. Admission Request Was there a request for admission?: Yes Admission Attestation Admission request attestation: Discussed case with Hospitalist service regarding admission. Discussed patients ED course, exam findings, labs, and radiology results. The Hospitalist [agrees] to accept the patient for admission. Disposition Plan Disposition Plan: Admit Discharge Plan Plan Patient Disposition: Admit Acute Care w/in Hospital Problem List Clinical Impression: Atrial fibrillation with RVR, Urinary tract infection, Urinary retention
[2024-10-14 10:38] LABS: Lactate (Lactic Acid) 1.2 mMol/L (0.4-2.0)
[2024-10-14 10:44] LABS: Basophils # (Auto) 0.0 Thou/mm3 (0.0-0.2); Basophils % (Auto) 0 % (0-2.5); Eosinophils # (Auto) 0.0 Thou/mm3 (0.0-0.5); Eosinophils % (Auto) 0 % (0-10); Hematocrit 40.2 % (36.0-46.0); Hemoglobin 13.7 g/dL (12.0-16.0); Immature Granulocytes Auto 0.06 Thou/mm3 (0.00-0.00); Lymphocytes # (Auto) 1.6 Thou/mm3 (1.0-4.8); Lymphocytes % (Auto) 13 % (10-50); Mean Corpuscular HGB Conc 34.1 g/dl (31.0-37.0); Mean Corpuscular Hemoglobin 31.1 pg (25.0-35.0); Mean Corpuscular Volume 91 fL (80-100); Monocytes # (Auto) 1.5 Thou/mm3 (0.0-0.8); Monocytes % (Auto) 13 % (0-12); Neutrophils # (Auto) 8.8 Thou/mm3 (1.8-7.7); Neutrophils % (Auto) 73 % (37-80); Nucleated Red Blood Cell # 0.00 Thou/mm3 (0.00-0.00); Nucleated Red Blood Cell % 0 /100 WBC (0); Platelet Count 388 Thou/mm3 (140-440); RDW Standard Deviation 49.3 fL (36.4-46.3); Red Blood Count 4.41 Miln/mm3 (4.00-5.20); White Blood Count 12.0 Thou/mm3 (3.6-11.0)
[2024-10-14 10:55] LABS: INR 1.1 (0.9-1.3); Partial Thromboplastin Time 30.3 Seconds (22.0-36.0); Prothrombin Time 12.1 Seconds (9.0-12.2)
[2024-10-14 11:08] LABS: Alanine Aminotransferase 11 U/L (10-49); Albumin, Serum 3.9 gm/dL (3.4-4.8); Albumin/Globulin Ratio 1.5 (1.2-2.2); Alkaline Phosphatase 88 U/L (46-116); Anion Gap 12 (7-16); Aspartate Amino Transferase 14 U/L (0-34); BUN/Creatinine Ratio 31 Ratio (12-20); Bilirubin,Direct 0.4 mg/dL (0.0-0.3); Bilirubin,Total 1.1 mg/dL (0.3-1.2); Blood Urea Nitrogen 31 mg/dL (9-23); C-Reactive Protein 8.0 mg/dL (0.0-0.9); Calcium 9.0 mg/dL (8.3-10.6); Calcium (Corrected) 9.1 mg/dL (8.5-10.1); Carbon Dioxide 25.6 mMol/L (20.0-31.0); Chloride 103 mMol/L (98-107); Creatinine (Component) 1.0 mg/dL (0.6-1.3); Estimated Creatinine Clearance 32.8 mL/min (>60); Free T4 (Free Thyroxine) 1.44 ng/dL (0.89-1.76); Globulin 2.6 gm/dL (2.3-3.5); Glucose 131 mg/dL (74-106); Magnesium 2.2 mg/dL (1.6-2.6); Osmolality,Calculated 289 (275-295); Potassium 4.0 mMol/L (3.4-5.1); Procalcitonin 0.10 ng/ml (0.0-0.49); Sed Rate (ESR) 54 mm/hr (0-30); Sodium 141 mMol/L (136-145); Thyroid Stimulating Hormone 5.76 uIU/mL (0.55-4.78); Total Protein 6.5 gm/dL (5.7-8.2); Troponin I < 0.020 ng/mL (0.0-0.045); eGFR 55 See Note
[2024-10-14 11:09] LABS: D-Dimer 820 ng/mL (<600)
[2024-10-14 11:16] LABS: Collection Type, Urine Clean Catch; RBC,Urine 0 /hpf (0-3); Squamous Epithelial Cell,Urine 0 /hpf (0-5)
[2024-10-14 11:28] LABS: Bacteria,Urine Rare; Bilirubin,Urine Negative (Negative); Blood,Urine Negative (Negative); Clarity,Urine Turbid (Clear/Hazy); Color,Urine Yellow (Lt Yel-Yel); Culture Indicated,Urine Yes; Glucose, Urine Negative (Negative); Ketones,Urine Negative (Negative); Leukocyte Esterase,Urine Positive (Negative); Nitrite,Urine Negative (Negative); PH,Urine 8.5 (5.0-7.0); Protein,Urine 1+ (Neg - Trace); Specific Gravity,Urine 1.010 (1.001-1.035); Urobilinogen,Urine Negative mg/dL (0.0-1.0); WBC,Urine 11 /hpf (0-5)
[2024-10-14 11:28] LABS: B-Type Natriuretic Peptide 171 pg/mL (0-100)
[2024-10-14] MEDS: DILTIAZEM INJ 5 MG/ML VIAL 5 ML 20 MG IV (11:30)
[2024-10-14] MEDS: DILTIAZEM in D5W 125 MG 125 MG/125 ML BAG IV (11:30)
[2024-10-14] MEDS: cefTRIAXone/D5w 1gm IV premix 1 GM/50 ML BAG IV (12:44)
[2024-10-14] MEDS: PANTOPRAZOLE 40 MG TABLET PO (15:27)
[2024-10-14] MEDS: AMIODARONE HCL 200 MG TABLET PO ×2 (16:11→21:19)
[2024-10-14] MEDS: DILTIAZEM 30 MG TABLET PO ×2 (16:55→21:18)
--- NOTE | 2024-10-14 17:02 | PD.RESHP ---
Documentation for date of: 10/14/24 [facility] History of Present Illness History of present illness: An 89-year-old woman with a history of cataracts, gastric ulcer, carpal tunnel syndrome, and newly diagnosed atrial fibrillation, recently discharged on October 11, 2024, presented to the ED with lower abdominal pain. Due to her hearing and memory issues, her history was gathered from both her and a chart review. She denied fever, painful urination, nausea, vomiting, or diarrhea, but reported poor oral intake for several days. No other complaints were noted. In the ED, her vitals were stable, and she was saturating well on room air, though her pulse was rapid at 130-140 bpm due to atrial fibrillation with rapid ventricular response. Lab results showed mild leukocytosis (WBC 12), elevated BUN (31), creatinine (1), glucose (131), CRP (8), BNP (171), and TSH (5.76). Urinalysis revealed turbid urine with 1+ proteinuria and 11 WBCs. Her EKG confirmed AFib with RVR, with a heart rate around 140 bpm. Past medical history: Cataracts, gastric ulcer, carpal tunnel syndrome, recently diagnosed atrial fibrillation Past surgical history: Nonsignificant Social history: Denies smoking, alcohol, other illicit drug abuse Review of Systems Review of Systems Narrative Review of Systems: Negative except for the above mentioned. Exam Vital Signs Temp Pulse Resp BP Pulse Ox O2 Del Method 98.1 F 113 H 22 H 92/62 95 Room Air 10/14/24 16:06 10/14/24 16:55 10/14/24 16:06 10/14/24 16:55 10/14/24 16:06 10/14/24 16:06 Narrative Exam General: Awake. Appears dehydrated and poorly nourished. HEENT: Normocephalic, atraumatic, mucous membranes moist. Heart: Irregular rate and rhythm, no murmurs. Lungs: Clear to auscultation with no wheezing or crackles. Abdomen: Soft, nondistended, nontender, positive bowel sounds. No guarding or rebound tenderness. Neurologic: Alert and oriented x3, no gross neurological deficit, and patient able to move all 4 extremities. Extremities: No edema. Skin: No rash or ecchymoses. Results: Labs 10/15/24 05:19 10/15/24 05:19 Labs: Short CBC 10/14/24 Range/Units 10:20 WBC 12.0 H (3.6-11.0) Thou/mm3 Hgb 13.7 (12.0-16.0) g/dL Hct 40.2 (36.0-46.0) % Plt Count 388 D (140-440) Thou/mm3 BMP 10/14/24 10:20 Sodium 141 Potassium 4.0 Chloride 103 Carbon Dioxide 25.6 BUN 31 H Creatinine 1.0 Glucose 131 H Calcium 9.0 Cardiac Enzymes 10/14/24 Range/Units 10:20 Troponin I < 0.020 (0.0-0.045) ng/mL Liver Function 10/14/24 Range/Units 10:20 Total Bilirubin 1.1 (0.3-1.2) mg/dL Direct Bilirubin 0.4 H (0.0-0.3) mg/dL AST 14 (0-34) U/L ALT 11 (10-49) U/L Alkaline Phosphatase 88 (46-116) U/L Albumin 3.9 (3.4-4.8) gm/dL Urine 10/14/24 Range/Units 11:00 Urine Color Yellow (Lt Yel-Yel) Urine Clarity Turbid A (Clear/Hazy) Urine pH 8.5 H (5.0-7.0) Ur Specific [place] 1.010 (1.001-1.035) Urine Protein 1+ A (Neg - Trace) Urine Glucose (UA) Negative (Negative) Quality Measures Quality Measures none Advance care planning discussed with:: patient Medications Home Medications and Allergies Home Medications ?Medication ?Instructions ?Recorded ?Confirmed ?Type chlorpheniramine maleate 4 mg 4 mg PO HSPRN PRN Allergy Symptoms 05/28/23 10/15/24 History tablet (Allergy (chlorpheniramine)) melatonin 1 mg tablet 3 mg PO HS PRN Insomnia 05/28/23 10/15/24 History [id number]-minerals 18 1 tab PO QDAY 05/28/23 10/15/24 History mg-0.4 mg tablet Allergies Allergy/AdvReac Type Severity Reaction Status Date / Time adhesive tape Allergy Verified 10/03/24 18:17 codeine Allergy Verified 10/03/24 18:17 isosorbide (From Imdur) Allergy Verified 10/03/24 18:17 Penicillins Allergy Verified 10/03/24 18:17 Visit Medications Acetaminophen (Acetaminophen 325 Mg Tablet) 650 mg PO Q6H PRN PRN Reason: Fever >101.5 Stop: 11/13/24 14:29 Acetaminophen (Acetaminophen 325 Mg Tablet) 650 mg PO Q6H PRN PRN Reason: PAIN SCALE 1-3 (mild Stop: 11/13/24 14:29 Amiodarone HCl (Amiodarone Hcl 200 Mg Tablet) 200 mg PO BID [place] Stop: 11/13/24 20:59 Apixaban (Apixaban 2.5 Mg Tablet) 2.5 mg PO BID [place] Stop: 11/14/24 20:59 Diltiazem HCl (Diltiazem 30 Mg Tablet) 30 mg PO QID [place] Stop: 11/13/24 16:59 Last Admin: 10/14/24 16:55 Dose: 30 mg Pantoprazole Sodium (Pantoprazole 40 Mg Tablet) 40 mg PO QDAY [place] Stop: 11/13/24 14:59 Last Admin: 10/14/24 15:27 Dose: 40 mg Discontinued Medications Amiodarone HCl (Amiodarone Hcl 200 Mg Tablet) 200 mg PO BID [place] Stop: 11/13/24 14:59 Last Admin: 10/14/24 15:24 Dose: Not Given Amiodarone HCl (Amiodarone Hcl 200 Mg Tablet) 200 mg PO X1 ONE Stop: 10/14/24 16:02 Last Admin: 10/14/24 16:11 Dose: 200 mg Diltiazem HCl (Diltiazem Inj 5 Mg/Ml Vial 5 Ml) 20 mg IV X1 ONE Stop: 10/14/24 10:07 Last Admin: 10/14/24 11:30 Dose: 20 mg Diltiazem HCl (Diltiazem In D5w 125 Mg) 125 mg in 125 mls @ 5 mls/hr IV .Q24H [place] Stop: 11/13/24 10:14 Last Infusion: 10/14/24 16:02 Dose: 0 mls/hr Ceftriaxone Sodium/Dextrose (Rocephin/D5w 1gm Iv Premix) 1 gm in 50 mls @ 100 mls/hr IV X1 ONE Stop: 10/14/24 12:48 Last Infusion: 10/14/24 13:14 Dose: Infused Assessment & Plan Plan Assessment: A 89-year-old female with significant past medical history of cataracts, gastric ulcer, carpal tunnel syndrome and recently diagnosed with atrial fibrillation, recent discharge from hospital on 10/11/2024 admitted to hospital due to urinary tract infection and atrial fibrillation with rapid ventricular rate. # Atrial fibrillation with rapid ventricular rate - Patient presented to the hospital with lower abdominal pain - On examination, found to have atrial fibrillation with rapid ventricle rate - Vitals are stable. On physical examination, patient appears dehydrated - EKG showed atrial fibrillation with rapid ventricular rate, heart rate around 140 - Labs are significant for mild leukocytosis, ESR 54, CRP 8, BUN 31, creatinine 1, TSH 5.76, free T41.44 - Echo done on 10/04/2024 showed Normal LV. Estimated EF 55%. Mild RVE. RVSP 16mmHg. RAP 10mmHg. Severe LAE. Dual Jet Mild MR. Mild to Moderate TR. Small PFO. - [id number] is 3, bled score is 1 Plan - Cardiology consulted, appreciate recs - Patient was recently discharged on amiodarone 200 mg daily, Eliquis 2.5 mg BID, diltiazem 30 mg TID, metoprolol tartate 25 Mg BID - Patient started on diltiazem drip in the ED on this admission - Stopped diltiazem drip and patient was started on oral diltiazem 30 Mg orally 4 times daily and amiodarone 200 mg BID - Restarted Eliquis 2.5 mg twice daily - Telemetry - Will adjust dose of the medication as needed - Keep potassium greater than 4 and magnesium greater than 2 #UTI #Cystitis Patient came in with severe lower abdominal pain, decreased urination, and dysuria. Abdo exam: soft, nondistended, nontender, positive bowel sounds. No guarding or rebound tenderness. Patient does not appear toxic. UA: +leuk, WBC 11 Urine Cx pending Plan Davila cath in-situ - monitor output Ceftriaxone 1g IV daily F/U urine cx Health Maintenance: Diet: low sodium GI prophylaxis: pantoprazole DVT prophylaxis: Antibiotics: Ceftriaxone CODE STATUS: DNR Disposition: Telemetry Case discussed with my attending Dr. Vanessa Vanessa MD PGY-1 Attending Provider Attestation/Addendum 89-year-old female was admitted for atrial fibrillation with RVR currently on diltiazem drip in the emergency room. Patient also has UTI. She was recently discharged following diagnosis of atrial fibrillation. The patient denies chest pain. She is not short of breath. She is not hypoxic. Patient has no fever or chills. He has no vomiting or diarrhea reported. I discussed with and supervised the resident physician who took care of this patient. I agree with the assessment and plan as above.
--- NOTE | 2024-10-14 17:29 | ESCONSULT_ITS ---
<Statement entered by Katie Rey MD - 10/14/24 19:01> I personally evaluated the patient examined the patient emergency room with PGY 2 Dr. Delroy Bynum patient was recently hospital with A-fib RVR now back in A- fib fib RVR with urinary tract infection possible precipitating A-fib recommend amiodarone oral 200 twice daily and low-dose diltiazem for rate control rate appears to be controlled appropriately well continue low-dose Eliquis as well. HPI Data of Consult Requesting Physician: Jose Mendez MD Admitting Provider: Jose Mendez MD Attending Provider: Jose Mendez MD Primary Care Provider: Dov Guerrero MD Consult Narrative Reason for consult: Atrial fibrillation with rapid ventricular rate History of present illness: Patient has hearing loss and memory problems. So history is taken from patient and chart review. A 89-year-old female with significant past medical history of cataracts, gastric ulcer, carpal tunnel syndrome and recently diagnosed with atrial fibrillation, recent discharge from hospital on 10/11/2024 presented to the hospital with chief complaints of pain in the lower abdomen. Denies fever, burning micturition, nausea, vomitings, diarrhea. Endorsed that she had poor oral intake since couple of days. Denies any other complaints. In the ED, patient is found to have atrial fibrillation with rapid ventricular rate In the ED, vitals are stable and patient is saturating on room air with pulse rate around 130 to 140 bpm. Labs are significant for mild leukocytosis 12, BUN 31, creatinine 1, glucose 131, CRP 8, BNP 171, TSH 5.76, free T4 1.44. Urine analysis showed turbid urine, 1+ proteinuria, 11 WBC. EKG showed atrial fibrillation with rapid ventricular rate with heart rate around 140 bpm Cardiology is consulted in view of atrial fibrillation with rapid ventricular rate Past medical history: Cataracts, gastric ulcer, carpal tunnel syndrome, recently diagnosed atrial fibrillation Past surgical history: Nonsignificant Social history: Denies smoking, alcohol, other illicit drug abuse cc:: cc: Jose Mendez MD Review of Systems Review of Systems Systems Reviewed: All systems reviewed, normal except as documented Exam Vital Signs Temp Pulse Resp BP Pulse Ox O2 Del Method 98.1 F 113 H 22 H 92/62 95 Room Air 10/14/24 16:06 10/14/24 16:55 10/14/24 16:06 10/14/24 16:55 10/14/24 16:06 10/14/24 16:06 Narrative Exam General: Awake. Appears dehydrated and poorly nourished HEENT: Normocephalic, atraumatic, mucous membranes moist. Heart: IRRegular rate and rhythm, no murmurs. Lungs: Clear to auscultation with no wheezing or crackles. Abdomen: Soft, nondistended, nontender, positive bowel sounds. ?No guarding or rebound tenderness. Neurologic: Alert and oriented x3, no gross neurological deficit, and patient able to move all 4 extremities. Extremities: No edema. Skin: No rash or ecchymoses. Results Labs 10/14/24 10:20 10/14/24 10:20 Labs: Short CBC 10/14/24 Range/Units 10:20 WBC 12.0 H (3.6-11.0) Thou/mm3 Hgb 13.7 (12.0-16.0) g/dL Hct 40.2 (36.0-46.0) % Plt Count 388 D (140-440) Thou/mm3 BMP 10/14/24 10:20 Sodium 141 Potassium 4.0 Chloride 103 Carbon Dioxide 25.6 BUN 31 H Creatinine 1.0 Glucose 131 H Calcium 9.0 Cardiac Enzymes 10/14/24 Range/Units 10:20 Troponin I < 0.020 (0.0-0.045) ng/mL Liver Function 10/14/24 Range/Units 10:20 Total Bilirubin 1.1 (0.3-1.2) mg/dL Direct Bilirubin 0.4 H (0.0-0.3) mg/dL AST 14 (0-34) U/L ALT 11 (10-49) U/L Alkaline Phosphatase 88 (46-116) U/L Albumin 3.9 (3.4-4.8) gm/dL Urine 10/14/24 Range/Units 11:00 Urine Color Yellow (Lt Yel-Yel) Urine Clarity Turbid A (Clear/Hazy) Urine pH 8.5 H (5.0-7.0) Ur Specific [place] 1.010 (1.001-1.035) Urine Protein 1+ A (Neg - Trace) Urine Glucose (UA) Negative (Negative) Quality Measures Quality Measures none Advance care planning discussed with:: patient Medications Home Medications and Allergies Home Medications ?Medication ?Instructions ?Recorded ?Confirmed ?Type chlorpheniramine maleate 4 mg 4 mg PO HSPRN PRN Allerg y Symptoms 05/28/23 10/10/24 History tablet (Allergy (chlorpheniramine)) melatonin 1 mg tablet 1 mg PO HS PRN Insomnia 05/1310/07/24 History rxfkrimazxrp-Vd-vxwh-minerals 18 1 tab PO QDAY 4 10/10/24 History mg-0.4 mg tablet Allergies Allergy/AdvReac Type Severity Reaction Status Date / Time adhesive tape Allergy Verified 10/03/24 18:17 codeine Allergy Verified 10/03/24 18:17 isosorbide (From Imdur) Allergy Verified 10/03/24 18:17 Penicillins Allergy Verified 10/03/24 18:17 Visit Medications Acetaminophen (Acetaminophen 325 Mg Tablet) 650 mg PO Q6H PRN PRN Reason: Fever >101.5 Stop: 11/13/24 14:29 Acetaminophen (Acetaminophen 325 Mg Tablet) 650 mg PO Q6H PRN PRN Reason: PAIN SCALE 1-3 (mild Stop: 11/13/24 14:29 Amiodarone HCl (Amiodarone Hcl 200 Mg Tablet) 200 mg PO BID [facility] Stop: 11/13/24 20:59 Apixaban (Apixaban 2.5 Mg Tablet) 2.5 mg PO BID [facility] Stop: 11/14/24 20:59 Diltiazem HCl (Diltiazem 30 Mg Tablet) 30 mg PO QID [facility] Stop: 11/13/24 16:59 Last Admin: 10/14/24 16:55 Dose: 30 mg Pantoprazole Sodium (Pantoprazole 40 Mg Tablet) 40 mg PO QDAY [facility] Stop: 11/13/24 14:59 Last Admin: 10/14/24 15:27 Dose: 40 mg Discontinued Medications Amiodarone HCl (Amiodarone Hcl 200 Mg Tablet) 200 mg PO BID [facility] Stop: 11/13/24 14:59 Last Admin: 10/14/24 15:24 Dose: Not Given Amiodarone HCl (Amiodarone Hcl 200 Mg Tablet) 200 mg PO X1 ONE Stop: 10/14/24 16:02 Last Admin: 10/14/24 16:11 Dose: 200 mg Diltiazem HCl (Diltiazem Inj 5 Mg/Ml Vial 5 Ml) 20 mg IV X1 ONE Stop: 10/14/24 10:07 Last Admin: 10/14/24 11:30 Dose: 20 mg Diltiazem HCl (Diltiazem In D5w 125 Mg) 125 mg in 125 mls @ 5 mls/hr IV .Q24H [place] Stop: 11/13/24 10:14 Last Infusion: 10/14/24 16:02 Dose: 0 mls/hr Ceftriaxone Sodium/Dextrose (Rocephin/D5w 1gm Iv Premix) 1 gm in 50 mls @ 100 mls/hr IV X1 ONE Stop: 10/14/24 12:48 Last Infusion: 10/14/24 13:14 Dose: Infused Assessment & Plan Plan A 89-year-old female with significant past medical history of cataracts, gastric ulcer, carpal tunnel syndrome and recently diagnosed with atrial fibrillation, recent discharge from hospital on 10/11/2024 presented to the hospital with chief complaints of pain in the lower abdomen and cardiology is consulted for atrial fibrillation with rapid ventricular rate # Atrial fibrillation with rapid ventricular rate - Patient presented to the hospital with lower abdominal pain - On examination, found to have atrial fibrillation with rapid ventricle rate - Vitals are stable. On physical examination, patient appears dehydrated - EKG showed atrial fibrillation with rapid ventricular rate, heart rate around 140 - Labs are significant for mild leukocytosis, ESR 54, CRP 8, BUN 31, creatinine 1, TSH 5.76, free T41.44 - Echo done on 10/04/2024 showed Normal LV. Estimated EF 55%. Mild RVE. RVSP 16mmHg. RAP 10mmHg. Severe LAE. Dual Jet Mild MR. Mild to Moderate TR. Small PFO. - [id number] or is 3, has bled score is 1 Plan - Patient was discharged on amiodarone 200 Mg p.o. daily, Eliquis 2.5 Mg p.o. twice daily, diltiazem 30 Mg p.o. 3 times daily, metoprolol tartate 25 Mg p.o. twice daily - Patient was started on diltiazem drip in the ED - Stopped diltiazem drip and patient was started on oral diltiazem 30 Mg orally 4 times daily and amiodarone 200 Mg twice daily - Can restart Eliquis 2.5 Mg twice daily if there are no bleeding manifestations. - Admit to telemetry - Will adjust dose of the medication as needed - Keep potassium greater than 4 and magnesium greater than 2 Patient plan of care was discussed with [employer]er, Dr. Candido Bynum, PGY2
[2024-10-14] MEDS: SODIUM CHLORIDE 0.9% 500 ML 500 ML 999 ML IV (18:11)
[2024-10-14] MEDS: APIXABAN 2.5 MG TABLET PO (21:19)
[2024-10-15] VITALS (14 sets, daily range): BP systolic 91–128; BP diastolic 54–88; PULSE 81–128; RESP 9–95; TEMP 36.2–36.4; O2SAT 93–97; BMI 20.3
[2024-10-15] MEDS: DILTIAZEM 30 MG TABLET PO ×3 (05:56→12:37)
[2024-10-15 06:14] LABS: Basophils # (Auto) 0.0 Thou/mm3 (0.0-0.2); Basophils % (Auto) 1 % (0-2.5); Eosinophils # (Auto) 0.2 Thou/mm3 (0.0-0.5); Eosinophils % (Auto) 3 % (0-10); Hematocrit 36.7 % (36.0-46.0); Hemoglobin 12.3 g/dL (12.0-16.0); Immature Granulocytes Auto 0.01 Thou/mm3 (0.00-0.00); Lymphocytes # (Auto) 1.6 Thou/mm3 (1.0-4.8); Lymphocytes % (Auto) 26 % (10-50); Mean Corpuscular HGB Conc 33.5 g/dl (31.0-37.0); Mean Corpuscular Hemoglobin 30.8 pg (25.0-35.0); Mean Corpuscular Volume 92 fL (80-100); Monocytes # (Auto) 0.9 Thou/mm3 (0.0-0.8); Monocytes % (Auto) 15 % (0-12); Neutrophils # (Auto) 3.4 Thou/mm3 (1.8-7.7); Neutrophils % (Auto) 56 % (37-80); Nucleated Red Blood Cell # 0.00 Thou/mm3 (0.00-0.00); Nucleated Red Blood Cell % 0 /100 WBC (0); Platelet Count 374 Thou/mm3 (140-440); RDW Standard Deviation 49.9 fL (36.4-46.3); Red Blood Count 3.99 Miln/mm3 (4.00-5.20); White Blood Count 6.1 Thou/mm3 (3.6-11.0)
[2024-10-15 06:53] LABS: Alanine Aminotransferase 10 U/L (10-49); Albumin, Serum 3.5 gm/dL (3.4-4.8); Albumin/Globulin Ratio 1.5 (1.2-2.2); Alkaline Phosphatase 78 U/L (46-116); Anion Gap 11 (7-16); Aspartate Amino Transferase 13 U/L (0-34); BUN/Creatinine Ratio 31 Ratio (12-20); Bilirubin,Total 0.8 mg/dL (0.3-1.2); Blood Urea Nitrogen 25 mg/dL (9-23); Calcium 8.5 mg/dL (8.3-10.6); Calcium (Corrected) 8.9 mg/dL (8.5-10.1); Carbon Dioxide 26.6 mMol/L (20.0-31.0); Chloride 106 mMol/L (98-107); Creatinine (Component) 0.8 mg/dL (0.6-1.3); Estimated Creatinine Clearance 40.7 mL/min (>60); Globulin 2.4 gm/dL (2.3-3.5); Glucose 111 mg/dL (74-106); Magnesium 2.2 mg/dL (1.6-2.6); Osmolality,Calculated 292 (275-295); Phosphorous 3.4 mg/dL (2.4-5.1); Potassium 3.8 mMol/L (3.4-5.1); Sodium 144 mMol/L (136-145); Total Protein 5.9 gm/dL (5.7-8.2); eGFR > 60 See Note
[2024-10-15] MEDS: PANTOPRAZOLE 40 MG TABLET PO (08:02)
[2024-10-15] MEDS: APIXABAN 2.5 MG TABLET PO ×2 (08:02→20:30)
[2024-10-15] MEDS: AMIODARONE HCL 200 MG TABLET PO ×2 (08:02→20:29)
[2024-10-15] MEDS: cefTRIAXone 1,000 MG in SODIUM CHLORIDE 0.9% (Popper) 50 ML 100 MG IV (09:36)
--- NOTE | 2024-10-15 09:37 | EKG_ITS ---
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
[2024-10-15] MEDS: SODIUM CHLORIDE 0.9% 1000 ML 1,000 ML 60 ML IV (11:06)
--- NOTE | 2024-10-15 11:09 | PC.SS ---
This is 89-year-old, , female who presented to the ED for severe abdominal pain. Patient appeared alert and oriented to self, place and situation. Patient was pleasant, her mood and behavior were ordinary. Patient reported that she came from [facility]; she was discharged on 10/11. However, she is unsure of returning. Patient assigned her daughter, Zuleima, as her medical decision maker. Patient reported that her current PCP is Dr. Guerrero. SW spoke to patient's daughter, Zuleima via telephone call. Zuleima reported that she is concerned for patient due to suffering from falls at home. Zuleima reported that she would like to evaluate how well patient can ambulate, speak to the doctors, then make a decision about discharge planning. Discharge plan: return home with home health vs. return to [facility]. Next of kin: Zuleima Gibson., mother
--- NOTE | 2024-10-15 13:37 | PD.RESPRO ---
Documentation for date of: 10/15/24 Subjective Subjective Interval history: Patient seen at bedside. No overnight events. Patient not complaining of new sx. Exam Vital Signs Temp Pulse Resp BP Pulse Ox O2 Del Method 97.6 F 116 H 9 L 128/88 H 96 Room Air 10/15/24 12:00 10/15/24 12:37 10/15/24 12:00 10/15/24 12:37 10/15/24 12:00 10/15/24 12:00 Narrative Exam General: Awake. Fraile appearing. HEENT: Normocephalic, atraumatic, mucous membranes moist. Heart: Irregular rate and rhythm, no murmurs. Lungs: Clear to auscultation with no wheezing or crackles. Abdomen: Soft, nondistended, nontender, positive bowel sounds. No guarding or rebound tenderness. Neurologic: Alert and oriented x3, no gross neurological deficit, and patient able to move all 4 extremities. Extremities: No peripheral edema. Skin: No rash or ecchymoses. Objective Labs 10/15/24 05:19 10/15/24 05:19 Labs: Laboratory Results - last 24 hr 10/15/24 05:19 WBC 6.1 D RBC 3.99 L Hgb 12.3 Hct 36.7 MCV 92 MCH 30.8 MCHC 33.5 RDW Std Deviation 49.9 H Plt Count 374 Neut % (Auto) 56 Lymph % (Auto) 26 [place] % (Auto) 15 H Eos % (Auto) 3 Baso % (Auto) 1 Neut # (Auto) 3.4 Lymph # (Auto) 1.6 [place] # (Auto) 0.9 H Eos # (Auto) 0.2 Baso # (Auto) 0.0 Immature Gran # (Auto) 0.01 H Absolute Nucleated RBC 0.00 Immature Gran % 0 Nucleated RBC % 0 Sodium 144 Potassium 3.8 Chloride 106 Carbon Dioxide 26.6 Anion Gap 11 BUN 25 H Creatinine 0.8 Estim Creat Clear Calc 40.7 L eGFR > 60 BUN/Creatinine Ratio 31 H Glucose 111 H Calculated Osmolality 292 Calcium 8.5 Corrected Calcium 8.9 Phosphorus 3.4 Magnesium 2.2 Total Bilirubin 0.8 AST 13 ALT 10 Alkaline Phosphatase 78 Total Protein 5.9 Albumin 3.5 Globulin 2.4 Albumin/Globulin Ratio 1.5 Quality Measures Quality Measures none Advance care planning discussed with:: patient Assessment & Plan Assessment Current Active Medications: Generic Name Dose Route Start Last Admin Trade Name Freq PRN Reason Stop Dose Admin Acetaminophen 650 mg 10/14/24 14:30 Acetaminophen 325 Mg Tablet PO 11/13/24 14:29 Q6H PRN Fever >101.5 Acetaminophen 650 mg 10/14/24 14:30 Acetaminophen 325 Mg Tablet PO 11/13/24 14:29 Q6H PRN PAIN SCALE 1-3 (mild Amiodarone HCl 200 mg 10/14/24 21:00 10/15/24 08:02 Amiodarone Hcl 200 Mg Tablet PO 11/13/24 20:59 200 mg BID [place] Administration Apixaban 2.5 mg 10/14/24 21:00 10/15/24 08:02 Apixaban 2.5 Mg Tablet PO 11/13/24 20:59 2.5 mg BID [place] Administration Diltiazem HCl 30 mg 10/14/24 17:00 10/15/24 11:58 Diltiazem 30 Mg Tablet PO 11/13/24 16:59 30 mg QID [place] Administration Ceftriaxone Sodium/Dextrose 1 gm in 50 mls @ 100 mls/hr 10/16/24 09:00 Rocephin/D5w 1gm Iv Premix IV 10/23/24 08:59 QDAY [place] Sodium Chloride 1,000 mls @ 60 mls/hr 10/15/24 10:30 10/15/24 11:06 Ns IV 11/14/24 10:29 60 mls/hr .[id number] [place] Administration Pantoprazole Sodium 40 mg 10/14/24 15:00 10/15/24 08:02 Pantoprazole 40 Mg Tablet PO 11/13/24 14:59 40 mg QDAY [place] Administration Plan Assessment: A 89-year-old female with significant past medical history of cataracts, gastric ulcer, carpal tunnel syndrome and recently diagnosed of atrial fibrillation, recent discharge from hospital on 10/11/2024 admitted to hospital due to UTI and atrial fibrillation with RVR. # Atrial fibrillation with rapid ventricular rate - Patient presented to the hospital with lower abdominal pain - On examination, found to have atrial fibrillation with rapid ventricle rate - EKG showed atrial fibrillation with rapid ventricular rate, heart rate around 140 - Labs on admission: mild leukocytosis, ESR 54, CRP 8, BUN 31, creatinine 1, TSH 5.76, free T41.44 - Echo done on 10/04/2024 showed Normal LV. Estimated EF 55%. Mild RVE. RVSP 16mmHg. RAP 10mmHg. Severe LAE. Dual Jet Mild MR. Mild to Moderate TR. Small PFO. - [id number] is 3, HASBLED score is 1 - 10/15/24 Leukocytosis improved, Plan - Cardiology consulted, appreciate recs - Oral diltiazem switched from 30 to 60 mg orally 4 times daily today - Oral amiodarone 200 mg BID - Restarted Eliquis 2.5 mg twice daily - Telemetry - Will adjust dose of the medication as needed - Keep potassium greater than 4 and magnesium greater than 2 #UTI #Cystitis - GNR Patient came in with severe lower abdominal pain, decreased urination, and dysuria. Abdo exam: soft, nondistended, nontender, positive bowel sounds. No guarding or rebound tenderness. Patient does not appear toxic. UA: +leuk, WBC 11 Urine Cx GNR positive Plan Davila cath in-situ - monitor output Ceftriaxone 1g IV daily F/U Urine culture for sensitivities Health Maintenance: Diet: low sodium GI prophylaxis: pantoprazole DVT prophylaxis: Antibiotics: Ceftriaxone CODE STATUS: DNR Disposition: Telemetry Case discussed with my attending Dr. Vanessa Vanessa MD PGY-1 Attending Provider Attestation/Addendum Patient still has A-fib with RVR heart rate today was in the 170s at 1 point. The patient denies chest pain. She is not short of breath cardiology consultation requested. The patient is on amiodarone and diltiazem. Blood pressure is okay. She is not confused. She has good urine output I discussed with and supervised the resident physician who took care of this patient. I agree with the assessment and plan as above.
[2024-10-15] MEDS: DILTIAZEM 30 MG TABLET 60 MG PO ×2 (16:41→20:29)
--- NOTE | 2024-10-15 22:29 | ESPR_ITS ---
<Statement entered by Katie Rey MD - 10/18/24 00:10> I personally evaluated examined the patient with Dr. Troncoso PGY 2 patient has atrial fibrillation rate controlled well no bleeding issues on Eliquis had a urinary tract infection improving evaluated patient with resident physician agree with the treatment plan recommendation as documented all essential components of the consultation follow-up report is reviewed personally by me Documentation for date of: 10/15/24 Subjective Subjective Interval history: Pt is seen at bedside, daughter is also at bedside. Pt denies any shortness of breath, chest pain or palpitations. However pt remains in a-fib with Rapid HR with HR between 130's 150. Currently pt is transitioned to oral amiodarone 200mg BID with diltiazam 30mg QID. Pt echo is with in normal limits, therefore will increase diltiazam to 60mg QID. Continue to monitor telemetry closely. otherwise labs are largely unremarkable, Pt has no other complaints. Exam Vital Signs Temp Pulse Resp BP Pulse Ox O2 Del Method 97.5 F 93 18 103/68 93 L Room Air 10/15/24 20:00 10/15/24 20:29 10/15/24 20:04 10/15/24 20:29 10/15/24 20:00 10/15/24 20:00 Narrative Exam GENERAL: A&Ox3 . Awake, Not in acute distress NEURO: no focal neurological deficits HEENT: Atraumatic, Normocephalic. mucous membranes moist. Eyes open, symmetrical, & clear HEART: irregular rate, no heart murmurs heard LUNGS: Clear to auscultation with no wheezing or crackles. ABDOMEN: soft, non-distended, non-tender, bowel sounds heard, no guarding or rebound tenderness SKIN: No Rash or ecchymoses EXTREMITIES: No edema, tenderness, able to move all 4 extremities, pedal pulses palpated Objective Labs 10/15/24 05:19 10/15/24 05:19 Labs: Laboratory Results - last 24 hr 10/15/24 05:19 WBC 6.1 D RBC 3.99 L Hgb 12.3 Hct 36.7 MCV 92 MCH 30.8 MCHC 33.5 RDW Std Deviation 49.9 H Plt Count 374 Neut % (Auto) 56 Lymph % (Auto) 26 [place] % (Auto) 15 H Eos % (Auto) 3 Baso % (Auto) 1 Neut # (Auto) 3.4 Lymph # (Auto) 1.6 [place] # (Auto) 0.9 H Eos # (Auto) 0.2 Baso # (Auto) 0.0 Immature Gran # (Auto) 0.01 H Absolute Nucleated RBC 0.00 Immature Gran % 0 Nucleated RBC % 0 Sodium 144 Potassium 3.8 Chloride 106 Carbon Dioxide 26.6 Anion Gap 11 BUN 25 H Creatinine 0.8 Estim Creat Clear Calc 40.7 L eGFR > 60 BUN/Creatinine Ratio 31 H Glucose 111 H Calculated Osmolality 292 Calcium 8.5 Corrected Calcium 8.9 Phosphorus 3.4 Magnesium 2.2 Total Bilirubin 0.8 AST 13 ALT 10 Alkaline Phosphatase 78 Total Protein 5.9 Albumin 3.5 Globulin 2.4 Albumin/Globulin Ratio 1.5 Quality Measures Quality Measures none Advance care planning discussed with:: patient Assessment & Plan Assessment Current Active Medications: Generic Name Dose Route Start Last Admin Trade Name Freq PRN Reason Stop Dose Admin Acetaminophen 650 mg 10/14/24 14:30 Acetaminophen 325 Mg Tablet PO 11/13/24 14:29 Q6H PRN Fever >101.5 Acetaminophen 650 mg 10/14/24 14:30 Acetaminophen 325 Mg Tablet PO 11/13/24 14:29 Q6H PRN PAIN SCALE 1-3 (mild Amiodarone HCl 200 mg 10/14/24 21:00 10/15/24 20:29 Amiodarone Hcl 200 Mg Tablet PO 11/13/24 20:59 200 mg BID [place] Administration Apixaban 2.5 mg 10/14/24 21:00 10/15/24 20:30 Apixaban 2.5 Mg Tablet PO 11/13/24 20:59 2.5 mg BID [place] Administration Diltiazem HCl 60 mg 10/15/24 17:00 10/15/24 20:29 Diltiazem 30 Mg Tablet PO 11/14/24 16:59 60 mg QID [place] Administration Ceftriaxone Sodium/Dextrose 1 gm in 50 mls @ 100 mls/hr 10/16/24 09:00 Rocephin/D5w 1gm Iv Premix IV 10/23/24 08:59 QDAY [place] Sodium Chloride 1,000 mls @ 60 mls/hr 10/15/24 10:30 10/15/24 11:06 Ns IV 11/14/24 10:29 60 mls/hr .[id number] [place] Administration Pantoprazole Sodium 40 mg 10/14/24 15:00 10/15/24 08:02 Pantoprazole 40 Mg Tablet PO 11/13/24 14:59 40 mg QDAY [place] Administration Plan A 89-year-old female with significant past medical history of cataracts, gastric ulcer, carpal tunnel syndrome and recently diagnosed with atrial fibrillation, recent discharge from hospital on 10/11/2024 presented to the hospital with chief complaints of pain in the lower abdomen and cardiology is consulted for atrial fibrillation with rapid ventricular rate # Atrial fibrillation with rapid ventricular rate - Patient presented to the hospital with lower abdominal pain - On examination, found to have atrial fibrillation with rapid ventricle rate - Vitals are stable. On physical examination, patient appears dehydrated - EKG showed atrial fibrillation with rapid ventricular rate, heart rate around 140 - Labs are significant for mild leukocytosis, ESR 54, CRP 8, BUN 31, creatinine 1, TSH 5.76, free T41.44 - Echo done on 10/04/2024 showed Normal LV. Estimated EF 55%. Mild RVE. RVSP 16mmHg. RAP 10mmHg. Severe LAE. Dual Jet Mild MR. Mild to Moderate TR. Small PFO. - [id number] or is 3, has bled score is 1 Plan - Patient was started on diltiazem drip in the ED - Patient is transitioned to amiodarone 200 Mg p.o.BID, diltiazem 60 Mg p.o. QID and Eliquis 2.5 Mg p.o. twice daily - monitor telemetry closely - Keep potassium greater than 4 and magnesium greater than 2 #UTI #Cystitis - GNR management as per primary care Assessment and plan discussed with my attending physician Dr. Candido Troncoso (PGY-2)- Internal medicine resident
[2024-10-16] VITALS (14 sets, daily range): BP systolic 104–126; BP diastolic 62–78; PULSE 62–105; RESP 17–96; TEMP 36.1–36.7; O2SAT 91–97; BMI 20.3
[2024-10-16] MEDS: SODIUM CHLORIDE 0.9% 1000 ML 1,000 ML 60 ML IV ×2 (03:07→18:29)
[2024-10-16] MEDS: DILTIAZEM 30 MG TABLET 60 MG PO ×4 (05:06→21:08)
[2024-10-16 06:28] LABS: Basophils # (Auto) 0.0 Thou/mm3 (0.0-0.2); Basophils % (Auto) 1 % (0-2.5); Eosinophils # (Auto) 0.2 Thou/mm3 (0.0-0.5); Eosinophils % (Auto) 4 % (0-10); Hematocrit 35.1 % (36.0-46.0); Hemoglobin 11.4 g/dL (12.0-16.0); Immature Granulocytes Auto 0.02 Thou/mm3 (0.00-0.00); Lymphocytes # (Auto) 1.7 Thou/mm3 (1.0-4.8); Lymphocytes % (Auto) 28 % (10-50); Mean Corpuscular HGB Conc 32.5 g/dl (31.0-37.0); Mean Corpuscular Hemoglobin 31.1 pg (25.0-35.0); Mean Corpuscular Volume 96 fL (80-100); Monocytes # (Auto) 0.7 Thou/mm3 (0.0-0.8); Monocytes % (Auto) 11 % (0-12); Neutrophils # (Auto) 3.4 Thou/mm3 (1.8-7.7); Neutrophils % (Auto) 56 % (37-80); Nucleated Red Blood Cell # 0.00 Thou/mm3 (0.00-0.00); Nucleated Red Blood Cell % 0 /100 WBC (0); Platelet Count 366 Thou/mm3 (140-440); RDW Standard Deviation 51.0 fL (36.4-46.3); Red Blood Count 3.67 Miln/mm3 (4.00-5.20); White Blood Count 6.1 Thou/mm3 (3.6-11.0)
[2024-10-16 06:37] LABS: Alanine Aminotransferase 8 U/L (10-49); Albumin, Serum 3.6 gm/dL (3.4-4.8); Albumin/Globulin Ratio 1.8 (1.2-2.2); Alkaline Phosphatase 72 U/L (46-116); Anion Gap 8 (7-16); Aspartate Amino Transferase 12 U/L (0-34); BUN/Creatinine Ratio 28 Ratio (12-20); Bilirubin,Total 0.5 mg/dL (0.3-1.2); Blood Urea Nitrogen 22 mg/dL (9-23); Calcium 8.8 mg/dL (8.3-10.6); Calcium (Corrected) 9.1 mg/dL (8.5-10.1); Carbon Dioxide 26.6 mMol/L (20.0-31.0); Chloride 109 mMol/L (98-107); Creatinine (Component) 0.8 mg/dL (0.6-1.3); Estimated Creatinine Clearance 40.7 mL/min (>60); Globulin 2.0 gm/dL (2.3-3.5); Glucose 121 mg/dL (74-106); Magnesium 2.0 mg/dL (1.6-2.6); Osmolality,Calculated 291 (275-295); Phosphorous 2.9 mg/dL (2.4-5.1); Potassium 4.0 mMol/L (3.4-5.1); Sodium 144 mMol/L (136-145); Total Protein 5.6 gm/dL (5.7-8.2); eGFR > 60 See Note
[2024-10-16] MEDS: AMIODARONE HCL 200 MG TABLET PO ×2 (09:12→21:08)
[2024-10-16] MEDS: PANTOPRAZOLE 40 MG TABLET PO (09:12)
[2024-10-16] MEDS: APIXABAN 2.5 MG TABLET PO ×2 (09:12→21:08)
[2024-10-16] MEDS: cefTRIAXone/D5w 1gm IV premix 1 GM/50 ML BAG IV (09:12)
--- NOTE | 2024-10-16 13:30 | PD.RESPRO ---
Documentation for date of: 10/16/24 Exam Vital Signs Temp Pulse Resp BP Pulse Ox O2 Del Method 97.9 F 74 25 H 115/68 95 Room Air 10/16/24 12:00 10/16/24 12:00 10/16/24 12:00 10/16/24 12:00 10/16/24 12:00 10/16/24 12:00 Objective Labs 10/16/24 05:12 10/16/24 05:12 Labs: Laboratory Results - last 24 hr 10/16/24 05:12 WBC 6.1 RBC 3.67 L Hgb 11.4 L Hct 35.1 L MCV 96 MCH 31.1 MCHC 32.5 RDW Std Deviation 51.0 H Plt Count 366 Neut % (Auto) 56 Lymph % (Auto) 28 [place] % (Auto) 11 Eos % (Auto) 4 Baso % (Auto) 1 Neut # (Auto) 3.4 Lymph # (Auto) 1.7 [place] # (Auto) 0.7 Eos # (Auto) 0.2 Baso # (Auto) 0.0 Immature Gran # (Auto) 0.02 H Absolute Nucleated RBC 0.00 Immature Gran % 0 Nucleated RBC % 0 Sodium 144 Potassium 4.0 Chloride 109 H Carbon Dioxide 26.6 Anion Gap 8 BUN 22 Creatinine 0.8 Estim Creat Clear Calc 40.7 L eGFR > 60 BUN/Creatinine Ratio 28 H Glucose 121 H Calculated Osmolality 291 Calcium 8.8 Corrected Calcium 9.1 Phosphorus 2.9 Magnesium 2.0 Total Bilirubin 0.5 AST 12 ALT 8 L Alkaline Phosphatase 72 Total Protein 5.6 L Albumin 3.6 Globulin 2.0 L Albumin/Globulin Ratio 1.8 Quality Measures Quality Measures none Assessment & Plan Assessment Current Active Medications: Generic Name Dose Route Start Last Admin Trade Name Freq PRN Reason Stop Dose Admin Acetaminophen 650 mg 10/14/24 14:30 Acetaminophen 325 Mg Tablet PO 11/13/24 14:29 Q6H PRN Fever >101.5 Acetaminophen 650 mg 10/14/24 14:30 Acetaminophen 325 Mg Tablet PO 11/13/24 14:29 Q6H PRN PAIN SCALE 1-3 (mild Amiodarone HCl 200 mg 10/14/24 21:00 10/16/24 09:12 Amiodarone Hcl 200 Mg Tablet PO 11/13/24 20:59 200 mg BID [place] Administration Apixaban 2.5 mg 10/14/24 21:00 10/16/24 09:12 Apixaban 2.5 Mg Tablet PO 11/13/24 20:59 2.5 mg BID [place] Administration Diltiazem HCl 60 mg 10/15/24 17:00 10/16/24 11:44 Diltiazem 30 Mg Tablet PO 11/14/24 16:59 60 mg QID [place] Administration Ceftriaxone Sodium/Dextrose 1 gm in 50 mls @ 100 mls/hr 10/16/24 09:00 10/16/24 09:12 Rocephin/D5w 1gm Iv Premix IV 10/23/24 08:59 100 mls/hr QDAY [place] Administration Sodium Chloride 1,000 mls @ 60 mls/hr 10/15/24 10:30 10/16/24 03:07 Ns IV 11/14/24 10:29 60 mls/hr .[id number] [place] Administration Pantoprazole Sodium 40 mg 10/14/24 15:00 10/16/24 09:12 Pantoprazole 40 Mg Tablet PO 11/13/24 14:59 40 mg QDAY [place] Administration
--- NOTE | 2024-10-16 14:46 | PD.RESDS ---
Planned Discharge Date 10/16/24 DS: Providers Provider Date of admission: 10/14/24 14:30 Primary care physician: Dov Guerrero MD Admitting Provider: Jose Mendez MD Attending Provider on Admission: Jose Mendez MD Consults: 10/14/24 14:37 Consult to Cardiology Stat Comment: afib with RVR Consulting Provider: Katie Rey 10/14/24 23:52 Referral Infection Control Routine Comment: Reason for Infection Control Referral: Readmitted within 30 days Attending Provider on DC: Dr. Mendez Discharging Provider: Dr. Mendez Hospital Course Hospital Course Hospital course: Pt is seen at bedside, daughter is also at bedside. Pt denies any shortness of breath, chest pain or palpitations. However pt remains in a-fib with Rapid HR with HR between 130's 150. Currently pt is transitioned to oral amiodarone 200mg BID with diltiazam 30mg QID. Pt echo is with in normal limits, therefore will increase diltiazam to 60mg QID. Continue to monitor telemetry closely. otherwise labs are largely unremarkable, Pt has no other complaints. Time Spent with Patient Time attestation: Total time spent providing and/or coordinating discharge services: Time spent: Greater than 30 minutes Exam Vital Signs Temp Pulse Resp BP Pulse Ox O2 Del Method 97.9 F 74 25 H 115/68 95 Room Air 10/16/24 12:00 10/16/24 12:00 10/16/24 12:00 10/16/24 12:00 10/16/24 12:00 10/16/24 12:00 Discharge Plan Plan Patient Disposition: HOME (Self Care) Care Plan Goals: Follow-up with PCP within 1-2 weeks of discharge. Follow-up with Dr. Rey (Cardiology) within 1 week of discharge. Continue taking medications as prescribed below. Return to Emergency Room if symptoms persist, worsen, or new symptoms develop. Prescriptions/Referrals Prescriptions/Med Rec: New diltiazem HCl 60 mg tablet 60 mg PO QID 30 Days Qty: 120 0RF Continued chlorpheniramine maleate [Allergy (chlorpheniramine)] 4 mg Tablet 4 mg PO HSPRN PRN (Reason: Allergy Symptoms) Rx Instructions: do not exceed 2 doses per 24 hrs melatonin 1 mg Tablet 3 mg PO HS PRN (Reason: Insomnia) [id number]-minerals 18-0.4 mg Tablet 1 tab PO QDAY sennosides [Laxative (sennosides)] 8.6 mg tablet 8.6 mg PO QDAY PRN (Reason: constipation) 14 Days Qty: 14 0RF amiodarone 200 mg Tablet 200 mg PO QDAY Qty: 30 0RF apixaban 2.5 mg tablet 2.5 mg PO BID Qty: 30 0RF lactulose 10 gram/15 mL solution 15 ml PO QDAY MDD 3 PRN (Reason: constipation) Qty: 1200 0RF Rx Instructions: take as needed for constipation, Titrate if bowel movement is more than 2-3 daily Discontinued metoprolol tartrate 25 mg Tablet 25 mg PO BID 30 Days Qty: 60 0RF nitrofurantoin monohyd/m-cryst [Macrobid] 100 mg capsule 100 mg PO BID 7 Days Qty: 14 0RF Rx Instructions: must administer with a meal/food No Action diltiazem HCl 30 mg Tablet 30 mg PO Q8HR 30 Days Qty: 90 0RF Referrals: Dov Guerrero MD [Primary Care Provider] - Patient/Caregiver Discharge Instructions Print Language: Icelandic Stand Alone Forms: Marily Award Info., Patient Portal Info Letter Attestestation Attestation I discussed with and supervised the resident physician who took care of this patient. I agree with the assessment and discharge plan as above. Patient should follow up with their PCP as scheduled. Return to the emergency room for recurrent symptoms.
--- NOTE | 2024-10-16 16:45 | PC.SS ---
HEMATOLOGY NURSE EDUCATOR met with patient to confirm discharge plan. Patient informed HEMATOLOGY NURSE EDUCATOR plan to return home at the time of discharge. Patient informed HEMATOLOGY NURSE EDUCATOR that she will have patient care services available. Patient receptive to home health services no preferred agency identified. HEMATOLOGY NURSE EDUCATOR discussed SNF option, patient declined. Follow up with patient's daughter to be conducted to determine patient will have assistance upon return home. If patient returns to [facility] authorization will need to be obtained per admissions staff.
--- NOTE | 2024-10-16 18:25 | ESPR_ITS ---
<Statement entered by Katie Rey MD - 10/18/24 00:19> I personally examined the patient in room 275 appears to be clinically stable evaluate the patient with Dr. Potts agree with the treatment plan recommendation as documented rate control strategy for now and low-dose Eliquis rate control with diltiazem CD. Patient will be followed as an outpatient by me. Documentation for date of: 10/17/24 Subjective Subjective Interval history: Patient is seen and examined at bedside No acute overnight events and patient denies any other complaints vitals are stable and patient is still in atrial fibrillation with controlled ventricular rate Recommended to continue Eliquis 2.5 Mg twice daily, amiodarone 200 Mg twice daily Change diltiazem 60 Mg p.o. 4 times daily to diltiazem to 240 Mg CD for better compliance Recommended to keep potassium greater than 4 and magnesium greater than 2 Patient is emotional about going to rehab and wants to go home, but daughter wishes to place the patient in rehab. greeter guest services are involved in the care Exam Vital Signs Temp Pulse Resp BP Pulse Ox O2 Del Method 97.5 F 66 14 120/58 L 95 Room Air 10/17/24 08:00 10/17/24 08:00 10/17/24 08:00 10/17/24 08:00 10/17/24 08:00 10/17/24 08:00 Narrative Exam General: Awake. Appears poorly nourished HEENT: Normocephalic, atraumatic, mucous membranes moist. Heart: IRRegular rate and rhythm, no murmurs. Lungs: Clear to auscultation with no wheezing or crackles. Abdomen: Soft, nondistended, nontender, positive bowel sounds. ?No guarding or rebound tenderness. Neurologic: Alert and oriented x3, no gross neurological deficit, and patient able to move all 4 extremities. Extremities: No edema. Skin: No rash or ecchymoses. Objective Labs 10/17/24 04:50 10/17/24 04:50 Labs: Laboratory Results - last 24 hr 10/17/24 04:50 WBC 5.5 RBC 3.65 L Hgb 11.2 L Hct 33.3 L MCV 91 MCH 30.7 MCHC 33.6 RDW Std Deviation 49.2 H Plt Count 328 D Neut % (Auto) 53 Lymph % (Auto) 30 [place] % (Auto) 12 Eos % (Auto) 4 Baso % (Auto) 1 Neut # (Auto) 2.9 Lymph # (Auto) 1.7 [place] # (Auto) 0.6 Eos # (Auto) 0.2 Baso # (Auto) 0.0 Immature Gran # (Auto) 0.01 H Absolute Nucleated RBC 0.00 Immature Gran % 0 Nucleated RBC % 0 Sodium 144 Potassium 4.0 Chloride 108 H Carbon Dioxide 27.5 Anion Gap 9 BUN 12 Creatinine 0.9 Estim Creat Clear Calc 36.2 L eGFR > 60 BUN/Creatinine Ratio 13 Glucose 118 H Calculated Osmolality 287 Calcium 8.3 Corrected Calcium 8.9 Phosphorus 2.9 Magnesium 1.8 Total Bilirubin 0.5 AST 14 ALT 9 L Alkaline Phosphatase 66 Total Protein 5.4 L Albumin 3.3 L Globulin 2.1 L Albumin/Globulin Ratio 1.6 Quality Measures Quality Measures none Advance care planning discussed with:: patient Assessment & Plan Assessment Current Active Medications: Generic Name Dose Route Start Last Admin Trade Name Freq PRN Reason Stop Dose Admin Acetaminophen 650 mg 10/14/24 14:30 Acetaminophen 325 Mg Tablet PO 11/13/24 14:29 Q6H PRN Fever >101.5 Acetaminophen 650 mg 10/14/24 14:30 Acetaminophen 325 Mg Tablet PO 11/13/24 14:29 Q6H PRN PAIN SCALE 1-3 (mild Amiodarone HCl 200 mg 10/14/24 21:00 10/16/24 21:08 Amiodarone Hcl 200 Mg Tablet PO 11/13/24 20:59 200 mg BID [place] Administration Apixaban 2.5 mg 10/14/24 21:00 10/16/24 21:08 Apixaban 2.5 Mg Tablet PO 11/13/24 20:59 2.5 mg BID [place] Administration Diltiazem HCl 240 mg 10/17/24 09:00 Diltiazem Cd 120 Mg Capcr PO 11/16/24 08:59 QDAY [place] Magnesium Sulfate 2 gm in 50 mls @ 25 mls/hr 10/17/24 07:28 Magnesium Sulfate Ivpb IV 10/17/24 09:27 X1 ONE Nitrofurantoin Macrocrystals 100 mg 10/17/24 09:00 Nitrofurantoin Macro 100 Mg Capsule PO 10/24/24 08:59 BID [place] Pantoprazole Sodium 40 mg 10/14/24 15:00 10/16/24 09:12 Pantoprazole 40 Mg Tablet PO 11/13/24 14:59 40 mg QDAY [place] Administration Plan A 89-year-old female with significant past medical history of cataracts, gastric ulcer, carpal tunnel syndrome and recently diagnosed with atrial fibrillation, recent discharge from hospital on 10/11/2024 presented to the hospital with chief complaints of pain in the lower abdomen and cardiology is consulted for atrial fibrillation with rapid ventricular rate # Atrial fibrillation with rapid ventricular rate ---> Controlled ventricular rate - Patient presented to the hospital with lower abdominal pain - On examination, found to have atrial fibrillation with rapid ventricle rate - Vitals are stable. On physical examination, patient appears dehydrated - EKG showed atrial fibrillation with rapid ventricular rate, heart rate around 140 - Labs are significant for mild leukocytosis, ESR 54, CRP 8, BUN 31, creatinine 1, TSH 5.76, free T41.44 - Echo done on 10/04/2024 showed Normal LV. Estimated EF 55%. Mild RVE. RVSP 16mmHg. RAP 10mmHg. Severe LAE. Dual Jet Mild MR. Mild to Moderate TR. Small PFO. - [id number] or is 3, has bled score is 1 Plan - Patient was started on diltiazem drip in the ED - Recommended to continue Eliquis 2.5 Mg twice daily, amiodarone 200 Mg twice daily - Change diltiazem 60 Mg p.o. 4 times daily to diltiazem to 240 Mg CD for better compliance - Recommended to keep potassium greater than 4 and magnesium greater than 2 #UTI #Cystitis - GNR management as per primary care Patient plan of care was discussed with the [employer]ottler Operator, Dr. Candido Bynum, PGY2
--- NOTE | 2024-10-16 19:32 | ESPR_ITS ---
<Statement entered by Sukumar Munoz MD - 10/16/24 21:13> I have reviewed the note and agree with the resident's assessment & plan with exceptions as below. I have personally reviewed labs, imaging, home meds/prior records, examined the patient, formulated and discussed management plan with the IM team. Pt currently improving, afib rate controlled at this time. Will d/c with Cardizem 240 mg CD and Eliquis. Pt pending PT eval upon d/c in addition to bladder training as well. E coli UTI pansensitive, will transition to Oral Macrobid starting tomorrow. Repeat hematology, electrolytes and chemistry in AM. Sukumar Munoz, PGY-2 Internal Medicine Documentation for date of: 10/16/24 Subjective Subjective Interval history: Patient seen at bedside. No overnight events. Patient not complaining of new sx. No palpitations, no chest pain, no shortness of breath, no fevers, no nausea, no vomiting. Feels well. Spoke with her daughter who lives in [place] and is the decision-maker for the patient, says that patient cannot go back home to [facility] due to concerns regarding care that patient received. Daughter requested that physical therapy be involved for strength and balance and social therapy be involved to find a suitable place. Daughter mentions patient at baseline walks with a walker. Exam Vital Signs Temp Pulse Resp BP Pulse Ox O2 Del Method 97.5 F 83 24 H 121/71 96 Room Air 10/16/24 16:00 10/16/24 16:27 10/16/24 16:00 10/16/24 16:27 10/16/24 16:00 10/16/24 16:00 Narrative Exam General: Awake. Fraile appearing. HEENT: Normocephalic, atraumatic, mucous membranes moist. Heart: S1-S2, no murmurs appreciated, no rubs/gallops Lungs: Clear to auscultation with no wheezing or crackles. Abdomen: Soft, nondistended, nontender, positive bowel sounds. No guarding or rebound tenderness. Neurologic: Alert and oriented x3, no gross neurological deficit, and patient able to move all 4 extremities. Extremities: No peripheral edema. Skin: No rash or ecchymoses. Objective Labs 10/17/24 04:50 10/17/24 04:50 Labs: Laboratory Results - last 24 hr 10/16/24 05:12 WBC 6.1 RBC 3.67 L Hgb 11.4 L Hct 35.1 L MCV 96 MCH 31.1 MCHC 32.5 RDW Std Deviation 51.0 H Plt Count 366 Neut % (Auto) 56 Lymph % (Auto) 28 [place] % (Auto) 11 Eos % (Auto) 4 Baso % (Auto) 1 Neut # (Auto) 3.4 Lymph # (Auto) 1.7 [place] # (Auto) 0.7 Eos # (Auto) 0.2 Baso # (Auto) 0.0 Immature Gran # (Auto) 0.02 H Absolute Nucleated RBC 0.00 Immature Gran % 0 Nucleated RBC % 0 Sodium 144 Potassium 4.0 Chloride 109 H Carbon Dioxide 26.6 Anion Gap 8 BUN 22 Creatinine 0.8 Estim Creat Clear Calc 40.7 L eGFR > 60 BUN/Creatinine Ratio 28 H Glucose 121 H Calculated Osmolality 291 Calcium 8.8 Corrected Calcium 9.1 Phosphorus 2.9 Magnesium 2.0 Total Bilirubin 0.5 AST 12 ALT 8 L Alkaline Phosphatase 72 Total Protein 5.6 L Albumin 3.6 Globulin 2.0 L Albumin/Globulin Ratio 1.8 Quality Measures Quality Measures none Advance care planning discussed with:: patient Assessment & Plan Assessment Current Active Medications: Generic Name Dose Route Start Last Admin Trade Name Freq PRN Reason Stop Dose Admin Acetaminophen 650 mg 10/14/24 14:30 Acetaminophen 325 Mg Tablet PO 11/13/24 14:29 Q6H PRN Fever >101.5 Acetaminophen 650 mg 10/14/24 14:30 Acetaminophen 325 Mg Tablet PO 11/13/24 14:29 Q6H PRN PAIN SCALE 1-3 (mild Amiodarone HCl 200 mg 10/14/24 21:00 10/16/24 09:12 Amiodarone Hcl 200 Mg Tablet PO 11/13/24 20:59 200 mg BID [place] Administration Apixaban 2.5 mg 10/14/24 21:00 10/16/24 09:12 Apixaban 2.5 Mg Tablet PO 11/13/24 20:59 2.5 mg BID [place] Administration Diltiazem HCl 60 mg 10/15/24 17:00 10/16/24 16:27 Diltiazem 30 Mg Tablet PO 11/14/24 16:59 60 mg QID [place] Administration Ceftriaxone Sodium/Dextrose 1 gm in 50 mls @ 100 mls/hr 10/16/24 09:00 10/16/24 18:26 Rocephin/D5w 1gm Iv Premix IV 10/23/24 08:59 Infused QDAY [place] Infusion Sodium Chloride 1,000 mls @ 60 mls/hr 10/15/24 10:30 10/16/24 18:29 Ns IV 11/14/24 10:29 60 mls/hr .[id number] [place] Administration Pantoprazole Sodium 40 mg 10/14/24 15:00 10/16/24 09:12 Pantoprazole 40 Mg Tablet PO 11/13/24 14:59 40 mg QDAY [place] Administration Plan Assessment A 89-year-old female with significant past medical history of cataracts, gastric ulcer, carpal tunnel syndrome and recently diagnosed of atrial fibrillation, recent discharge from hospital on 10/11/2024 admitted to hospital due to UTI and atrial fibrillation with RVR. # Atrial fibrillation with rapid ventricular rate, improving - Patient presented to the hospital with lower abdominal pain - On examination, found to have atrial fibrillation with rapid ventricle rate - EKG showed atrial fibrillation with rapid ventricular rate, heart rate around 140 - Labs on admission: mild leukocytosis, ESR 54, CRP 8, BUN 31, creatinine 1, TSH 5.76, free T41.44 - Echo done on 10/04/2024 showed Normal LV. Estimated EF 55%. Mild RVE. RVSP 16mmHg. RAP 10mmHg. Severe LAE. Dual Jet Mild MR. Mild to Moderate TR. Small PFO. - [id number] is 3, HASBLED score is 1 Plan - Cardiology signed off - Oral diltiazem 60 mg orally 4 times daily, will transition to Cardizem 240 CD mg by mouth starting tomorrow - Oral amiodarone 200 mg BID - Restarted Eliquis 2.5 mg twice daily - Telemetry - Will adjust dose of the medication as needed - Keep potassium greater than 4 and magnesium greater than 2 #E Coli UTI #Cystitis -E. coli #Leukocytosis, resolved Patient came in with severe lower abdominal pain, decreased urination, and dysuria. Abdo exam: soft, nondistended, nontender, positive bowel sounds. No guarding or rebound tenderness. Patient does not appear toxic. UA: +leuk, WBC 11 Urine Cx 10/14/2024 E. coli positive, pansensitive Plan Davila cath in-situ - monitor output Patient needs bladder training Ceftriaxone 1g IV daily discontinued yesterday, oral abx starting tomorrow to complete tx Health Maintenance: Diet: low sodium GI prophylaxis: pantoprazole DVT prophylaxis: Apixaban 2.5 mg twice daily Antibiotics: Ceftriaxone CODE STATUS: DNR Disposition: Telemetry Case discussed with my attending Dr. Mendez and my senior attending Dr. Tammy Vanessa MD PGY-1 Attending Provider Attestation/Addendum Patient seen and evaluated with hose staff. Heart rate improved. She is normotensive. UTI symptoms improved with antibiotics. Discussed with IM residents agree with plan as above.
[2024-10-17] VITALS (10 sets, daily range): BP systolic 99–120; BP diastolic 52–62; PULSE 51–87; RESP 14–95; TEMP 36.2–36.6; O2SAT 95–97; BMI 20.3; BMI 13.0
[2024-10-17 06:16] LABS: Basophils # (Auto) 0.0 Thou/mm3 (0.0-0.2); Basophils % (Auto) 1 % (0-2.5); Eosinophils # (Auto) 0.2 Thou/mm3 (0.0-0.5); Eosinophils % (Auto) 4 % (0-10); Hematocrit 33.3 % (36.0-46.0); Hemoglobin 11.2 g/dL (12.0-16.0); Immature Granulocytes Auto 0.01 Thou/mm3 (0.00-0.00); Lymphocytes # (Auto) 1.7 Thou/mm3 (1.0-4.8); Lymphocytes % (Auto) 30 % (10-50); Mean Corpuscular HGB Conc 33.6 g/dl (31.0-37.0); Mean Corpuscular Hemoglobin 30.7 pg (25.0-35.0); Mean Corpuscular Volume 91 fL (80-100); Monocytes # (Auto) 0.6 Thou/mm3 (0.0-0.8); Monocytes % (Auto) 12 % (0-12); Neutrophils # (Auto) 2.9 Thou/mm3 (1.8-7.7); Neutrophils % (Auto) 53 % (37-80); Nucleated Red Blood Cell # 0.00 Thou/mm3 (0.00-0.00); Nucleated Red Blood Cell % 0 /100 WBC (0); Platelet Count 328 Thou/mm3 (140-440); RDW Standard Deviation 49.2 fL (36.4-46.3); Red Blood Count 3.65 Miln/mm3 (4.00-5.20); White Blood Count 5.5 Thou/mm3 (3.6-11.0)
[2024-10-17 07:03] LABS: Alanine Aminotransferase 9 U/L (10-49); Albumin, Serum 3.3 gm/dL (3.4-4.8); Albumin/Globulin Ratio 1.6 (1.2-2.2); Alkaline Phosphatase 66 U/L (46-116); Anion Gap 9 (7-16); Aspartate Amino Transferase 14 U/L (0-34); BUN/Creatinine Ratio 13 Ratio (12-20); Bilirubin,Total 0.5 mg/dL (0.3-1.2); Blood Urea Nitrogen 12 mg/dL (9-23); Calcium 8.3 mg/dL (8.3-10.6); Calcium (Corrected) 8.9 mg/dL (8.5-10.1); Carbon Dioxide 27.5 mMol/L (20.0-31.0); Chloride 108 mMol/L (98-107); Creatinine (Component) 0.9 mg/dL (0.6-1.3); Estimated Creatinine Clearance 36.2 mL/min (>60); Globulin 2.1 gm/dL (2.3-3.5); Glucose 118 mg/dL (74-106); Magnesium 1.8 mg/dL (1.6-2.6); Osmolality,Calculated 287 (275-295); Phosphorous 2.9 mg/dL (2.4-5.1); Potassium 4.0 mMol/L (3.4-5.1); Sodium 144 mMol/L (136-145); Total Protein 5.4 gm/dL (5.7-8.2); eGFR > 60 See Note
[2024-10-17] MEDS: Magnesium Sulfate 2 GM Ivpb 2 GM/50 ML BAG IV (09:23)
[2024-10-17] MEDS: APIXABAN 2.5 MG TABLET PO ×2 (09:23→21:16)
[2024-10-17] MEDS: PANTOPRAZOLE 40 MG TABLET PO (09:23)
[2024-10-17] MEDS: DILTIAZEM CD 120 MG CAPCR 240 MG PO (09:24)
[2024-10-17] MEDS: AMIODARONE HCL 200 MG TABLET PO ×2 (09:24→21:16)
[2024-10-17] MEDS: NITROFURANTOIN MACRO 100 MG CAPSULE PO ×2 (09:24→21:16)
--- NOTE | 2024-10-17 12:09 | ESPR_ITS ---
<Statement entered by Katie Rey MD - 10/18/24 00:23> I personally evaluated examined this patient appears to be clinically doing better today planning for discharge patient with A-fib rate controlled well blood pressure is normal tolerated Cardizem very well along with Eliquis will continue to monitor the patient as an outpatient following discharge agree with the treatment plan recommendation as documented with Dr. Amezcua Documentation for date of: 10/17/24 Subjective Subjective Interval history: Patient is seen and examined at bedside No acute overnight events. Denies any other complaints. Pending placement. Vitals are stable. Patient is still in atrial fibrillation with controlled ventricular rate On physical examination, noted irregular heart rate and patient appears overall chronically malnourished Recommended to continue Eliquis 2.5 Mg twice daily, amiodarone 200 Mg twice daily, diltiazem 240 Mg once daily Keep potassium greater than 4 and magnesium greater than 2 Talked with patient's family [daughter] at the bedside, explained about the risks and benefits of Eliquis and also explained about patient's atrial fibrillation. Answered all questions to their satisfaction Exam Vital Signs Temp Pulse Resp BP Pulse Ox O2 Del Method 97.3 F 61 22 H 108/56 L 95 Room Air 10/17/24 12:00 10/17/24 12:00 10/17/24 12:00 10/17/24 12:00 10/17/24 12:00 10/17/24 12:00 Narrative Exam General: Awake. Appears poorly nourished HEENT: Normocephalic, atraumatic, mucous membranes moist. Heart: IRRegular rate and rhythm, no murmurs. Lungs: Clear to auscultation with no wheezing or crackles. Abdomen: Soft, nondistended, nontender, positive bowel sounds. ?No guarding or rebound tenderness. Neurologic: Alert and oriented x3, no gross neurological deficit, and patient able to move all 4 extremities. Extremities: No edema. Skin: No rash or ecchymoses. Objective Labs 10/17/24 04:50 10/17/24 04:50 Labs: Laboratory Results - last 24 hr 10/17/24 04:50 WBC 5.5 RBC 3.65 L Hgb 11.2 L Hct 33.3 L MCV 91 MCH 30.7 MCHC 33.6 RDW Std Deviation 49.2 H Plt Count 328 D Neut % (Auto) 53 Lymph % (Auto) 30 Tate % (Auto) 12 Eos % (Auto) 4 Baso % (Auto) 1 Neut # (Auto) 2.9 Lymph # (Auto) 1.7 Tate # (Auto) 0.6 Eos # (Auto) 0.2 Baso # (Auto) 0.0 Immature Gran # (Auto) 0.01 H Absolute Nucleated RBC 0.00 Immature Gran % 0 Nucleated RBC % 0 Sodium 144 Potassium 4.0 Chloride 108 H Carbon Dioxide 27.5 Anion Gap 9 BUN 12 Creatinine 0.9 Estim Creat Clear Calc 36.2 L eGFR > 60 BUN/Creatinine Ratio 13 Glucose 118 H Calculated Osmolality 287 Calcium 8.3 Corrected Calcium 8.9 Phosphorus 2.9 Magnesium 1.8 Total Bilirubin 0.5 AST 14 ALT 9 L Alkaline Phosphatase 66 Total Protein 5.4 L Albumin 3.3 L Globulin 2.1 L Albumin/Globulin Ratio 1.6 Quality Measures Quality Measures none Advance care planning discussed with:: patient and child Assessment & Plan Assessment Current Active Medications: Generic Name Dose Route Start Last Admin Trade Name Freq PRN Reason Stop Dose Admin Acetaminophen 650 mg 10/14/24 14:30 Acetaminophen 325 Mg Tablet PO 11/13/24 14:29 Q6H PRN Fever >101.5 Acetaminophen 650 mg 10/14/24 14:30 Acetaminophen 325 Mg Tablet PO 11/13/24 14:29 Q6H PRN PAIN SCALE 1-3 (mild Amiodarone HCl 200 mg 10/14/24 21:00 10/17/24 09:24 Amiodarone Hcl 200 Mg Tablet PO 11/13/24 20:59 200 mg BID GEORGIANA Administration Apixaban 2.5 mg 10/14/24 21:00 10/17/24 09:23 Apixaban 2.5 Mg Tablet PO 11/13/24 20:59 2.5 mg BID GEOR[place]NA Administration Diltiazem HCl 240 mg 10/17/24 09:00 10/17/24 09:24 Diltiazem Cd 120 Mg Capcr PO 11/16/24 08:59 240 mg QDAY GEORGIANA Administration Nitrofurantoin Macrocrystals 100 mg 10/17/24 09:00 10/17/24 09:24 Nitrofurantoin Macro 100 Mg Capsule PO 10/24/24 08:59 100 mg BID GEORGIANA Administration Pantoprazole Sodium 40 mg 10/14/24 15:00 10/17/24 09:23 Pantoprazole 40 Mg Tablet PO 11/13/24 14:59 40 mg QDAY GEORGIANA Administration Plan A 89-year-old female with significant past medical history of cataracts, gastric ulcer, carpal tunnel syndrome and recently diagnosed with atrial fibrillation, recent discharge from hospital on 10/11/2024 presented to the hospital with chief complaints of pain in the lower abdomen and cardiology is consulted for atrial fibrillation with rapid ventricular rate # Atrial fibrillation with rapid ventricular rate ---> Controlled ventricular rate - Patient presented to the hospital with lower abdominal pain - On examination, found to have atrial fibrillation with rapid ventricle rate - Vitals are stable. On physical examination, patient appears dehydrated - EKG showed atrial fibrillation with rapid ventricular rate, heart rate around 140 - Labs are significant for mild leukocytosis, ESR 54, CRP 8, BUN 31, creatinine 1, TSH 5.76, free T41.44 - Echo done on 10/04/2024 showed Normal LV. Estimated EF 55%. Mild RVE. RVSP 16mmHg. RAP 10mmHg. Severe LAE. Dual Jet Mild MR. Mild to Moderate TR. Small PFO. - [id number] or is 3, has bled score is 1 Plan - Patient was started on diltiazem drip in the ED - Recommended to continue Eliquis 2.5 Mg twice daily, amiodarone 200 Mg twice daily - Change diltiazem 60 Mg p.o. 4 times daily to diltiazem to 240 Mg CD for better compliance - Recommended to keep potassium greater than 4 and magnesium greater than 2 #UTI #Cystitis - GNR management as per primary care Patient plan of care was discussed with the Engraver Tender, Dr. Candido Bynum, PGY2
--- NOTE | 2024-10-17 12:15 | PC.SS ---
SS was informed by PT Shon, pt refused SNF, DC plan home with HH. Pt will need a 3in1 BSC and FWW. SS pending PT documentation to submit referral.
--- NOTE | 2024-10-17 13:07 | ESDS_ITS ---
Planned Discharge Date 10/17/24 DS: Providers Provider Date of admission: 10/14/24 14:30 Primary care physician: Dov Guerrero MD Admitting Provider: Jose Mendez MD Attending Provider on Admission: Justin Metcalf MD Consults: 10/14/24 14:37 Consult to Cardiology Stat Comment: afib with RVR Consulting Provider: Katie Rey 10/14/24 23:52 Referral Infection Control Routine Comment: Reason for Infection Control Referral: Readmitted within 30 days 10/16/24 18:36 Referral Physical Therapy Routine Comment: Physician Instructions: Attending Provider on DC: Justin Metcalf MD Discharging Provider: Justin Metcalf MD DS: Diagnosis Problem List Completed Was Problem List Reviewed/Reconciled?: Yes Hospital Course Hospital Course Hospital course: 89-year-old female with significant past medical history of cataracts, gastric ulcer, carpal tunnel syndrome and recently diagnosed atrial fibrillation on recent admission, readmitted due atrial fibrillation with RVR secondary to UTI. Patient's chief complaint was lower abdominal pain. EKG showed atrial fibrillation with rapid ventricular rate, heart rate around 140. Labs on admission: mild leukocytosis, ESR 54, CRP 8, BUN 31, creatinine 1, TSH 5.76, free T41.44. [id number] is 3, HASBLED score is 1. Patient was started on diltiazem drip in the ED, cardiology was consulted and adjusted her diltiazem dosing accordingly. Patient's urine Cx grew E. coli, pansensitive. Patient received IV ceftriaxone x 3 days. At time of discharge patient's diltiazem dose was changed to diltiazem to 240 Mg CD for better compliance. Patient to continue amiodarone 200 mg twice daily, Eliquis 2.5 mg twice daily. Patient to continue nitrofurantoin 100 mg twice daily for 2 more days. Patient's metoprolol 25 mg was stopped. Patient stable at time of discharge. Discharge instructions: Follow-up with PCP within 1-2 weeks of discharge. * Follow-up with Dr. Rey (Cardiology) within 1 week of discharge. * Continue taking DILTIAZEM 60 mg 4 times daily (dose adjusted). * Continue taking NITROFURANTOIN 100 mg twice daily for 2 more days. * STOP taking METOPROLOL 25 mg twice daily. * STOP taking DILTIAZEM 30 mg daily. * Continue taking medications as prescribed below. * Return to Emergency Room if symptoms persist, worsen, or new symptoms develop. Admission problems: #Atrial fibrillation with rapid ventricular rate #Cystitis - E. coli #Leukocytosis Patient seen and care discussed with my attending physician, Dr. Metcalf and my senior resident, Dr. Tammy Vanessa MD PGY-1 Time Spent with Patient Time attestation: Total time spent providing and/or coordinating discharge services: Time spent: Less than 30 minutes Home Health Home Health Referral Orders: 10/17/24 08:47 Home Health Referral Routine Reason For Exam: Generalized weakness Home-Bound The patient must either because of illness or injury, need the aid of supportive devices such as crutches, canes, wheelchairs, and walkers; the use of special transportation; or the assistance of another person in order to leave their place of residence; OR have a condition such that leaving his or her home is medically contraindicated. In addition, the patient also meets the following criteria: patient is normally unable to leave the home and leaving home requires considerable taxing effort. Addendum to Home Health Certification Practitioner's Certification: I certify that the patient has been under my care in the hospital and the care of attending physician (see below). We had a [id number] encounter on (see date below). My clinical findings indicate that the patient is home bound per the above criteria and the Home Health Services noted in these orders are medically necessary. The primary reason for the [id number]-[id number] encounter is related to the fact that the patient requires home health services. Date Certifying [id number] Physician Encounter: 10/14/24 Physician's Name who will Assume Oversight for Services: Dov Guerrero Physician's Phone No.who will Assume Oversight for Service: [facility] - Community Resources: No PT to Evaluate: Yes PT to evaluate and provide a treatmnet plan to increase patient's mobility and strength. Wound Care: No IV Therapy: No RN Safety Evaluation: Yes RN to evaluate and create a plan of care that will produce positive outcomes. Palliative Treatment: No Palliative treatment and evaluate the need for hospice. Home Health Aide - Personal Care: No Home Health Aide to assist with any ADL's. Exam Vital Signs Temp Pulse Resp BP Pulse Ox O2 Del Method 97.3 F 61 22 H 108/56 L 95 Room Air 10/17/24 12:00 10/17/24 12:00 10/17/24 12:00 10/17/24 12:00 10/17/24 12:00 10/17/24 12:00 Narrative Exam General: Awake. Fraile appearing. HEENT: Normocephalic, atraumatic, mucous membranes moist. Heart: S1-S2, no murmurs appreciated, no rubs/gallops Lungs: Clear to auscultation with no wheezing or crackles. Abdomen: Soft, nondistended, nontender, positive bowel sounds. No guarding or rebound tenderness. Neurologic: Alert and oriented x3, no gross neurological deficit, and patient able to move all 4 extremities. Extremities: No peripheral edema. Skin: No rash or ecchymoses. Discharge Plan Plan [facility] [place] Patient condition on transfer: Stable Care Plan Goals: * Follow-up with PCP within 1-2 weeks of discharge. * Follow-up with Dr. Rey (Cardiology) within 1 week of discharge. * Continue taking DILTIAZEM 60 mg 4 times daily (dose adjusted). * Continue taking NITROFURANTOIN 100 mg twice daily for 2 more days. * STOP taking METOPROLOL 25 mg twice daily. * STOP taking DILTIAZEM 30 mg daily. * Continue taking medications as prescribed below. * Return to Emergency Room if symptoms persist, worsen, or new symptoms develop. Prescriptions/Referrals Prescriptions/Med Rec: New diltiazem HCl 240 mg capsule,extended release 24hr 240 mg PO QDAY Qty: 30 0RF nitrofurantoin macrocrystal 100 mg capsule 100 mg PO BID Qty: 4 0RF Rx Instructions: must administer with a meal/food Continued chlorpheniramine maleate [Allergy (chlorpheniramine)] 4 mg Tablet 4 mg PO HSPRN PRN (Reason: Allergy Symptoms) Rx Instructions: do not exceed 2 doses per 24 hrs melatonin 1 mg Tablet 3 mg PO HS PRN (Reason: Insomnia) kefqtpoaxore-Ei-azha-minerals 18-0.4 mg Tablet 1 tab PO QDAY sennosides [Laxative (sennosides)] 8.6 mg tablet 8.6 mg PO QDAY PRN (Reason: constipation) 14 Days Qty: 14 0RF apixaban 2.5 mg tablet 2.5 mg PO BID Qty: 30 0RF lactulose 10 gram/15 mL solution 15 ml PO QDAY MDD 3 PRN (Reason: constipation) Qty: 1200 0RF Rx Instructions: take as needed for constipation, Titrate if bowel movement is more than 2-3 daily Changed amiodarone 200 mg Tablet 200 mg PO BID Qty: 60 0RF Discontinued diltiazem HCl 30 mg Tablet 30 mg PO Q8HR 30 Days Qty: 90 0RF metoprolol tartrate 25 mg Tablet 25 mg PO BID 30 Days Qty: 60 0RF nitrofurantoin monohyd/m-cryst [Macrobid] 100 mg capsule 100 mg PO BID 7 Days Qty: 14 0RF Rx Instructions: must administer with a meal/food Referrals: Dov Guerrero MD [Primary Care Provider] - Patient/Caregiver Discharge Instructions Print Language: Thai Stand Alone Forms: Marily Award Info., Patient Portal Info Letter Discharge Order Discharge Orders: Discharge (Routine); Ordered 10/17/24 Ordered By: Ivone Macias Quality Discharge Quality Measures VTE prophylaxis Attestestation Attestation I attest that I was physically present for the evaluation, physical examination, lab and imaging review of the patient with the residents. I discussed the case with the residents and agree with the findings and plans of care as documented above. Justin Metcalf MD
--- NOTE | 2024-10-17 14:51 | PC.PT ---
Patient is safe to ambulate to the bathroom and in the halls with a FWW and 1 staff assist. RN made aware.
--- NOTE | 2024-10-17 14:56 | PC.SS ---
Addendum entered by Joanne Montana 10/18/24 09:43: SS spoke to Zuleima in regards to SNF placement, at this time no accepting facilities in [place], SS extended search to [place], only accepting facility is [facility] in [place]. Zuleima stated pt, will not want to be that far from home. [facility] is also CONSIDERING pt. Zuleima inquired on next plan if SNF isn't an option. SS informed her HH will be ordered for her. PT will see her at home 2-3 times a week. SS also informed her SS will order DME for home as well such as walker and 3in1 BSC. Zuleima requested some time to see if [facility] will accept and for her to look into [facility]. Original Note: SS called pt dtr Zuleima [phone] in regards to updated address for DME. Per Zuleima they wish for pt to go to SNF for rehab for short term. SS informed Zuleima per PT Shon pt was adamant on not gong to SNF. Zuleima stated she does not want to return to [facility]. Open to others. SS explained process, pt will require auth, and referral will be sent today. Once we have options SS will contact her to make a choice. SNF referral was submitted, pending responses. SS also pending PT documentation for auth. SS updated, JAVED Minor
--- NOTE | 2024-10-17 15:35 | PC.SS ---
SS follow up note; SS sent PT notes through [employer]. At the time there are no accepting facilities.
[2024-10-18] VITALS (7 sets, daily range): BP systolic 102–123; BP diastolic 44–63; PULSE 50–79; RESP 16–95; TEMP 36.1–36.3; O2SAT 90–99; BMI 20.3
[2024-10-18] MEDS: NITROFURANTOIN MACRO 100 MG CAPSULE PO (09:03)
[2024-10-18] MEDS: PANTOPRAZOLE 40 MG TABLET PO (09:03)
[2024-10-18] MEDS: APIXABAN 2.5 MG TABLET PO (09:03)
--- NOTE | 2024-10-18 10:28 | PC.SS ---
Addendum entered by Joanne Montana 10/18/24 10:40: SS called pt dtr Zuleima [phone] in regards to pt request, per Zuleima pt son will NOT be staying with the pt for more then maybe 1 week and she is unable to stay with the pt. Zuleima stated she will go check out [facility] today. SS also updated her [facility] also accepted, which she stated she will check with them as well. SS also reminded her [facility] will take her back as well and is willing to have a conversation with her and pt to fix any issues they may have, but Zuleima rather look else where and if all else fails she will speak to [facility]. Original Note: SS met with pt at bedside to discuss DC planning and SNF placement barriers. Pt really wants to return home with HH. Pt stated she has her son and his coming to stay with her for a few weeks tomorrow. Pt stated she has a walker at home. Pt requested to call her dtr Zuleima and ask her to stay with her for one day until her son comes tomorrow.
[2024-10-18] MEDS: AMIODARONE HCL 200 MG TABLET PO (11:53)
--- NOTE | 2024-10-18 12:22 | PC.SS ---
Addendum entered by Joanne Montana 10/18/24 12:32: SS spoke to Angeli at [facility] #[phone], who stated she will reach out to her resource for insurance and call us back Original Note: SS spoke to Zuleima who decided to choose [facility] , SS reached out to Admissions, no answer. SS left a voicemail for a call back. SS reached out to Dina at [facility] to inform her of pt choice.
--- NOTE | 2024-10-18 12:37 | PC.SS ---
Addendum entered by Joanne Montana 10/18/24 13:25: SS spoke to Kianna at [employer] who stated she will check if they are contracted and have team generate auth. SS updated Angeli at [facility] via [facility] Original Note: SS attempted to contact pt insurance [employer] (Kianna [phone] EXT: [phone]) in regards to auth for [facility], no answer. VM left.
--- NOTE | 2024-10-18 13:50 | ESDS_ITS ---
<Statement entered by Sukumar Munoz MD - 10/18/24 21:59> I have reviewed the note and agree with the resident's assessment & plan with exceptions as below. I have personally reviewed labs, imaging, home meds/prior records, examined the patient, formulated and discussed management plan with the IM team. Pt did appear to have some bradycardia that did occur at night, as low as 48, BP did appear to be at her baseline around 100s SBP, and pt was not symptomatic. Spoke with cardiology who recommended to continue with Amio 200 mg qday, Cardizem 120 mg CD, in addition to A/C of Eliquis. Pt to follow up with Cardiology. Pt to be discharged to SNF. Pt will need to follow discharge instructions as outlined below. Sukumar Munoz, PGY-2 Internal Medicine Planned Discharge Date 10/18/24 DS: Providers Provider Date of admission: 10/14/24 14:30 Primary care physician: Dov Guerrero MD Admitting Provider: Jose Mendez MD Attending Provider on Admission: Justin Metcalf MD Consults: 10/14/24 14:37 Consult to Cardiology Stat Comment: afib with RVR Consulting Provider: Katie Rey 10/14/24 23:52 Referral Infection Control Routine Comment: Reason for Infection Control Referral: Readmitted within 30 days 10/16/24 18:36 Referral Physical Therapy Routine Comment: Physician Instructions: Attending Provider on DC: Dr. Ingram Discharging Provider: Dr. Ingram DS: Diagnosis Problem List Completed Was Problem List Reviewed/Reconciled?: Yes Hospital Course Hospital Course Hospital course: 89-year-old female with significant past medical history of cataracts, gastric ulcer, carpal tunnel syndrome and recently diagnosed atrial fibrillation on recent admission, readmitted due atrial fibrillation with RVR secondary to UTI. Patient's chief complaint was lower abdominal pain. EKG showed atrial fibrillation with rapid ventricular rate, heart rate around 140. Labs on admission: mild leukocytosis, ESR 54, CRP 8, BUN 31, creatinine 1, TSH 5.76, free T41.44. [id number]-NEHb is 3, HASBLED score is 1. Patient was started on diltiazem drip in the ED, cardiology was consulted and adjusted her diltiazem dosing accordingly. Patient's urine Cx grew E. coli, pansensitive. Patient received IV ceftriaxone x 3 days. At time of discharge, patient's diltiazem was held due to Bradycardia in the 50s, cardiology to reinstate at outpatient follow-up. Patient to take amiodarone 200 mg once daily,Eliquis 2.5 mg twice daily. Patient to continue nitrofurantoin 100 mg twice daily for 2 more days. Patient's metoprolol 25 mg was stopped. Patient stable at time of discharge. Discharge instructions: Follow-up with PCP within 1-2 weeks of discharge. * Follow-up with Dr. Rey (Cardiology) within 1 week of discharge. * Continue taking DILTIAZEM 60 mg 4 times daily (dose adjusted). * Continue taking NITROFURANTOIN 100 mg twice daily for 2 more days. * STOP taking METOPROLOL 25 mg twice daily. * STOP taking DILTIAZEM 30 mg daily. * Continue taking medications as prescribed below. * Return to Emergency Room if symptoms persist, worsen, or new symptoms develop. Admission problems: #Atrial fibrillation with rapid ventricular rate #Cystitis - E. coli #Leukocytosis Patient seen and care discussed with my attending physician, Dr. Ingram and my senior resident, Dr. Tammy Vanessa MD PGY-1 Time Spent with Patient Time attestation: Total time spent providing and/or coordinating discharge services: Time spent: Greater than 30 minutes Home Health Home Health Referral Orders: 10/17/24 08:47 Home Health Referral Routine Reason For Exam: Generalized weakness Home-Bound The patient must either because of illness or injury, need the aid of supportive devices such as crutches, canes, wheelchairs, and walkers; the use of special transportation; or the assistance of another person in order to leave their place of residence; OR have a condition such that leaving his or her home is medically contraindicated. In addition, the patient also meets the following criteria: patient is normally unable to leave the home and leaving home requires considerable taxing effort. Addendum to Home Health Certification Practitioner's Certification: I certify that the patient has been under my care in the hospital and the care of attending physician (see below). We had a fsfq-al-zchk encounter on (see date below). My clinical findings indicate that the patient is home bound per the above criteria and the Home Health Services noted in these orders are medically necessary. The primary reason for the oqln-ai-imna encounter is related to the fact that the patient requires home health services. Date Certifying Nmrv-bz-Dfrb Physician Encounter: 10/14/24 Physician's Name who will Assume Oversight for Services: Dov Guerrero Physician's Phone No.who will Assume Oversight for Service: CAGE UNLOADER - Community Resources: No PT to Evaluate: Yes PT to evaluate and provide a treatmnet plan to increase patient's mobility and strength. Wound Care: No IV Therapy: No RN Safety Evaluation: Yes RN to evaluate and create a plan of care that will produce positive outcomes. Palliative Treatment: No Palliative treatment and evaluate the need for hospice. Home Health Aide - Personal Care: No Home Health Aide to assist with any ADL's. Exam Vital Signs Temp Pulse Resp BP Pulse Ox O2 Del Method 97.0 F 68 19 103/44 L 90 L Room Air 10/18/24 08:00 10/18/24 12:00 10/18/24 08:00 10/18/24 12:00 10/18/24 08:00 10/18/24 08:00 Discharge Plan Plan Patient Disposition: Xfer Skilled Nsg Fac (SNF) Disposition Comment: [facility] Patient condition on transfer: Stable Care Plan Goals: * Follow-up with PCP within 1-2 weeks of discharge. * Follow-up with Dr. Rey (Cardiology) within 1 week of discharge. * Continue taking DILTIAZEM 120 mg CD every day. * Continue taking NITROFURANTOIN 100 mg twice daily for 2 more days. * Continue taking AMIODARONE 200 mg once a day. * STOP taking METOPROLOL 25 mg twice daily. * STOP taking DILTIAZEM 30 mg daily. * Continue taking medications as prescribed below. * Return to Emergency Room if symptoms persist, worsen, or new symptoms develop. Prescriptions/Referrals Prescriptions/Med Rec: New nitrofurantoin macrocrystal 100 mg capsule 100 mg PO BID Qty: 4 0RF Rx Instructions: must administer with a meal/food diltiazem HCl 120 mg capsule,extended release 24hr 120 mg PO QDAY Qty: 30 0RF Continued chlorpheniramine maleate [Allergy (chlorpheniramine)] 4 mg Tablet 4 mg PO HSPRN PRN (Reason: Allergy Symptoms) Rx Instructions: do not exceed 2 doses per 24 hrs melatonin 1 mg Tablet 3 mg PO HS PRN (Reason: Insomnia) dgafsxtjrper-Et-xsck-minerals 18-0.4 mg Tablet 1 tab PO QDAY amiodarone 200 mg Tablet 200 mg PO QDAY Qty: 30 0RF sennosides [Laxative (sennosides)] 8.6 mg tablet 8.6 mg PO QDAY PRN (Reason: constipation) 14 Days Qty: 14 0RF apixaban 2.5 mg tablet 2.5 mg PO BID Qty: 30 0RF lactulose 10 gram/15 mL solution 15 ml PO QDAY MDD 3 PRN (Reason: constipation) Qty: 1200 0RF Rx Instructions: take as needed for constipation, Titrate if bowel movement is more than 2-3 daily Discontinued diltiazem HCl 30 mg Tablet 30 mg PO Q8HR 30 Days Qty: 90 0RF metoprolol tartrate 25 mg Tablet 25 mg PO BID 30 Days Qty: 60 0RF nitrofurantoin monohyd/m-cryst [Macrobid] 100 mg capsule 100 mg PO BID 7 Days Qty: 14 0RF Rx Instructions: must administer with a meal/food Referrals: Dov Guerrero MD [Primary Care Provider] - Katie Rey MD [Physician] - Patient/Caregiver Discharge Instructions Education Materials: AFL/Afib, ED Atrial Fibrillation, ED Constipation (Adult) Print Language: Pashto Stand Alone Forms: Marily Award Info., Patient Portal Info Letter Discharge Order Discharge Orders: Discharge (Routine); Ordered 10/18/24 Ordered By: Ivone Macias Quality Discharge Quality Measures VTE prophylaxis Attestestation MD Attestation I have examined the patient, reviewed labs and imaging findings, discussed the case with the resident(s), and reviewed entered orders. I agree with the plan of care as outlined in this note. Time Spent: [address] Nataly MD
--- NOTE | 2024-10-18 15:02 | PC.SS ---
SS spoke to Angeli at [facility] who stated she has auth and pt is cleared to go to facility. SS spoke to [facility] in regards to transport. Pt does not possess coverage for transport. Per Zuleima she will case picker pt around 5pm.
--- NOTE | 2024-10-18 15:58 | ESPR_ITS ---
<Statement entered by Katie Rey MD - 10/22/24 18:02> I personally examined the patient evaluated the patient in telemetry floor patient remains stable now rate controlled A-fib continue amiodarone and Eliquis patient is awaiting transfer to shelter facility clinically quite stable. Agree with the treatment plan recommendation as documented by PGY 2 Dr. Delroy Bynum, Patient appears back in sinus rhythm can be transferred to shelter facility when bed is available Documentation for date of: 10/18/24 Subjective Subjective Interval history: Patient is seen and examined at bedside No acute overnight events. Denies any other complaints except for constipation Appears to be in sinus rhythm with heart rate around 55 to 60 bpm. Diltiazem was not given this morning in view of low heart rate Labs are not done today Recommended to continue amiodarone 200 Mg p.o. daily, Eliquis 2.5 Mg twice daily Patient is supposed to get discharged today but discharge was held as patient did not have any bowel movement since the admission Exam Vital Signs Temp Pulse Resp BP Pulse Ox O2 Del Method 97.0 F 62 19 113/53 L 90 L Room Air 10/18/24 12:00 10/18/24 12:00 10/18/24 12:00 10/18/24 12:00 10/18/24 12:10/18/24 12:00 Narrative Exam General: Awake. Appears poorly nourished HEENT: Normocephalic, atraumatic, mucous membranes moist. Heart: Regular rate and rhythm, no murmurs. Lungs: Clear to auscultation with no wheezing or crackles. Abdomen: Soft, nondistended, nontender, positive bowel sounds. ?No guarding or rebound tenderness. Neurologic: Alert and oriented x3, no gross neurological deficit, and patient able to move all 4 extremities. Extremities: No edema. Skin: No rash or ecchymoses. Objective Labs 10/17/24 04:50 10/17/24 04:50 Quality Measures Quality Measures VTE prophylaxis Advance care planning discussed with:: patient Assessment & Plan Assessment Current Active Medications: Generic Name Dose Route Start Last Admin Trade Name Freq PRN Reason Stop Dose Admin Acetaminophen 650 mg 10/14/24 14:30 Acetaminophen 325 Mg Tablet PO 11/13/24 14:29 Q6H PRN Fever >101.5 Acetaminophen 650 mg 10/14/24 14:30 Acetaminophen 325 Mg Tablet PO 11/13/24 14:29 Q6H PRN PAIN SCALE 1-3 (mild Amiodarone HCl 200 mg 10/19/24 09:00 Amiodarone Hcl 200 Mg Tablet PO 11/18/24 08:59 QDAY [place] Apixaban 2.5 mg 10/14/24 21:00 10/18/24 09:03 Apixaban 2.5 Mg Tablet PO 11/13/24 20:59 2.5 mg BID [place] Administration Diltiazem HCl 240 mg 10/17/24 09:00 10/18/24 12:00 Diltiazem Cd 120 Mg Capcr PO 11/16/24 08:59 Not Given QDAY [place] Nitrofurantoin Macrocrystals 100 mg 10/17/24 09:00 10/18/24 09:03 Nitrofurantoin Macro 100 Mg Capsule PO 10/24/24 08:59 100 mg BID [place] Administration Pantoprazole Sodium 40 mg 10/14/24 15:00 10/18/24 09:03 Pantoprazole 40 Mg Tablet PO 11/13/24 14:59 40 mg QDAY [place] Administration Plan A 89-year-old female with significant past medical history of cataracts, gastric ulcer, carpal tunnel syndrome and recently diagnosed with atrial fibrillation, recent discharge from hospital on 10/11/2024 presented to the hospital with chief complaints of pain in the lower abdomen and cardiology is consulted for atrial fibrillation with rapid ventricular rate # Atrial fibrillation with rapid ventricular rate ---> Normal sinus rhythm - Patient presented to the hospital with lower abdominal pain - On examination, found to have atrial fibrillation with rapid ventricle rate - Vitals are stable. On physical examination, patient appears dehydrated - EKG showed atrial fibrillation with rapid ventricular rate, heart rate around 140 - Labs are significant for mild leukocytosis, ESR 54, CRP 8, BUN 31, creatinine 1, TSH 5.76, free T41.44 - Echo done on 10/04/2024 showed Normal LV. Estimated EF 55%. Mild RVE. RVSP 16mmHg. RAP 10mmHg. Severe LAE. Dual Jet Mild MR. Mild to Moderate TR. Small PFO. - [id number] or is 3, has bled score is 1 Plan - Patient was started on diltiazem drip in the ED - Recommended to continue Eliquis 2.5 Mg twice daily, amiodarone 200 Mg once daily - Held diltiazem today, 10/18/2024 in view of heart rate around 55 to 60 bpm. - Recommended to keep potassium greater than 4 and magnesium greater than 2 #UTI #Cystitis - GNR management as per primary care Patient plan of care was discussed with the [facility], Dr. Candido Bynum, PGY2
--- NOTE | 2024-10-18 17:31 | PC.NURSE ---
Report and discharge instructions called to SNF nurse Leonides at [facility].
== END 2024-10-18 18:20 | disposition skilled nursing facility (03) | DRG 309 ==
LOC: SERX 12:20 → SERHOLD 15:13 → S2NX 23:32
PROVIDERS: Admitting Provider Internal Medicine; Emergency Provider Emergency Medicine; PCP Hospitalist; Visit Provider Hospitalist
DX: I48.91 Unspecified atrial fibrillation (principal); Q21.12 Patent foramen ovale; G56.00 Carpal tunnel syndrome, unspecified upper limb; N30.90 Cystitis, unspecified without hematuria; Z87.11 Personal history of peptic ulcer disease; E86.0 Dehydration; B96.20 Unspecified Escherichia coli [E. coli] as the cause of diseases classified elsewhere; K59.00 Constipation, unspecified; H91.90 Unspecified hearing loss, unspecified ear; Z66 Do not resuscitate; Z79.01 Long term (current) use of anticoagulants; Z79.899 Other long term (current) drug therapy
CPT/HCPCS: 36415; 36600; 71045; 80053; 81001; 82248; 82803; 83605; 83735; 83880; 84100; 84145; 84439; 84443; 84484; 85025; 85379; 85610; 85652; 85730; 86140; 87040; 87077; 87081; 87086; 87186; 87400; 87811; 93005; 96361; 96365; 96366; 96368; 97162; 99285; J0696; J3475; J3490; J7030; J7050; J7999; A9270

== ENCOUNTER 2024-11-22 17:33 | Emergency (ER) | payer MEDICARE, SELFPAY ==
[2024-11-22 17:34] VITALS: BP 145/66; PULSE 68; RESP 16; TEMP 36.9; O2SAT 95; BMI 21.2
[2024-11-22 17:39] VITALS: PULSE 69; RESP 16; O2SAT 96; BMI 21.2
--- NOTE | 2024-11-22 17:52 | XR_ITS ---
Examination: CT cervical spine without contrast 2-D sagittal reconstructions 2-D coronal reconstructions 3-D reconstructions. Exam date and time:November 22, 2024 1901 hours, comparison November 01, 2023 INDICATIONS: Ground-level fall today with injury to the neck, neck pain CTDI:vol (mGy) 11.5. DLP: (mGycm) 238. Technique: Multiple 2 mm axial sections of the cervical spine have been obtained. The coronal and sagittal reconstructions have been obtained. 3-D reconstructions have been obtained. Low dose protocols were performed. One or more of the following dose reduction techniques were used; automated exposure control, adjustment of the mA and/or KV according to patient size, use of iterative reconstruction technique. Findings: Axial sections demonstrate intact base of the skull. C1 exhibit satisfactory relationship to the odontoid. No acute cervical vertebral body fracture seen. Alignment posterior spinous processes satisfactory. Impression: No acute cervical fracture.
--- NOTE | 2024-11-22 17:52 | XR_ITS ---
Examination: Sacrum and coccyx 3 views TECHNIQUE: AP, inclined AP, lateral sacrum and coccyx 3 views Date and time: November 22, 2024 1821 hours INDICATIONS: Patient fell today with injury to the sacrum, sacral pain. FINDINGS: Suspicious for nondisplaced fracture of fifth sacral segment Visualized hips appear intact IMPRESSION: Suspicious for nondisplaced fracture fifth sacral segment, consider CT scan pelvis without contrast follow-up
--- NOTE | 2024-11-22 17:52 | XR_ITS ---
Examination: CT brain head without contrast. 2-D sagittal coronal reconstructions Date and time of exam:November 22, 2024 1901 hours, comparison July 21, 2021 INDICATIONS: Patient is anticoagulated, ground-level fall today head pain CTDI: vol (mGy):44.4 DLP: (mGycm):857 Technique: Multiple CT axial sections of the brain have been obtained, 5 mm slice thickness. Contrast has not been administered. 2-D sagittal, coronal reconstructions have been obtained Low dose protocols were performed. One or more of the following dose reduction techniques were used; automated exposure control, adjustment of the mA and/or KV according to patient size, use of iterative reconstruction technique. Findings: No significant ventricular enlargement. Tiny hyperdensity 4 mm in the brainstem, axial image 29 No mass effect or midline shift Basal cisterns are not remarkable. Fourth ventricle is midline. Cranial vault intact. Impression: 4 mm hyperdensity in the brainstem, axial image 29, which could be artifactual, small area of hemorrhage not excluded, the appearance should be clinically correlated, consider follow-up CT brain scan in the a.m. as clinically warranted
--- NOTE | 2024-11-22 17:54 | PD.EDADULT ---
ED General RME/HPI General Chief complaint: Fall Stated complaint: FALL Time Seen by Provider: 11/22/24 17:52 Arrival date/time: 11/22/24 17:33 CC: Back of head pain left neck pain and coccyx pain HPI patient was in the kitchen cooking when she slipped on food that she had dropped on the floor denies LOC. Patient is on blood thinners. Patient denies shortness of breath or difficulty breathing no other complaints patient denies loss of consciousness altered level of consciousness EMS reports stable vital signs and route. Mode of arrival: EMS Related Data Home Medications ?Medication ?Instructions ?Recorded ?Confirmed chlorpheniramine maleate 4 mg 4 mg PO HSPRN PRN Allergy Symptoms 05/28/23 10/15/24 tablet (Allergy (chlorpheniramine)) melatonin 1 mg tablet 3 mg PO HS PRN Insomnia 05/28/23 10/15/24 lfjxcveunrrv-Iq-xbht-minerals 18 1 tab PO QDAY 05/28/23 10/15/24 mg-0.4 mg tablet Previous Rx's ?Medication ?Instructions ?Recorded apixaban 2.5 mg tablet 2.5 mg PO BID #30 tabs 10/08/24 lactulose 10 gram/15 mL oral 15 ml PO QDAY PRN constipation 10/08/24 solution #1,200 mL nitrofurantoin macrocrystal 100 mg 100 mg PO BID #4 caps 10/17/24 capsule amiodarone 200 mg tablet 200 mg PO QDAY #30 tabs 10/18/24 diltiazem HCl 120 mg 120 mg PO QDAY #30 caps 10/18/24 capsule,extended release 24 hr Allergies Allergy/AdvReac Type Severity Reaction Status Date / Time adhesive tape Allergy Verified 11/22/24 17:45 codeine Allergy Verified 11/22/24 17:45 isosorbide (From Imdur) Allergy Verified 11/22/24 17:45 Penicillins Allergy Verified 11/22/24 17:45 Review of Systems Review of Systems Narrative Review of Systems: GEN: No fever, no chills, no weight loss EYES: No discharge, no visual changes, no pain HEENT: No ear pain, no congestion, no sore throat PULM: No shortness of breath, no cough, no congestion CV: No chest pain, no dyspnea on exertion, no palpitations GI: No nausea, no vomiting, no diarrhea, no pain, no constipation : No frequency, no urgency, no dysuria MUSC/SKEL: No joint pain, no back pain SKIN: No rash PSYCH: No hallucinations, no depression HEME/LYMPH: No easy bleeding or bruising tendencies NEURO: No weakness, + headache Past Medical History Past Medical History NEUROLOGIC: Negative Neurological Disorders or Seizures CARDIAC: Negative Congestive Heart Failure RESPIRATORY: Negative Chronic Obstructive Pulmonary Disease (COPD) GASTROINTESTINAL: Positive Ulcer GENITOURINARY: Negative Renal Disease MUSCULOSKELETAL: Positive Musculoskeletal Disorders, Arthritis and Carpal Tunnel Syndrome ENT: Positive Cataracts and Deafness ENDOCRINE: Negative Diabetes Mellitus Type 1 or Diabetes Mellitus Type 2 OTHER HISTORY: Positive Chicken Pox, Measles and Mumps; Negative Blood Transfusions or Anesthesia Reactions Surgical History SURGICAL: Positive Abdominal Surgery, Joint Replacement and Hysterectomy Social History SMOKING STATUS: Former smoker ED Exam Narrative Physical exam: [General: Frail but not emaciated not in any acute distress Head tenderness with mild edema to the occiput, no active bleeding or abrasion noted. Otherwise no step-off induration or other depressions. HEENT: Eyes pupils are PERRLA EOMs are intact mouth no pink moist membranes uvula is midline swallow symmetrical phonation is normal nose no rhinorrhea no epistaxis ears no otorrhea. No discharge no raccoon's eyes or Rockwell sign. Neck is supple mild left sided tenderness, no spinous process tenderness on palpation. Chest equal chest rise nontender to palpation Respiratory: Clear to auscultation no wheezes crackles or rubs CV: Rate rhythm is regular no murmurs rubs or clicks Abdomen is soft nontender no masses positive bowel sounds all 4 quadrants Back: No CVA tenderness no spinous process tenderness from cervical spine thoracic and lumbar spine. Tenderness with coccyx palpation no obvious deformity appreciated. Skin: Intact no petechiae rash induration ulceration or crepitus Extremities: Moving all extremity against resistance cap refill less than 2 seconds neurosensory intact Neuro: Awake alert oriented x3 Glascow coma 15 no focal deficits] Course Quality Measures none Orders Category Date Time Status MRI Screening NOW Care 11/23/24 07:[address] cervical spine wo con Stat Exams 11/22/24 17:[address] head/brain wo con Routine Exams 11/23/24 06:[address] head/brain wo con Stat Exams 11/22/24 17:52 Completed EKG (ED Only) Stat Exams 11/22/24 21:51 Ordered MR head/brain wo con Stat Exams 11/23/24 Completed XR sacrum coccyx min 2V Stat Exams 11/22/24 17:52 Completed CBC Stat Lab 11/22/24 18:16 Completed CMP [Comprehensive Metabolic Panel] Stat Lab 11/22/24 18:16 Completed PT [Prothrombin Time with INR] Stat Lab 11/22/24 18:16 Completed PTT [Partial Thromboplastin Time] Stat Lab 11/22/24 18:16 Completed Vital Signs Vital signs: Vital Signs Temperature 98.4 F 11/22/24 17:34 Pulse Rate 68 11/22/24 17:34 Respiratory Rate 16 11/22/24 17:34 Blood Pressure 145/66 H 11/22/24 17:34 Pulse Oximetry (%) 95 11/22/24 17:34 Oxygen Delivery Method Room Air 11/22/24 17:34 Discharge Plan Plan Patient Disposition: HOME (Self Care) Patient condition on transfer: Stable Prescriptions/Referrals Prescriptions/Med Rec: No Action chlorpheniramine maleate [Allergy (chlorpheniramine)] 4 mg Tablet 4 mg PO HSPRN PRN (Reason: Allergy Symptoms) Rx Instructions: do not exceed 2 doses per 24 hrs melatonin 1 mg Tablet 3 mg PO HS PRN (Reason: Insomnia) ngweoxxokxbq-Sn-sita-minerals 18-0.4 mg Tablet 1 tab PO QDAY nitrofurantoin macrocrystal 100 mg capsule 100 mg PO BID Qty: 4 0RF Rx Instructions: must administer with a meal/food diltiazem HCl 120 mg capsule,extended release 24hr 120 mg PO QDAY Qty: 30 0RF amiodarone 200 mg Tablet 200 mg PO QDAY Qty: 30 0RF apixaban 2.5 mg tablet 2.5 mg PO BID Qty: 30 0RF lactulose 10 gram/15 mL solution 15 ml PO QDAY MDD 3 PRN (Reason: constipation) Qty: 1200 0RF Rx Instructions: take as needed for constipation, Titrate if bowel movement is more than 2-3 daily Referrals: Braxton Newby MD [Primary Care Provider] - In 1 week Problem List Clinical Impression: Fall, Contusion of head, Chronic anticoagulation Patient/Caregiver Discharge Instructions Education Materials: Exercises to Prevent Falls, Preventing Falls How to ..., ED Head Injury (Adult) Additional Instructions: May take Tylenol 1 g every 6 hours as needed for pain. Print Language: Mongolian Stand Alone Forms: Marily Award Info., Patient Portal Info Letter MDM Clinical Information Provided by patient and EMS Medical Records Reviewed [facility] and EMS Meds/Rx Considered, not Ordered None Labs/Rad/Tests considered, not Ordered None Chronic Illness/Social Conditions Add or document further as needed: A-fib EKG EKG not done EKG Interpretation narrative: EKG performed at 2157 shows a ventricular rate of 5 5 WI interval 218 QRS of 86 is sinus bradycardia first-degree block patient has a history of A-fib and is on blood thinners. P waves are appreciated and the majority of the QRS complexes on this EKG.
[2024-11-22 18:28] LABS: Basophils # (Auto) 0.0 Thou/mm3 (0.0-0.2); Basophils % (Auto) 0 % (0-2.5); Eosinophils # (Auto) 0.1 Thou/mm3 (0.0-0.5); Eosinophils % (Auto) 1 % (0-10); Hematocrit 36.6 % (36.0-46.0); Hemoglobin 11.9 g/dL (12.0-16.0); Immature Granulocytes Auto 0.04 Thou/mm3 (0.00-0.00); Lymphocytes # (Auto) 1.4 Thou/mm3 (1.0-4.8); Lymphocytes % (Auto) 16 % (10-50); Mean Corpuscular HGB Conc 32.5 g/dl (31.0-37.0); Mean Corpuscular Hemoglobin 31.0 pg (25.0-35.0); Mean Corpuscular Volume 95 fL (80-100); Monocytes # (Auto) 1.0 Thou/mm3 (0.0-0.8); Monocytes % (Auto) 11 % (0-12); Neutrophils # (Auto) 6.2 Thou/mm3 (1.8-7.7); Neutrophils % (Auto) 71 % (37-80); Nucleated Red Blood Cell # 0.00 Thou/mm3 (0.00-0.00); Nucleated Red Blood Cell % 0 /100 WBC (0); Platelet Count 277 Thou/mm3 (140-440); RDW Standard Deviation 55.3 fL (36.4-46.3); Red Blood Count 3.84 Miln/mm3 (4.00-5.20); White Blood Count 8.7 Thou/mm3 (3.6-11.0)
[2024-11-22 18:41] LABS: INR 1.2 (0.9-1.3); Partial Thromboplastin Time 28.5 Seconds (22.0-36.0); Prothrombin Time 13.2 Seconds (9.0-12.2)
[2024-11-22 18:45] LABS: Alanine Aminotransferase 11 U/L (10-49); Albumin, Serum 4.1 gm/dL (3.4-4.8); Albumin/Globulin Ratio 2.0 (1.2-2.2); Alkaline Phosphatase 67 U/L (46-116); Anion Gap 10 (7-16); Aspartate Amino Transferase 18 U/L (0-34); BUN/Creatinine Ratio 19 Ratio (12-20); Bilirubin,Total 0.9 mg/dL (0.3-1.2); Blood Urea Nitrogen 17 mg/dL (9-23); Calcium 9.3 mg/dL (8.3-10.6); Calcium (Corrected) 9.3 mg/dL (8.5-10.1); Carbon Dioxide 26.2 mMol/L (20.0-31.0); Chloride 109 mMol/L (98-107); Creatinine (Component) 0.9 mg/dL (0.6-1.3); Estimated Creatinine Clearance 36.4 mL/min (>60); Globulin 2.1 gm/dL (2.3-3.5); Glucose 107 mg/dL (74-106); Osmolality,Calculated 290 (275-295); Potassium 3.4 mMol/L (3.4-5.1); Sodium 145 mMol/L (136-145); Total Protein 6.2 gm/dL (5.7-8.2); eGFR > 60 See Note
[2024-11-22 20:30] VITALS: BP 137/69; PULSE 55; RESP 18; TEMP 36.7; O2SAT 98
[2024-11-22 22:13] VITALS: BP 143/66; PULSE 52; RESP 19; TEMP 36.6; O2SAT 96
--- NOTE | 2024-11-22 23:02 | PD.EDADDENDU ---
Emergency Room Addendum Addendum Narrative: 2300: Care assumed from Ismael Calderón NP. Past medical, surgical, social and family history reviewed. Vitals and home medications reviewed. Results and treatment plan discussed. I will assume the care of the patient at this time and will follow the patient, pending repeat CT head in the morning. Please refer to the emergency department record for history and examination from initial visit.
[2024-11-22 23:49] VITALS: BP 137/61; PULSE 51; RESP 20; TEMP 36.4; O2SAT 96
--- NOTE | 2024-11-23 | XR_ITS ---
Examination: MRI brain without intravenous contrast. Date and time of exam: November 23, 2024 1056 hours INDICATIONS: Injury to the back of the head yesterday, tiny hyperdense area in the brainstem on CT brain scans last night and this morning Technique: Multiple axial and sagittal images of the brain obtained. Siemens high-resolution 1.5 [place] short bore scanners utilized. Sagittal sections, T1-weighted, TR 500, TE 14, are performed. Axial sections proton-density and T2-weighted have been obtained. Inversion recovery axial images, TR 9, 260, TE 111, TI 2500. Diffusion weighted images, axial sections, TR 4800, TE 128, B value 1000 Axial sections, ADC map, TR 4800, TE 128 Findings: Enlargement of the sella turcica is not present. The optic chiasm and infundibular are not remarkable. Prepontine and interpeduncular cisterns are not enlarged. There is no localized enlargement of the medulla or bianca. Fourth ventricle and cerebellar tonsils appear normal in position. No subacute area of hemorrhage density is seen. Mass in the cerebellopontine angle region is not evident. Globes symmetrical. Orbital musculature including medial lateral rectus muscles do not exhibit abnormality. Diffusion-weighted images demonstrate no focus of restricted diffusion. Increased white matter signal prominent Mass effect upon the ventricular system is not identified. Impression: Negative for acute hemorrhage mass effect or midline shift No focal lesion in the brainstem Prominent chronic microvascular white matter change Significant right mastoiditis
[2024-11-23 02:39] VITALS: BP 125/54; PULSE 45; RESP 19; TEMP 36.6; O2SAT 96
[2024-11-23 04:10] VITALS: BP 113/50; PULSE 48; RESP 22; TEMP 36.7; O2SAT 100
--- NOTE | 2024-11-23 06:00 | XR_ITS ---
Examination: CT brain head without contrast. 2-D sagittal coronal reconstructions Date and time of exam: November 23, 2024 0631 hours INDICATIONS: Patient fell yesterday, CT brain scan November 22, 2024 1903 hours Rupinder of possible hemorrhage in the brainstem CTDI: vol (mGy):46.9 DLP: (mGycm):911 Technique: Multiple CT axial sections of the brain have been obtained, 5 mm slice thickness. Contrast has not been administered. 2-D sagittal, coronal reconstructions have been obtained Low dose protocols were performed. One or more of the following dose reduction techniques were used; automated exposure control, adjustment of the mA and/or KV according to patient size, use of iterative reconstruction technique. Findings: No significant ventricular enlargement. There remains a small hyperdense area in the brainstem axial image 29 No mass effect or midline shift Basal cisterns are not remarkable. Fourth ventricle is midline. Cranial vault intact. Impression: There remains a small hyperdense area in the left brainstem pontine level, axial images 29 which may be artifactual Clinical correlation is advised, consider MRI brain without contrast follow-up as clinically warranted
[2024-11-23 06:13] VITALS: BP 128/56; PULSE 54; RESP 23; TEMP 36.8; O2SAT 96
--- NOTE | 2024-11-23 06:17 | PD.EDADDENDU ---
Emergency Room Addendum Addendum Narrative: 0600: Care assumed from Dr. Zambrano, the previous shift emergency physician. Past medical, surgical, social and family history reviewed. Vitals and home medications reviewed. I will assume the care of the patient at this time, pending repeat CT head in the morning and final disposition. Please refer to the emergency department record for history and examination from initial visit.? Physical exam by me shows patient under no acute distress at this time. 0748: Repeat head CT is still showing hemorrhage vs artifact. CT report shows that there remains a small hyperdense area in the left brainstem pontine level, axial images 29 which may be artifactual. Will get MRI of brain. 1408: See MRI results below and plan to discharge with fall, contusion of the head, and chronic anticoagulation. Patient remains clinically stable throughout the emergency department visit. Re-assessment at the time of disposition demonstrates that the patient is in no acute distress. We reviewed all the results, analysis, and treatment plans. Patient is amenable to discharge. Strict return precautions were outlined. Patient was discharged in stable condition. Results Objective Laboratory: Laboratory Last Values WBC 8.7 Thou/mm3 (3.6-11.0) 11/22/24 18:16 RBC 3.84 Miln/mm3 (4.00-5.20) L 11/22/24 18:16 Hgb 11.9 g/dL (12.0-16.0) L 11/22/24 18:16 Hct 36.6 % (36.0-46.0) 11/22/24 18:16 MCV 95 fL (80-100) 11/22/24 18:16 MCH 31.0 pg (25.0-35.0) 11/22/24 18:16 MCHC 32.5 g/dl (31.0-37.0) 11/22/24 18:16 RDW Std Deviation 55.3 fL (36.4-46.3) H 11/22/24 18:16 Plt Count 277 Thou/mm3 (140-440) D 11/22/24 18:16 Neut % (Auto) 71 % (37-80) 11/22/24 18:16 Lymph % (Auto) 16 % (10-50) 11/22/24 18:16 [place] % (Auto) 11 % (0-12) 11/22/24 18:16 Eos % (Auto) 1 % (0-10) 11/22/24 18:16 Baso % (Auto) 0 % (0-2.5) 11/22/24 18:16 Neut # (Auto) 6.2 Thou/mm3 (1.8-7.7) 11/22/24 18:16 Lymph # (Auto) 1.4 Thou/mm3 (1.0-4.8) 11/22/24 18:16 [place] # (Auto) 1.0 Thou/mm3 (0.0-0.8) H 11/22/24 18:16 Eos # (Auto) 0.1 Thou/mm3 (0.0-0.5) 11/22/24 18:16 Baso # (Auto) 0.0 Thou/mm3 (0.0-0.2) 11/22/24 18:16 Immature Gran # (Auto) 0.04 Thou/mm3 (0.00-0.00) H 11/22/24 18:16 Absolute Nucleated RBC 0.00 Thou/mm3 (0.00-0.00) 11/22/24 18:16 Immature Gran % 1 % (0-0) H 11/22/24 18:16 Nucleated RBC % 0 /100 WBC (0) 11/22/24 18:16 PT 13.2 Seconds (9.0-12.2) H 11/22/24 18:16 INR 1.2 (0.9-1.3) 11/22/24 18:16 APTT 28.5 Seconds (22.0-36.0) 11/22/24 18:16 Sodium 145 mMol/L (136-145) 11/22/24 18:16 Potassium 3.4 mMol/L (3.4-5.1) 11/22/24 18:16 Chloride 109 mMol/L (98-107) H 11/22/24 18:16 Carbon Dioxide 26.2 mMol/L (20.0-31.0) 11/22/24 18:16 Anion Gap 10 (7-16) 11/22/24 18:16 BUN 17 mg/dL (9-23) 11/22/24 18:16 Creatinine 0.9 mg/dL (0.6-1.3) 11/22/24 18:16 Estim Creat Clear Calc 36.4 mL/min (>60) L 11/22/24 18:16 eGFR > 60 See Note (60-) 11/22/24 18:16 BUN/Creatinine Ratio 19 Ratio (12-20) 11/22/24 18:16 Glucose 107 mg/dL (74-106) H 11/22/24 18:16 Calculated Osmolality 290 (275-295) 11/22/24 18:16 Calcium 9.3 mg/dL (8.3-10.6) 11/22/24 18:16 Corrected Calcium 9.3 mg/dL (8.5-10.1) 11/22/24 18:16 Total Bilirubin 0.9 mg/dL (0.3-1.2) 11/22/24 18:16 AST 18 U/L (0-34) 11/22/24 18:16 ALT 11 U/L (10-49) 11/22/24 18:16 Alkaline Phosphatase 67 U/L (46-116) 11/22/24 18:16 Total Protein 6.2 gm/dL (5.7-8.2) 11/22/24 18:16 Albumin 4.1 gm/dL (3.4-4.8) 11/22/24 18:16 Globulin 2.1 gm/dL (2.3-3.5) L 11/22/24 18:16 Albumin/Globulin Ratio 2.0 (1.2-2.2) 11/22/24 18:16 Imaging: Procedure(s): CT head/brain [facility] Accession Number(s): [id number] cc: Braxton Newby MD; Ismael Calderón NP; Agustín Dawson MD~ Examination: CT brain head without contrast. 2-D sagittal coronal reconstructions Date and time of exam: November 23, 2024 0631 hours INDICATIONS: Patient fell yesterday, CT brain scan November 22, 2024 1903 hours Rupinder of possible hemorrhage in the brainstem CTDI: vol (mGy):46.9 DLP: (mGycm):911 Technique: Multiple CT axial sections of the brain have been obtained, 5 mm slice thickness. Contrast has not been administered. 2-D sagittal, coronal reconstructions have been obtained Low dose protocols were performed. One or more of the following dose reduction techniques were used; automated exposure control, adjustment of the mA and/or KV according to patient size, use of iterative reconstruction technique. Findings: No significant ventricular enlargement. There remains a small hyperdense area in the brainstem axial image 29 No mass effect or midline shift Basal cisterns are not remarkable. Fourth ventricle is midline. Cranial vault intact. Impression: There remains a small hyperdense area in the left brainstem pontine level, axial images 29 which may be artifactual Clinical correlation is advised, consider MRI brain without contrast follow-up as clinically warranted Dictated By: Agustín Dawson MD Procedure(s): MR head/brain wo con Accession Number(s): [id number] cc: Braxton Newby MD; Agustín Dawson MD; Tayla Kaufman MD~ Examination: MRI brain without intravenous contrast. Date and time of exam: November 23, 2024 1056 hours INDICATIONS: Injury to the back of the head yesterday, tiny hyperdense area in the brainstem on CT brain scans last night and this morning Technique: Multiple axial and sagittal images of the brain obtained. Siemens high-resolution 1.5 [place] short bore scanners utilized. Sagittal sections, T1-weighted, TR 500, TE 14, are performed. Axial sections proton-density and T2-weighted have been obtained. Inversion recovery axial images, TR 9, 260, TE 111, TI 2500. Diffusion weighted images, axial sections, TR 4800, TE 128, B value 1000 Axial sections, ADC map, TR 4800, TE 128 Findings: Enlargement of the sella turcica is not present. The optic chiasm and infundibular are not remarkable. Prepontine and interpeduncular cisterns are not enlarged. There is no localized enlargement of the medulla or bianca. Fourth ventricle and cerebellar tonsils appear normal in position. No subacute area of hemorrhage density is seen. Mass in the cerebellopontine angle region is not evident. Globes symmetrical. Orbital musculature including medial lateral rectus muscles do not exhibit abnormality. Diffusion-weighted images demonstrate no focus of restricted diffusion. Increased white matter signal prominent Mass effect upon the ventricular system is not identified. 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
[2024-11-23 08:09] VITALS: BP 148/64; PULSE 73; RESP 18; TEMP 37; O2SAT 96
[2024-11-23 15:13] VITALS: BP 149/67; PULSE 80; RESP 19; TEMP 36.6; O2SAT 98
== END 2024-11-23 16:42 | disposition home or self-care (01) ==
PROVIDERS: Registered Nurse General Practice; Emergency Provider Emergency Medicine; PCP Family Medicine
DX: S00.93XA Contusion of unspecified part of head, initial encounter (principal); W01.0XXA Fall on same level from slipping, tripping and stumbling without subsequent striking against object, initial encounter; M53.3 Sacrococcygeal disorders, not elsewhere classified
CPT/HCPCS: 36415; 70450; 70551; 72125; 72220; 80053; 85025; 85610; 85730; 99284